=== PATIENT | male | born 1950 | race Caucasian/White ===

== ENCOUNTER 2017-05-30 14:13 | Emergency (ER) | payer OTHER ==
[2017-05-30 14:22] VITALS: BP 143/72; BMI 45.3
--- NOTE | 2017-05-30 14:59 | DR.EXTPAIN ---
HPI - Time seen Time seen: 15:30 - PCP Primary Care Physician: WILMER HEADLEY - HPI Comment HPI Comment: WORSE TODAY. RT CALF MORE SWOLLEN AND RED. - Complaint/Symptoms Chief Complaint Doctor Comments: HISTORY BELOW. Chief Complaint:: ABOUT 3 WEEKS AGO PT NOTICED A SORE TO HIS RIGHT LOWER LEG AND HE HAS AN APPT WITH WILMER HEADLEY ON 06/12/17 AND HE STATES I WAS IN PAIN AND COULD NOT WAIT, Self Treatment fo Chief Complaint: NEOSPORIN, - Nurses notes reviewed Nurses Notes Review: Yes - Source History Provided: Patient - Mode of arrival Mode of Arrival: Ambulatory - Timing Onset of Chief Complaint: 05/13/17 - Context History of: None - Associated signs and symptoms Associated Signs and Symptoms: Pain PMH - PMH Past Medical History: No Past Medical History: Alzheimers, Arthritis, Diabetes, Gout, Hypertension Past Surgical History: No Past Surgical History Comment: GERSON . - Family History History of Family Medical Conditions: Yes Family Medical History: Diabetes Mellitus, Cancer, Heart Failure, Hypertension - Social History Does patient currently use any type of tobacco product: No Have you used tobacco products in the last 12 months: No Type of Tobacco Use: None Does any household member use tobacco: No Alcohol Use: None Do you use any recreational Drugs:: No Lives With: Family Lives Where: Home - infectious screening In the last 2 months have you had wt loss of >10#?: NO Have you had fever, night sweats or hemotysis?: No Have you traveled outside the country in the last 6 months?: No Isolation: Standard ROS - Review of Systems Eyes: No Symptoms Reported ENTM: No Symptoms Reported Respiratoy: No Symptoms Reported Cardiovascular: No Symptoms Reported Gastrointestinal/Abdominal: No Symptoms Reported Genitourinary: No Symptoms Reported Neurological: No Symptoms Reported Musculoskeletal: Leg Integumentary: Change in Color, Other (EDEMA, PAIN) Hematologic/Lymphatic: No Symptoms Reported Endocrine: No Symptoms Reported All Other Systems: Reviewed and Negative PE - Vital Signs Vitals: Temperature 97.2 F Pulse Rate 78 Respiratory Rate 18 Blood Pressure 143/72 O2 Sat by Pulse Oximetry 94 - General Limitations: No Limitations General Appearance: Alert - Head Head Exam: Normal Inspection - Eyes Eye exam: Normal Appearance - ENT ENT Exam: Normal External Ear Exam - Neck Neck Exam: Trachea Midline - Chest Chest Inspection: Symmetric Chest Wall Rise - Respiratory Respiratory Exam: Normal Lung Sounds Bilat Respiratory Exam: Bilateral Rhonchi, Lower Rhonchi - Cardiovascular Cardiovascular Exam: Regular Rate, Normal Rhythm, Normal Heart Sounds - Abdominal Exam Abdominal Exam: Normal Bowel Sounds, Soft. negative: Tenderness - Extremities Extremities Exam: Edema, Calf Tenderness (RT) - Back Back Exam: Normal Inspection, Full ROM. negative: Tenderness - Neurological Neurological Exam: Alert, Oriented X3 - Psychiatric Psychiatric Exam: Normal Affect, Normal Mood - Skin Skin Exam: Rash, Erythema MDM - Differential Diagnosis Differential Diagnosis: Other (CELLULITIS, EDEMA) Course - Treatment Treatment: SEE ORDERS. - Education/Counseling Education/Counseling: Patient, Family, Education Educated On: Diagnosis, Needs for Follow Up ROR - Labs Reviewed Laboratory Results Reviewed?: Yes Result Diagrams: 05/30/17 15:30 05/30/17 15: Laboratory: 05/30/17 15:24 Leg - Left Gram Stain - Final 05/30/17 15:24 Leg - Left Wound Culture - Final Staphylococcus Aureus WBC 9.7 X10^3/uL (3.6-10.0) 05/30/17 15:30 RBC 4.43 X10^6/uL (4.7-6.0) L 05/30/17 15:30 Hgb 13.5 g/dL (13.5-18.0) 05/30/17 15:30 Hct 38.9 % (42.0-54.0) L 05/30/17 15:30 MCV 87.7 fL (80.0-100.0) 05/30/17 15:30 MCH 30.5 pg (27.0-34.0) 05/30/17 15:30 MCHC 34.8 g/dL (33.0-35.0) 05/30/17 15:30 RDW 14.1 % (11.6-16.5) 05/30/17 15:30 Plt Count 261 X10^3/uL (150.0-450.0) 05/30/17 15:30 MPV 7.5 fL (7.4-11.0) 05/30/17 15:30 Neut % 71.0 % (42.0-75.0) 05/30/17 15:30 Lymph % 20.6 % (21.0-51.0) L 05/30/17 15:30 Burnet % 6.7 % (0.0-13.0) 05/30/17 15:30 Eos % 0.8 % (0.9-2.9) L 05/30/17 15:30 Baso % 0.9 % (0.2-1.0) 05/30/17 15:30 Neut # 6.9 x10^3/uL (2.2-4.8) H 05/30/17 15:30 Lymph # 2.0 X10^3/uL (1.3-2.9) 05/30/17 15:30 Burnet # 0.6 x10^3/uL (0.3-0.8) 05/30/17 15:30 Eos # 0.1 x10^3/uL (0.0-0.2) 05/30/17 15:30 Baso # 0.1 X10^3/uL (0.0-0.1) 05/30/17 15:30 Absolute Nucleated RBC 0.0 /100WBC 05/30/17 15:30 Sodium 139 mmol/L (136-145) 05/30/17 15:30 Corrected Sodium TNP 05/30/17 15:30 Potassium 4.3 mmol/L (3.5-5.1) 05/30/17 15:30 Chloride 103 mmol/L (98-107) 05/30/17 15:30 Carbon Dioxide 29.7 mmol/L (21-32) 05/30/17 15:30 BUN 11 mg/dL (7-18) 05/30/17 15:30 Creatinine 1.11 mg/dL (0.70-1.30) 05/30/17 15:30 Est GFR (MDRD) Af Amer > 60 (>60) 05/30/17 15:30 Est GFR (MDRD) Non-Af > 60 (>60) 05/30/17 15:30 Glucose 104 mg/dL (65-99) H 05/30/17 15:30 Calcium 9.1 mg/dL (8.5-10.1) 05/30/17 15:30 Corrected Calcium TNP 05/30/17 15:30 Total Bilirubin 0.40 mg/dL (0.2-1.0) 05/30/17 15:30 AST 12 Units/L (15-37) L 05/30/17 15:30 ALT 18 Units/L (12-78) 05/30/17 15:30 Alkaline Phosphatase 101 Units/L (46-116) 05/30/17 15:30 Total Protein 7.5 g/dL (6.4-8.2) 05/30/17 15:30 Albumin 3.5 g/dL (3.4-5.0) 05/30/17 15:30 Globulin 4.0 g/dL (2.5-4.5) 05/30/17 15:30 Albumin/Globulin Ratio 0.9 Ratio (1.1-2.1) L 05/30/17 15:30 - XRAY XRAY Interpreted by: Radiologist XRAY Findings: REPORT DISCUSS WITH PATIENT. - Diagnosis Discharge Problem: Cellulitis Qualifiers: Site of cellulitis: extremity Site of cellulitis of extremity: lower extremity Laterality: right Qualified Code(s): L03.115 - Cellulitis of right lower limb Edema Qualifiers: Edema type: localized Qualified Code(s): R60.0 - Localized edema - Discharge Plan Disposition: HOME, SELF-CARE Condition: Stable Prescriptions: Amoxicillin & Pot Clavulanate [AUGMENTIN TAB 875 mg/125 mg *] 1 tab PO BID #20 tab Mupirocin Calcium Cream [BACTROBAN CREAM 2%] 1 applic EXT BID #30 gm Sulfamethoxazole-Trimethoprim [BACTRIM DS TAB 800/160 MG *] 1 tab PO BID #20 tab - Follow ups/Referrals Follow ups/Referrals: Mack Fitzpatrick [Primary Care Provider] - 2 days - Instructions Instructions: Cellulitis, Adult, [id number], Edema, [id number] Additional Instructions: RETURN TO ED IF WORSE.
[2017-05-30] MEDS ORDERED: ZOSYN VIAL 3.375 GM 3.375 GM in NS 100 ML IV + SPIKE MINIBAG* 100 ML IV ONE (15:34)
[2017-05-30] MEDS ORDERED: LASIX IVP ONE ×2 (15:34→15:42)
[2017-05-30] MEDS ORDERED: ZOSYN VIAL 3.375 GM IV ONE (15:43)
[2017-05-30] MEDS ORDERED: NS 100 ML IV 200 ML IV ONE (15:43)
--- NOTE | 2017-05-30 15:45 | VAS ---
HISTORY: Right lower extremity edema Study: Right lower extremity venous Doppler Comparison: None Technique: Multiple grayscale sonographic images were obtained. Color duplex Doppler evaluation was p erformed. This examination is severely limited by the patient's body habitus and the degree of edema present in the right lower extremity. Findings: There is poor visualization of the common femoral, superficial femoral, and popliteal veins. The vein s are not visualized adequately enough to confirm normal compression. There does appear to be some fl ow present within the common femoral,and popliteal veins. Distal augmentation is identified in the po pliteal vein but cannot be confirmed in the superficial femoral or common femoral veins. There is a q uestion of some minimal flow present in the common femoral and popliteal veins. This examination is n ondiagnostic for the determination of deep venous thrombosis. IMPRESSION: Nondiagnostic examination for the determination of deep venous thrombosis. Reported By:
[2017-05-30 15:52] LABS: BASOPHILS # (AUTO) 0.1 X10^3/uL (0.0-0.1); BASOPHILS % (AUTO) 0.9 % (0.2-1.0); EOSINOPHILS # (AUTO) 0.1 x10^3/uL (0.0-0.2); EOSINOPHILS % (AUTO) 0.8 % (0.9-2.9); HEMATOCRIT 38.9 % (42.0-54.0); HEMOGLOBIN 13.5 g/dL (13.5-18.0); LYMPHOCYTES % (AUTO) 20.6 % (21.0-51.0); MEAN CORPUSCULAR HEMOGLOBIN 30.5 pg (27.0-34.0); MEAN CORPUSCULAR HGB CONC 34.8 g/dL (33.0-35.0); MEAN CORPUSCULAR VOLUME 87.7 fL (80.0-100.0); MEAN PLATELET VOLUME 7.5 fL (7.4-11.0); MONOCYTES # (AUTO) 0.6 x10^3/uL (0.3-0.8); MONOCYTES % (AUTO) 6.7 % (0.0-13.0); NEUTROPHILS # (AUTO) 6.9 x10^3/uL (2.2-4.8); PLATELET COUNT 261 X10^3/uL (150.0-450.0); RED BLOOD COUNT 4.43 X10^6/uL (4.7-6.0); RED CELL DISTRIBUTION WIDTH 14.1 % (11.6-16.5); WHITE BLOOD COUNT 9.7 X10^3/uL (3.6-10.0)
[2017-05-30 16:04] LABS: ALANINE AMINOTRANSFERASE 18 Units/L (12-78); ALBUMIN 3.5 g/dL (3.4-5.0); ALKALINE PHOSPHATASE 101 Units/L (46-116); ASPARTATE AMINO TRANSFERASE 12 Units/L (15-37); BLOOD UREA NITROGEN 11 mg/dL (7-18); CALCIUM 9.1 mg/dL (8.5-10.1); CARBON DIOXIDE 29.7 mmol/L (21-32); CHLORIDE 103 mmol/L (98-107); CREATININE 1.11 mg/dL (0.70-1.30); SODIUM 139 mmol/L (136-145); TOTAL PROTEIN 7.5 g/dL (6.4-8.2); eGFR BLACK RACES > 60 (>60); eGFR NON BLACK RACES > 60 (>60)
[2017-05-30] MEDS ORDERED: BACTRIM DS TAB PO ONE (17:38)
== END 2017-05-30 18:14 | disposition home or self-care (01) ==
LOC: ER 14:31
DX: L03.115 Cellulitis of right lower limb (principal); R60.0 Localized edema; B95.61 Methicillin susceptible Staphylococcus aureus infection as the cause of diseases classified elsewhere
CPT/HCPCS: 36415; 80053; 85025; 87070; 87075; 87077; 87186; 87205; 93971; 96365; 96374; 96375; 99282; 99283; A4222; J1940; J2543

== ENCOUNTER → 2017-06-25 | Outpatient (CLI) | payer OTHER ==
[2017-05-30 14:22] VITALS: BP 143/72
[~2017-06-25] MED LIST: NS 100 ML IV 100 ML IV ONE
[2017-06-25 09:42] LABS: CREATININE 1.34 mg/dL (0.70-1.30)
--- NOTE | 2017-06-25 17:24 | CT ---
Indication: Claudication . Exam: CTA lower extremities with and without contrast. Technique: Axial spiral images were obtained from the lung bases through the feet before after admini stration of IV contrast. Coronal and sagittal 3D MIP reconstructions were performed. Findings: There are mild linear densities along the lung bases is posteriorly. There is mild calcifie d plaque throughout the aorta extending into the branch vessels causing mild narrowing along the orig in of the superior mesenteric and celiac arteries. There is a stent within the left renal artery . Th ere is moderate calcified plaque throughout the infrarenal aorta with a small 2.5 cm fusiform aneurys m of the infrarenal aorta which tapers distally to the bifurcation. There is no dissection. There is mild hypertrophy of the caudate and left lobes of the liver with fatty replacement throughout. The sp vanda measures 13 cm in length. The adrenals are normal. The kidneys are normal size and function norm ally with no hydronephrosis or renal stones. There is a 3 cm cyst along the lower pole left kidney an d a 1.5 cm cyst along the upper pole. No adenopathy or ascites is seen. The mesentery is unremarkable . The bladder is unremarkable. There is moderate calcified plaque along both iliac arteries causing narrowing in the range of 40-50% throughout . There is mild plaque scattered along both external iliac arteries causing mild 40-50% n arrowing distally. There is mild plaque along the common femoral arteries causing minimal narrowing. There is mild calcified plaque scattered along both proximal superficial femoral artery with moderate plaque seen distally causing moderate narrowing in the range of 70-80% distally to the popliteal art yesica . There is mild to moderate plaque scattered in both popliteal arteries causing mild narrowing di stally . There is mild calcified plaque along both trifurcation vessels which are otherwise patent di stally with the anterior and posterior tibial artery patent into the foot bilaterally. The peroneal a rteries are not well visualized distally. The bones are intact. Impression: Moderate calcified plaque throughout the aorta with a small 2.5 cm fusiform aneurysm of the infrarena l aorta with no dissection . Moderate calcified plaque along both iliac arteries causing 30-50% narrowing throughout. Moderate calcified plaque scattered throughout both superficial femoral arteries which is more severe distally and is causing narrowing in the range of 70-80% Mild to moderate calcified plaque along both popliteal arteries causing 40-50% narrowing distally wit h patent bifurcate trifurcation vessels bilaterally and a 2 vessel runoff seen to both feet. Mild bibasilar atelectasis or scarring Mild chronic liver changes . Left renal cysts. Reported By:
== END ==
LOC: RAD 09:10
PROVIDERS: ATTEND Internal Medicine
DX: I73.89 Other specified peripheral vascular diseases (principal); E11.622 Type 2 diabetes mellitus with other skin ulcer
CPT/HCPCS: 36415; 73706; 82565; 84520; A4222

== ENCOUNTER 2018-11-23 14:58 | Inpatient (IN) ==
[~2018-11-23 14:58] MED LIST changes: +FORTAZ or TAZICEF VIAL INJ IVP ONE; -NS 100 ML IV 100 ML IV ONE; +ROBITUSSIN DM PO ONE
[2018-11-23] MEDS ORDERED: NS 1/2 1000 ML IV IV ONE (16:23)
[2018-11-23] MEDS ORDERED: FORTAZ or TAZICEF VIAL INJ IVP ONE ×2 (16:40→22:00)
[2018-11-23] MEDS ORDERED: LEVAQUIN PREMIX IV 750 MG IV ONE (17:33)
[2018-11-23] MEDS ORDERED: DUONEB 0.5 MG/3 MG NEB ONE (17:34)
[2018-11-23] MEDS ORDERED: SOLU-Medrol 40 MG VIAL IVP ONE (22:00)
[2018-11-23] MEDS ORDERED: ROBITUSSIN DM PO ONE (22:00)
[2018-11-23] MEDS ORDERED: HumuLIN R SUBCUT ONE (22:29)
[2018-11-23] MEDS ORDERED: TYLENOL 325 MG TAB PO ONE (23:31)
[2018-11-24] MEDS ORDERED: ROBITUSSIN DM ONE ×4 (04:00→22:00)
[2018-11-24] MEDS ORDERED: FORTAZ or TAZICEF VIAL INJ ONE ×3 (06:00→14:00)
[2018-11-24] MEDS ORDERED: SOLU-Medrol 40 MG VIAL ONE ×3 (06:00→22:00)
[2018-11-24] MEDS ORDERED: ASPIRIN ONE (08:48)
[2018-11-24] MEDS ORDERED: SYNTHROID 100 mcg TAB ONE (09:00)
[2018-11-24] MEDS ORDERED: JANUVIA PO ONE (09:00)
[2018-11-24] MEDS ORDERED: TRADJENTA PO ONE (09:00)
[2018-11-24] MEDS ORDERED: HumuLIN R ONE ×2 (09:00→12:14)
[2018-11-24] MEDS ORDERED: PLAVIX ONE (09:00)
[2018-11-24] MEDS ORDERED: ZYLOPRIM ONE (09:00)
[2018-11-24] MEDS ORDERED: PriLOSEC ONE (09:00)
[2018-11-24] MEDS ORDERED: GLUCOTROL XL ONE (09:00)
[2018-11-24] MEDS ORDERED: COZAAR ONE (09:00)
[2018-11-24] MEDS ORDERED: MOBIC TAB 15 MG PO ONE (09:00)
[2018-11-24] MEDS ORDERED: ZOCOR TAB 40 MG ONE (09:00)
[2018-11-24] MEDS ORDERED: HYDROCHLOROTHIAZIDE 12.5 MG CAP ONE (09:00)
[2018-11-24] MEDS ORDERED: MIRALAX POWDER (1 DOSE 17 G) ONE (09:00)
[2018-11-24] MEDS ORDERED: NORCO 10/325 TAB ONE ×3 (10:00→22:00)
[2018-11-24] MEDS ORDERED: GLUCOPHAGE ONE ×2 (10:00→22:00)
[2018-11-24] MEDS ORDERED: NS 1/2 1000 ML IV ONE (10:50)
[2018-11-24] MEDS ORDERED: NS 1000 ML ONE ×2 (12:00→23:05)
[2018-11-24] MEDS ORDERED: SODIUM BICARBONATE 8.4% INJ ADULT ONE (12:00)
[2018-11-24] MEDS ORDERED: VANCOMYCIN HCL 1 GM VIAL ONE (12:00)
[2018-11-24] MEDS ORDERED: MORPHINE SULFATE INJ 2 MG INJ ONE ×2 (12:00→16:00)
[2018-11-24] MEDS ORDERED: D5 1/2 NS 1000 ML ONE (17:30)
[2018-11-24] MEDS ORDERED: ANTIVERT TAB 25 MG ONE (21:00)
[2018-11-24] MEDS ORDERED: NORVASC TAB 5 MG ONE (21:00)
[2018-11-24] MEDS ORDERED: ZyrTEC TAB 10 MG ONE (21:00)
[2018-11-24] MEDS ORDERED: LANOXIN INJ ONE (23:05)
[2018-11-25] MEDS ORDERED: SODIUM BICARBONATE 8.4% INJ ADULT IV ONE ×2 (01:20→22:00)
[2018-11-25] MEDS ORDERED: NS 1000 ML IV ONE ×2 (01:20→22:00)
[2018-11-25] MEDS ORDERED: NORCO 10/325 TAB PO ONE ×3 (04:00→18:45)
[2018-11-25] MEDS ORDERED: ROBITUSSIN DM PO ONE ×4 (04:00→21:00)
[2018-11-25] MEDS ORDERED: HumuLIN R SUBCUT ONE ×2 (05:30→12:30)
[2018-11-25] MEDS ORDERED: SOLU-Medrol 40 MG VIAL IVP ONE ×3 (06:00→22:00)
[2018-11-25] MEDS ORDERED: ZyrTEC TAB 10 MG PO ONE (08:00)
[2018-11-25] MEDS ORDERED: HYZAAR 50/12.5 MG PO ONE (08:00)
[2018-11-25] MEDS ORDERED: MIRALAX POWDER (1 DOSE 17 G) PO ONE (08:00)
[2018-11-25] MEDS ORDERED: ZOCOR TAB 40 MG PO ONE (08:00)
[2018-11-25] MEDS ORDERED: PriLOSEC PO ONE (08:00)
[2018-11-25] MEDS ORDERED: SYNTHROID 100 mcg TAB PO ONE (08:00)
[2018-11-25] MEDS ORDERED: ZYLOPRIM PO ONE (08:00)
[2018-11-25] MEDS ORDERED: LEVAQUIN PREMIX IV 500 MG IV ONE (08:00)
[2018-11-25] MEDS ORDERED: JANUVIA PO ONE (08:00)
[2018-11-25] MEDS ORDERED: PLAVIX PO ONE (08:00)
[2018-11-25] MEDS ORDERED: TRADJENTA PO ONE (08:00)
[2018-11-25] MEDS ORDERED: GLUCOTROL XL PO ONE (08:00)
[2018-11-25] MEDS ORDERED: GLUCOPHAGE PO ONE ×2 (08:00→21:00)
[2018-11-25] MEDS ORDERED: MOBIC TAB 15 MG PO ONE (08:00)
[2018-11-25] MEDS ORDERED: ECOTRIN TAB 325 MG PO ONE (08:00)
[2018-11-25] MEDS ORDERED: NS 250 ML IV IV ONE (13:00)
[2018-11-25] MEDS ORDERED: VANCOMYCIN HCL 1 GM VIAL IV ONE (13:00)
[2018-11-25] MEDS ORDERED: FORTAZ or TAZICEF VIAL INJ IVP ONE ×2 (14:00→22:00)
[2018-11-25] MEDS ORDERED: MILK OF MAGNESIA PO ONE (21:00)
[2018-11-25] MEDS ORDERED: COLACE CAP 100 MG PO ONE (21:00)
[2018-11-25] MEDS ORDERED: ANTIVERT TAB 25 MG PO ONE (21:00)
[2018-11-26] MEDS ORDERED: MORPHINE SULFATE INJ 2 MG INJ IVP PRN ×2 (05:42→06:41)
[2018-11-26] MEDS ORDERED: TYLENOL 325 MG TAB PO PRN (06:32)
[2018-11-26 06:52] LABS: BASOPHILS % (AUTO) 0.1 % (0.2-1.0); HEMATOCRIT 33.7 % (42.0-54.0); HEMOGLOBIN 11.6 g/dL (13.5-18.0); LYMPHOCYTES # (AUTO) 0.5 X10^3/uL (1.3-2.9); LYMPHOCYTES % (AUTO) 3.4 % (21.0-51.0); MEAN CORPUSCULAR HEMOGLOBIN 31.2 pg (27.0-34.0); MEAN CORPUSCULAR HGB CONC 34.3 g/dL (33.0-35.0); MEAN CORPUSCULAR VOLUME 90.9 fL (80.0-100.0); MEAN PLATELET VOLUME 8.1 fL (7.4-11.0); MONOCYTES # (AUTO) 0.4 x10^3/uL (0.3-0.8); MONOCYTES % (AUTO) 2.6 % (0.0-13.0); NEUTROPHILS # (AUTO) 13.9 x10^3/uL (2.2-4.8); NEUTROPHILS % (AUTO) 93.9 % (42.0-75.0); PLATELET COUNT 280 X10^3/uL (150.0-450.0); RED BLOOD COUNT 3.71 X10^6/uL (4.7-6.0); RED CELL DISTRIBUTION WIDTH 15.1 % (11.6-16.5); WHITE BLOOD COUNT 14.8 X10^3/uL (3.6-10.0)
[2018-11-26 07:07] LABS: ALBUMIN 1.9 g/dL (3.4-5.0); CALCIUM 9.2 mg/dL (8.5-10.1); CARBON DIOXIDE 24.7 mmol/L (21-32); COR CA(FOR HYPOALB) 10.9 mg/dL (8.5-10.1); CREATININE 2.56 mg/dL (0.70-1.30); TOTAL PROTEIN 6.6 g/dL (6.4-8.2)
[2018-11-26 07:23] LABS: CARBON DIOXIDE 22.2 mmol/L (21-32); CREATININE 3.36 mg/dL (0.70-1.30)
[2018-11-26 07:24] LABS: ALBUMIN 1.9 g/dL (3.4-5.0); COR CA(FOR HYPOALB) 10.7 mg/dL (8.5-10.1); TOTAL PROTEIN 6.8 g/dL (6.4-8.2)
[2018-11-26 07:25] LABS: BASOPHILS % (AUTO) 0.4 % (0.2-1.0); EOSINOPHILS % (AUTO) 0.1 % (0.9-2.9); HEMATOCRIT 35.3 % (42.0-54.0); LYMPHOCYTES % (AUTO) 1.8 % (21.0-51.0); MEAN CORPUSCULAR HEMOGLOBIN 30.9 pg (27.0-34.0); MEAN CORPUSCULAR VOLUME 90.7 fL (80.0-100.0); MEAN PLATELET VOLUME 8.3 fL (7.4-11.0); MONOCYTES % (AUTO) 1.6 % (0.0-13.0); NEUTROPHILS % (AUTO) 96.1 % (42.0-75.0); PLATELET COUNT 260 X10^3/uL (150.0-450.0); RED BLOOD COUNT 3.89 X10^6/uL (4.7-6.0); WHITE BLOOD COUNT 20.8 X10^3/uL (3.6-10.0)
[2018-11-26 07:26] LABS: BASOPHILS # (AUTO) 0.1 X10^3/uL (0.0-0.1); ERYTHROCYTE SEDIMENTATION RATE 102 MM/HOUR (0-15); LYMPHOCYTES # (AUTO) 0.4 X10^3/uL (1.3-2.9); MONOCYTES # (AUTO) 0.3 x10^3/uL (0.3-0.8); PLATELET MORPHOLOGY COMMENT NORMAL (NORMAL)
[2018-11-26 07:28] LABS: APPEARANCE,URINE SLIGHTLY HAZY (CLEAR); COLOR,URINE YELLOW (YELLOW)
[2018-11-26 07:29] LABS: BILIRUBIN,URINE NEGATIVE (NEGATIVE); BLOOD/HEMOGLOBIN,URINE 2+ (NEGATIVE); GLUCOSE, URINE NEGATIVE (NEGATIVE); KETONES,URINE NEGATIVE (NEGATIVE); LEUKOCYTE ESTERASE ,URINE NEGATIVE (NEGATIVE); NITRITES,URINE NEGATIVE (NEGATIVE); PROTEIN,URINE 2+ (NEGATIVE); UROBILINOGEN,URINE NORMAL (NORMAL)
[2018-11-26 07:30] LABS: AMORPHOUS SEDIMENT,UR 2+ /HPF (NEGATIVE); BACTERIA,URINE TRACE /HPF (NEGATIVE); HYALINE CASTS, URINE FEW /LPF (NEGATIVE); SQUAMOUS EPITHELIAL CELL,UR FEW /HPF (NEGATIVE)
[2018-11-26 07:32] LABS: CARBON DIOXIDE 23.6 mmol/L (21-32); CREATININE 4.08 mg/dL (0.70-1.30)
[2018-11-26 07:33] LABS: ALBUMIN 2.1 g/dL (3.4-5.0); CALCIUM 9.1 mg/dL (8.5-10.1); CKMB % 1.8 % (<4); COR CA(FOR HYPOALB) 10.6 mg/dL (8.5-10.1); CREATINE KINASE MB 1.7 ng/mL (0-4.0); TROPONIN I 0.03 ng/mL (0-1.5)
[2018-11-26 07:34] LABS: HEMOGLOBIN 12.1 g/dL (13.5-18.0); LYMPHOCYTES % (AUTO) 1.8 % (21.0-51.0); MEAN CORPUSCULAR HEMOGLOBIN 31.2 pg (27.0-34.0); MEAN CORPUSCULAR HGB CONC 34.6 g/dL (33.0-35.0); MEAN CORPUSCULAR VOLUME 90.1 fL (80.0-100.0); MONOCYTES % (AUTO) 1.5 % (0.0-13.0); NEUTROPHILS % (AUTO) 96.4 % (42.0-75.0); PLATELET COUNT 215 X10^3/uL (150.0-450.0); RED BLOOD COUNT 3.88 X10^6/uL (4.7-6.0); RED CELL DISTRIBUTION WIDTH 14.8 % (11.6-16.5); WHITE BLOOD COUNT 16.9 X10^3/uL (3.6-10.0)
[2018-11-26 07:35] LABS: BAND NEUTROPHILS % 6 % (0-10); BASOPHILS % (AUTO) 0.2 % (0.2-1.0); EOSINOPHILS % (AUTO) 0.1 % (0.9-2.9); LYMPHOCYTES # (AUTO) 0.3 X10^3/uL (1.3-2.9); MONOCYTES # (AUTO) 0.3 x10^3/uL (0.3-0.8); NEUTROPHILS # (AUTO) 16.3 x10^3/uL (2.2-4.8); PLATELET MORPHOLOGY COMMENT NORMAL (NORMAL)
[2018-11-26 07:40] LABS: ALBUMIN 2.5 g/dL (3.4-5.0); CALCIUM 9.2 mg/dL (8.5-10.1); CARBON DIOXIDE 25.4 mmol/L (21-32); CKMB % 1.3 % (<4); COR CA(FOR HYPOALB) 10.4 mg/dL (8.5-10.1); CREATINE KINASE MB 1.6 ng/mL (0-4.0); CREATININE 3.87 mg/dL (0.70-1.30); TOTAL PROTEIN 7.6 g/dL (6.4-8.2)
[2018-11-26 07:41] LABS: TROPONIN I 0.07 ng/mL (0-1.5)
[2018-11-26 07:46] LABS: BASOPHILS % (AUTO) 0.2 % (0.2-1.0); HEMATOCRIT 37.4 % (42.0-54.0); HEMOGLOBIN 12.8 g/dL (13.5-18.0); LYMPHOCYTES # (AUTO) 0.6 X10^3/uL (1.3-2.9); LYMPHOCYTES % (AUTO) 3.3 % (21.0-51.0); MEAN CORPUSCULAR HGB CONC 34.2 g/dL (33.0-35.0); MEAN CORPUSCULAR VOLUME 90.7 fL (80.0-100.0); MEAN PLATELET VOLUME 8.4 fL (7.4-11.0); MONOCYTES % (AUTO) 2.6 % (0.0-13.0); NEUTROPHILS # (AUTO) 18.2 x10^3/uL (2.2-4.8); NEUTROPHILS % (AUTO) 93.9 % (42.0-75.0); PLATELET COUNT 217 X10^3/uL (150.0-450.0); RED BLOOD COUNT 4.13 X10^6/uL (4.7-6.0); RED CELL DISTRIBUTION WIDTH 14.6 % (11.6-16.5); WHITE BLOOD COUNT 19.4 X10^3/uL (3.6-10.0)
[2018-11-26 07:47] LABS: BAND NEUTROPHILS % 7 % (0-10); MONOCYTES # (AUTO) 0.5 x10^3/uL (0.3-0.8); PLATELET MORPHOLOGY COMMENT NORMAL (NORMAL)
[2018-11-26 07:57] LABS: BAND NEUTROPHILS % 4 % (0-10); PLATELET MORPHOLOGY COMMENT NORMAL (NORMAL)
[2018-11-26] MEDS ORDERED: MILK OF MAGNESIA PO PRN (08:09)
[2018-11-26] MEDS ORDERED: HYDROCHLOROTHIAZIDE 12.5 MG CAP PO SCH (09:00)
[2018-11-26] MEDS ORDERED: COZAAR PO SCH (09:00)
[2018-11-26] MEDS: PriLOSEC PO SCH (09:06)
[2018-11-26 14:50] LABS: ABG BASE EXCESS -3.4 mmol/L (-2.0-2.0); ABG HCO3 22.7 mmol/L (22-26); FRACTIONATED INSPIRED OXYGEN 100
[2018-11-26 15:33] LABS: ABG HCO3 23.1 mmol/L (22-26); FRACTIONATED INSPIRED OXYGEN 40
[2018-11-26] MEDS: HumuLIN R SUBCUT PRN ×2 (17:39→20:53)
--- NOTE | 2018-11-26 17:47 | PCM.PROG ---
Progress Note - Progress Note for Day of Date of Exam: 11/25/18 - Subjective Subjective: the patient is a 68-year-old white male who was admitted secondary to acute respiratory failure with multifocal pneumonia. Patient continues to be on BiPAP. Patient is alert and oriented. It got very tachycardic with rates to 1 twice a day. Blood pressure has been in systolic range of 70-90. Patient denies any complaints at present. - Past Medical Family Social History Past Med/Fam/Surg Hx: No changes since H&P Allergies: Allergies No Known Drug Allergies Allergy (Verified 05/30/17 14:17) - Review of Systems ROS: No change since H&P - Vital Signs and I&O's Vital Signs: Blood Pressure 143/72 - Physical Exam Oriented: Normal Eyes: Normal Ear: Normal Nose: Normal Throat: Normal Respiratory: Diminished, OTHER (BiPAP) Cardiovascular: Tachycardia : Normal Auscultation: Bowel Sounds: Normal Palpation: Normal Tenderness: Normal Skin: Other (PVD changes to BLE) Musculoskeletal: Swelling (BLE) Psychiatric: Normal Mood Description: Calm Affect: Normal Speech Pattern: Clear - Laboratory and Diagnostics Result Diagrams: 11/26/18 05:36 11/26/18 05:36 Labs: 11/25/18 13:05 Sputum - Expectorated Sputum Sputum Culture - Preliminary 11/25/18 13:05 Sputum - Expectorated Sputum - Final 11/23/18 16:30 Blood Blood Culture - Preliminary 11/23/18 16:20 Blood Blood Culture - Preliminary 11/23/18 23:57 Blood Blood Culture - Preliminary 11/23/18 23:54 Blood Blood Culture - Preliminary 11/24/18 11:02 Sputum - Expectorated Sputum Sputum Culture - Final 11/24/18 11:02 Sputum - Expectorated Sputum - Final Laboratory WBC 14.8 X10^3/uL (3.6-10.0) H 11/26/18 05:36 RBC 3.71 X10^6/uL (4.7-6.0) L 11/26/18 05:36 Hgb 11.6 g/dL (13.5-18.0) L 11/26/18 05:36 Hct 33.7 % (42.0-54.0) L 11/26/18 05:36 MCV 90.9 fL (80.0-100.0) 11/26/18 05:36 MCH 31.2 pg (27.0-34.0) 11/26/18 05:36 MCHC 34.3 g/dL (33.0-35.0) 11/26/18 05:36 RDW 15.1 % (11.6-16.5) 11/26/18 05:36 Plt Count 280 X10^3/uL (150.0-450.0) 11/26/18 05:36 Plt Count Comment Adequate (ADEQUATE) 11/26/18 05:36 MPV 8.1 fL (7.4-11.0) 11/26/18 05:36 Neut % (Auto) 93.9 % (42.0-75.0) H 11/26/18 05:36 Lymph % (Auto) 3.4 % (21.0-51.0) L 11/26/18 05:36 Mcdonald % (Auto) 2.6 % (0.0-13.0) 11/26/18 05:36 Eos % (Auto) 0.0 % (0.9-2.9) L 11/26/18 05:36 Baso % (Auto) 0.1 % (0.2-1.0) L 11/26/18 05:36 Neut # (Auto) 13.9 x10^3/uL (2.2-4.8) H 11/26/18 05:36 Lymph # (Auto) 0.5 X10^3/uL (1.3-2.9) L 11/26/18 05:36 Mcdonald # (Auto) 0.4 x10^3/uL (0.3-0.8) 11/26/18 05:36 Eos # (Auto) 0.0 x10^3/uL (0.0-0.2) 11/26/18 05:36 Baso # (Auto) 0.0 X10^3/uL (0.0-0.1) 11/26/18 05:36 Absolute Nucleated RBC 0.0 /100WBC 11/26/18 05:36 Total Counted 100 11/26/18 05:36 Neutrophils % (Manual) 92 % (39-76) H 11/26/18 05:36 Band Neutrophils % 4 % (0-10) 11/26/18 05:36 Lymphocytes % (Manual) 2 % (13-43) L 11/26/18 05:36 Monocytes % (Manual) 2 % (4-9) L 11/26/18 05:36 Eosinophils % (Manual) 1 % (0-6) 11/25/18 05:25 Plt Morphology Comment Normal (NORMAL) 11/26/18 05:36 RBC Morphology Normal (NORMAL) 11/26/18 05:36 ESR 102 MM/HOUR (0-15) H 11/25/18 05:25 INR Target Range - 11/23/18 15:05 INR 1.26 (0.8-1.3) 11/23/18 15:05 APTT 33.1 SECONDS (22.9-36.5) 11/23/18 15:05 PTT Comment - 11/23/18 15:05 D-Dimer 3250 ng/mL (0-400) H* 11/23/18 15:05 Sample Site Rb 11/26/18 11:25 ABG pH 7.370 (7.35-7.45) 11/26/18 11:25 ABG pCO2 40.0 mmHg (35.0-45.0) 11/26/18 11:25 ABG pO2 69.0 mmHg (80.0-100.0) L 11/26/18 11:25 ABG HCO3 23.1 mmol/L (22-26) 11/26/18 11:25 ABG O2 Saturation 93.0 % (90-100) 11/26/18 11:25 ABG Base Excess -2.0 mmol/L (-2.0-2.0) 11/26/18 11:25 Krzysztof Test Na 11/26/18 11:25 A-a Gradient 166.0 mmHg 11/26/18 11:25 FiO2 40 11/26/18 11:25 Blood Gas Comments Nathalie well 11/26/18 11:25 Sodium 140 mmol/L (136-145) 11/26/18 05:36 Corrected Sodium 146 mmol/L (136-145) H 11/26/18 05:36 Potassium 4.3 mmol/L (3.5-5.1) 11/26/18 05:36 Chloride 104 mmol/L (98-107) 11/26/18 05:36 Carbon Dioxide 24.7 mmol/L (21-32) 11/26/18 05:36 BUN 88 mg/dL (7-18) H 11/26/18 05:36 Creatinine 2.56 mg/dL (0.70-1.30) H 11/26/18 05:36 Est GFR (MDRD) Af Amer 32 (>60) L 11/26/18 05:36 Est GFR (MDRD) Non-Af 27 (>60) L 11/26/18 05:36 Glucose 335 mg/dL (65-99) H 11/26/18 05:36 Lactic Acid 2.4 mmol/L (0.4-2.0) H 11/23/18 16:20 Calcium 9.2 mg/dL (8.5-10.1) 11/26/18 05:36 Corrected Calcium 10.9 mg/dL (8.5-10.1) H 11/26/18 05:36 Total Bilirubin 0.30 mg/dL (0.2-1.0) 11/26/18 05:36 AST 18 Units/L (15-37) 11/26/18 05:36 ALT 20 Units/L (12-78) 11/26/18 05:36 Alkaline Phosphatase 105 Units/L (46-116) 11/26/18 05:36 Creatine Kinase 95 Units/L (39-308) 11/24/18 08:40 CK-MB (CK-2) 1.7 ng/mL (0-4.0) 11/24/18 08:40 CK/CKMB % Calc 1.8 % (<4) 11/24/18 08:40 Troponin I 0.03 ng/mL (0-1.5) 11/24/18 08:40 B-Natriuretic Peptide 165 pg/mL (0-79) H 11/23/18 15:05 Total Protein 6.6 g/dL (6.4-8.2) 11/26/18 05:36 Albumin 1.9 g/dL (3.4-5.0) L 11/26/18 05:36 Globulin 4.7 g/dL (2.5-4.5) H 11/26/18 05:36 Albumin/Globulin Ratio 0.4 Ratio (1.1-2.1) L 11/26/18 05:36 Specimen Type Random urine 11/24/18 19:15 Urine Color Yellow (YELLOW) 11/24/18 19:15 Urine Appearance Slightly hazy (CLEAR) 11/24/18 19:15 Urine pH 5.0 (5.0 - 8.0) 11/24/18 19:15 Ur Specific Reading 1.020 (1.000-1.030) 11/24/18 19:15 Urine Protein 2+ (NEGATIVE) 11/24/18 19:15 Urine Glucose (UA) Negative (NEGATIVE) 11/24/18 19:15 Urine Ketones Negative (NEGATIVE) 11/24/18 19:15 Urine Occult Blood 2+ (NEGATIVE) 11/24/18 19:15 Urine Nitrite Negative (NEGATIVE) 11/24/18 19:15 Urine Bilirubin Negative (NEGATIVE) 11/24/18 19:15 Urine Urobilinogen Normal (NORMAL) 11/24/18 19:15 Ur Leukocyte Esterase Negative (NEGATIVE) 11/24/18 19:15 Urine RBC 5-10 /HPF (NONE SEEN) 11/24/18 19:15 Urine WBC 0-2 /HPF (NONE SEEN) 11/24/18 19:15 Ur Squamous Epith Cells Few /HPF (NEGATIVE) 11/24/18 19:15 Amorphous Sediment 2+ /HPF (NEGATIVE) 11/24/18 19:15 Urine Bacteria Trace /HPF (NEGATIVE) 11/24/18 19:15 Hyaline Casts Few /LPF (NEGATIVE) 11/24/18 19:15 Ur Culture Indicated? No/not indicated 11/24/18 19:15 - Plan (1) Tachycardia Status: Acute Plan: Monitor rate and hypotension (2) Acute respiratory failure Status: Acute Qualifiers: Respiratory failure complication: hypoxia and hypercapnia Qualified Code(s): J96.01 - Acute respiratory failure with hypoxia; J96.02 - Acute respiratory failure with hypercapnia Plan: BIPAP (3) Chronic systolic heart failure Status: Acute Plan: Monitor IVF and kidney function (4) Hypoxia Status: Acute Plan: BiPap (5) Pneumonia Status: Acute Plan: Continue IV antibiotics (6) Edema Status: Acute Plan: Monitor kidney function
--- NOTE | 2018-11-26 17:51 | PCM.PROG ---
Progress Note - Progress Note for Day of Date of Exam: 11/26/18 - Subjective Subjective: The patient is a 68-year-old white male who was admitted secondary to acute respiratory failure with multifocal pneumonia. Patient continues to be on BiPAP at 30%. Patient denies the when on nasal cannula. Patient is alert and oriented. Tachycardia and hypotension have resolved. Patient denies any complaints at present. - Past Medical Family Social History Past Med/Fam/Surg Hx: No changes since H&P Allergies: Allergies No Known Drug Allergies Allergy (Verified 05/30/17 14:17) - Review of Systems ROS: No change since H&P - Vital Signs and I&O's Vital Signs: Pulse Rate [] 82 Respiratory Rate 31 Blood Pressure [] 147/73 Blood Pressure 143/72 O2 Sat by Pulse Oximetry 92 - Physical Exam Oriented: Normal Eyes: Normal Ear: Normal Nose: Normal Throat: Normal Respiratory: Diminished, OTHER (BiPAP) Cardiovascular: Tachycardia : Normal Auscultation: Bowel Sounds: Normal Tenderness: Normal Skin: Other (PVD changes to BLE) Musculoskeletal: Swelling (BLE) Psychiatric: Normal Mood Description: Calm Affect: Normal Speech Pattern: Clear - Laboratory and Diagnostics Result Diagrams: 11/26/18 05:36 11/26/18 05:36 Labs: 11/25/18 13:05 Sputum - Expectorated Sputum Sputum Culture - Preliminary 11/25/18 13:05 Sputum - Expectorated Sputum - Final 11/23/18 16:30 Blood Blood Culture - Preliminary 11/23/18 16:20 Blood Blood Culture - Preliminary 11/23/18 23:57 Blood Blood Culture - Preliminary 11/23/18 23:54 Blood Blood Culture - Preliminary 11/24/18 11:02 Sputum - Expectorated Sputum Sputum Culture - Final 11/24/18 11:02 Sputum - Expectorated Sputum - Final Laboratory WBC 14.8 X10^3/uL (3.6-10.0) H 11/26/18 05:36 RBC 3.71 X10^6/uL (4.7-6.0) L 11/26/18 05:36 Hgb 11.6 g/dL (13.5-18.0) L 11/26/18 05:36 Hct 33.7 % (42.0-54.0) L 11/26/18 05:36 MCV 90.9 fL (80.0-100.0) 11/26/18 05:36 MCH 31.2 pg (27.0-34.0) 11/26/18 05:36 MCHC 34.3 g/dL (33.0-35.0) 11/26/18 05:36 RDW 15.1 % (11.6-16.5) 11/26/18 05:36 Plt Count 280 X10^3/uL (150.0-450.0) 11/26/18 05:36 Plt Count Comment Adequate (ADEQUATE) 11/26/18 05:36 MPV 8.1 fL (7.4-11.0) 11/26/18 05:36 Neut % (Auto) 93.9 % (42.0-75.0) H 11/26/18 05:36 Lymph % (Auto) 3.4 % (21.0-51.0) L 11/26/18 05:36 Ray % (Auto) 2.6 % (0.0-13.0) 11/26/18 05:36 Eos % (Auto) 0.0 % (0.9-2.9) L 11/26/18 05:36 Baso % (Auto) 0.1 % (0.2-1.0) L 11/26/18 05:36 Neut # (Auto) 13.9 x10^3/uL (2.2-4.8) H 11/26/18 05:36 Lymph # (Auto) 0.5 X10^3/uL (1.3-2.9) L 11/26/18 05:36 Ray # (Auto) 0.4 x10^3/uL (0.3-0.8) 11/26/18 05:36 Eos # (Auto) 0.0 x10^3/uL (0.0-0.2) 11/26/18 05:36 Baso # (Auto) 0.0 X10^3/uL (0.0-0.1) 11/26/18 05:36 Absolute Nucleated RBC 0.0 /100WBC 11/26/18 05:36 Total Counted 100 11/26/18 05:36 Neutrophils % (Manual) 92 % (39-76) H 11/26/18 05:36 Band Neutrophils % 4 % (0-10) 11/26/18 05:36 Lymphocytes % (Manual) 2 % (13-43) L 11/26/18 05:36 Monocytes % (Manual) 2 % (4-9) L 11/26/18 05:36 Eosinophils % (Manual) 1 % (0-6) 11/25/18 05:25 Plt Morphology Comment Normal (NORMAL) 11/26/18 05:36 RBC Morphology Normal (NORMAL) 11/26/18 05:36 ESR 102 MM/HOUR (0-15) H 11/25/18 05:25 INR Target Range - 11/23/18 15:05 INR 1.26 (0.8-1.3) 11/23/18 15:05 APTT 33.1 SECONDS (22.9-36.5) 11/23/18 15:05 PTT Comment - 11/23/18 15:05 D-Dimer 3250 ng/mL (0-400) H* 11/23/18 15:05 Sample Site Rb 11/26/18 11:25 ABG pH 7.370 (7.35-7.45) 11/26/18 11:25 ABG pCO2 40.0 mmHg (35.0-45.0) 11/26/18 11:25 ABG pO2 69.0 mmHg (80.0-100.0) L 11/26/18 11:25 ABG HCO3 23.1 mmol/L (22-26) 11/26/18 11:25 ABG O2 Saturation 93.0 % (90-100) 11/26/18 11:25 ABG Base Excess -2.0 mmol/L (-2.0-2.0) 11/26/18 11:25 Krzysztof Test Na 11/26/18 11:25 A-a Gradient 166.0 mmHg 11/26/18 11:25 FiO2 40 11/26/18 11:25 Blood Gas Comments Nathalie well 11/26/18 11:25 Sodium 140 mmol/L (136-145) 11/26/18 05:36 Corrected Sodium 146 mmol/L (136-145) H 11/26/18 05:36 Potassium 4.3 mmol/L (3.5-5.1) 11/26/18 05:36 Chloride 104 mmol/L (98-107) 11/26/18 05:36 Carbon Dioxide 24.7 mmol/L (21-32) 11/26/18 05:36 BUN 88 mg/dL (7-18) H 11/26/18 05:36 Creatinine 2.56 mg/dL (0.70-1.30) H 11/26/18 05:36 Est GFR (MDRD) Af Amer 32 (>60) L 11/26/18 05:36 Est GFR (MDRD) Non-Af 27 (>60) L 11/26/18 05:36 Glucose 335 mg/dL (65-99) H 11/26/18 05:36 Lactic Acid 2.4 mmol/L (0.4-2.0) H 11/23/18 16:20 Calcium 9.2 mg/dL (8.5-10.1) 11/26/18 05:36 Corrected Calcium 10.9 mg/dL (8.5-10.1) H 11/26/18 05:36 Total Bilirubin 0.30 mg/dL (0.2-1.0) 11/26/18 05:36 AST 18 Units/L (15-37) 11/26/18 05:36 ALT 20 Units/L (12-78) 11/26/18 05:36 Alkaline Phosphatase 105 Units/L (46-116) 11/26/18 05:36 Creatine Kinase 95 Units/L (39-308) 11/24/18 08:40 CK-MB (CK-2) 1.7 ng/mL (0-4.0) 11/24/18 08:40 CK/CKMB % Calc 1.8 % (<4) 11/24/18 08:40 Troponin I 0.03 ng/mL (0-1.5) 11/24/18 08:40 B-Natriuretic Peptide 165 pg/mL (0-79) H 11/23/18 15:05 Total Protein 6.6 g/dL (6.4-8.2) 11/26/18 05:36 Albumin 1.9 g/dL (3.4-5.0) L 11/26/18 05:36 Globulin 4.7 g/dL (2.5-4.5) H 11/26/18 05:36 Albumin/Globulin Ratio 0.4 Ratio (1.1-2.1) L 07/26/19 05:36 Specimen Type Random urine 11/24/18 19:15 Urine Color Yellow (YELLOW) 11/24/18 19:15 Urine Appearance Slightly hazy (CLEAR) 11/24/18 19:15 Urine pH 5.0 (5.0 - 8.0) 11/24/18 19:15 Ur Specific [place] 1.020 (1.000-1.030) 11/24/18 19:15 Urine Protein 2+ (NEGATIVE) 11/24/18 19:15 Urine Glucose (UA) Negative (NEGATIVE) 11/24/18 19:15 Urine Ketones Negative (NEGATIVE) 11/24/18 19:15 Urine Occult Blood 2+ (NEGATIVE) 11/24/18 19:15 Urine Nitrite Negative (NEGATIVE) 11/24/18 19:15 Urine Bilirubin Negative (NEGATIVE) 11/24/18 19:15 Urine Urobilinogen Normal (NORMAL) 11/24/18 19:15 Ur Leukocyte Esterase Negative (NEGATIVE) 11/24/18 19:15 Urine RBC 5-10 /HPF (NONE SEEN) 11/24/18 19:15 Urine WBC 0-2 /HPF (NONE SEEN) 11/24/18 19:15 Ur Squamous Epith Cells Few /HPF (NEGATIVE) 11/24/18 19:15 Amorphous Sediment 2+ /HPF (NEGATIVE) 11/24/18 19:15 Urine Bacteria Trace /HPF (NEGATIVE) 11/24/18 19:15 Hyaline Casts Few /LPF (NEGATIVE) 11/24/18 19:15 Ur Culture Indicated? No/not indicated 11/24/18 19:15 - Plan (1) Tachycardia Status: Acute Plan: Monitor rate and hypotension (2) Acute respiratory failure Status: Acute Qualifiers: Respiratory failure complication: hypoxia and hypercapnia Qualified Code(s): J96.01 - Acute respiratory failure with hypoxia; J96.02 - Acute respiratory failure with hypercapnia Plan: BIPAP (3) Chronic systolic heart failure Status: Acute Plan: Monitor IVF and kidney function (4) Hypoxia Status: Acute Plan: BiPap (5) Pneumonia Status: Acute Plan: Continue IV antibiotics (6) Edema Status: Acute Plan: Monitor kidney function (7) Hypertension Status: Acute Plan: Current meds on hold due to recent hypotension. Monitor and restart as indicated.
[2018-11-26] MEDS: SOLU-Medrol 40 MG VIAL IVP SCH ×2 (17:53→21:18)
[2018-11-26] MEDS: ROBITUSSIN DM PO SCH ×4 (17:54→20:50)
[2018-11-26] MEDS: ZyrTEC TAB 10 MG PO SCH (17:56)
[2018-11-26] MEDS: PLAVIX PO SCH (17:58)
[2018-11-26] MEDS: TRADJENTA PO SCH (17:58)
[2018-11-26] MEDS: ZYLOPRIM PO SCH (17:58)
[2018-11-26] MEDS: NORCO 10/325 TAB PO SCH ×2 (17:59→18:13)
[2018-11-26] MEDS: JANUVIA PO SCH (18:00)
[2018-11-26] MEDS: MIRALAX POWDER (1 DOSE 17 G) PO SCH (18:00)
[2018-11-26] MEDS: MOBIC TAB 15 MG PO SCH (18:00)
[2018-11-26] MEDS: ECOTRIN TAB 325 MG PO SCH (18:05)
[2018-11-26] MEDS: GLUCOPHAGE PO SCH ×2 (18:05→20:49)
[2018-11-26] MEDS: NS 1000 ML 1,000 ML with SODIUM BICARBONATE 8.4% INJ ADULT 50 ML IV SCH ×4 (18:06→18:07)
[2018-11-26] MEDS: SYNTHROID 100 mcg TAB PO SCH (18:06)
[2018-11-26] MEDS: GLUCOTROL XL PO SCH (18:07)
[2018-11-26] MEDS: FORTAZ or TAZICEF VIAL INJ IVP SCH ×2 (18:12→21:18)
[2018-11-26] MEDS: ANTIVERT TAB 25 MG PO SCH (20:48)
[2018-11-26] MEDS: NORVASC TAB 5 MG PO SCH (20:49)
[2018-11-26] MEDS: MILK OF MAGNESIA PO SCH (20:50)
[2018-11-26] MEDS: ZOCOR TAB 20 MG PO SCH (20:51)
[2018-11-26] MEDS ORDERED: ZOCOR TAB 40 MG PO SCH (21:00)
[2018-11-27] MEDS: XOPENEX 1.25 MG/3 ML NEBULE NEB SCH ×4 (00:13→17:08)
[2018-11-27] MEDS: NORCO 10/325 TAB PO SCH ×5 (04:21→20:50)
[2018-11-27 05:34] LABS: BASOPHILS % (AUTO) 0.3 % (0.2-1.0); HEMATOCRIT 36.3 % (42.0-54.0); HEMOGLOBIN 12.2 g/dL (13.5-18.0); LYMPHOCYTES # (AUTO) 0.6 X10^3/uL (1.3-2.9); LYMPHOCYTES % (AUTO) 4.4 % (21.0-51.0); MEAN CORPUSCULAR HEMOGLOBIN 30.9 pg (27.0-34.0); MEAN CORPUSCULAR HGB CONC 33.6 g/dL (33.0-35.0); MEAN PLATELET VOLUME 8.2 fL (7.4-11.0); MONOCYTES # (AUTO) 0.4 x10^3/uL (0.3-0.8); MONOCYTES % (AUTO) 2.8 % (0.0-13.0); NEUTROPHILS % (AUTO) 92.5 % (42.0-75.0); PLATELET COUNT 324 X10^3/uL (150.0-450.0); RED BLOOD COUNT 3.95 X10^6/uL (4.7-6.0); RED CELL DISTRIBUTION WIDTH 14.9 % (11.6-16.5)
[2018-11-27 05:39] LABS: CALCIUM 9.6 mg/dL (8.5-10.1); CARBON DIOXIDE 24.9 mmol/L (21-32); CREATININE 2.03 mg/dL (0.70-1.30)
[2018-11-27] MEDS: GLUCOTROL XL PO SCH (06:04)
[2018-11-27] MEDS: HumuLIN R SUBCUT PRN ×4 (06:04→20:57)
[2018-11-27] MEDS: FORTAZ or TAZICEF VIAL INJ IVP SCH ×3 (06:06→21:07)
[2018-11-27] MEDS: SYNTHROID 100 mcg TAB PO SCH (06:06)
[2018-11-27] MEDS: SOLU-Medrol 40 MG VIAL IVP SCH ×3 (06:07→21:07)
[2018-11-27] MEDS: LEVAQUIN PREMIX IV 500 MG 500 MG/100 ML BAG IV SCH ×2 (06:08→18:27)
[2018-11-27] MEDS: NS 1000 ML 1,000 ML with SODIUM BICARBONATE 8.4% INJ ADULT 50 ML IV SCH ×4 (06:09→19:57)
[2018-11-27 09:00] LABS: ABG ALLEN TEST POS; ABG BASE EXCESS 2.2 mmol/L (-2.0-2.0); ABG HCO3 26.5 mmol/L (22-26)
[2018-11-27] MEDS: MILK OF MAGNESIA PO SCH ×2 (09:38→20:50)
[2018-11-27] MEDS: PLAVIX PO SCH (09:38)
[2018-11-27] MEDS: ROBITUSSIN DM PO SCH ×4 (09:39→20:51)
[2018-11-27] MEDS: ZYLOPRIM PO SCH (09:39)
[2018-11-27] MEDS: JANUVIA PO SCH (09:39)
[2018-11-27] MEDS: ECOTRIN TAB 325 MG PO SCH (09:39)
[2018-11-27] MEDS: ZyrTEC TAB 10 MG PO SCH (09:39)
[2018-11-27] MEDS: PriLOSEC PO SCH (09:40)
[2018-11-27] MEDS: GLUCOPHAGE PO SCH ×2 (09:40→20:49)
[2018-11-27] MEDS: TRADJENTA PO SCH ×2 (09:41→09:43)
[2018-11-27] MEDS: MOBIC TAB 15 MG PO SCH (09:41)
[2018-11-27] MEDS: MIRALAX POWDER (1 DOSE 17 G) PO SCH (09:42)
[2018-11-27] MEDS ORDERED: XYLOCAINE 1 % (PLAIN) ONE (11:03)
[2018-11-27] MEDS: LR 1000 ML IV 1,000 ML IV SCH (12:49)
[2018-11-27] MEDS ORDERED: NS 100 ML IV + SPIKE MINIBAG* 100 ML ONE (13:54)
[2018-11-27] MEDS ORDERED: GLUCOPHAGE ONE (20:38)
[2018-11-27] MEDS: ANTIVERT TAB 25 MG PO SCH (20:50)
[2018-11-27] MEDS: ZOCOR TAB 20 MG PO SCH (20:51)
[2018-11-27] MEDS: NORVASC TAB 5 MG PO SCH (20:51)
[2018-11-28] MEDS: XOPENEX 1.25 MG/3 ML NEBULE NEB SCH ×4 (00:33→17:16)
[2018-11-28] MEDS: LR 1000 ML IV 1,000 ML IV SCH ×2 (02:22→16:51)
[2018-11-28] MEDS ORDERED: TUSSIONEX PENNKINETIC SUSP ONE (03:10)
[2018-11-28] MEDS: TUSSIONEX PENNKINETIC SUSP PO PRN ×2 (03:11→21:45)
[2018-11-28 04:38] LABS: BASOPHILS % (AUTO) 0.1 % (0.2-1.0); HEMATOCRIT 35.7 % (42.0-54.0); HEMOGLOBIN 11.9 g/dL (13.5-18.0); LYMPHOCYTES # (AUTO) 0.5 X10^3/uL (1.3-2.9); LYMPHOCYTES % (AUTO) 4.5 % (21.0-51.0); MEAN CORPUSCULAR HEMOGLOBIN 30.9 pg (27.0-34.0); MEAN CORPUSCULAR HGB CONC 33.5 g/dL (33.0-35.0); MEAN CORPUSCULAR VOLUME 92.3 fL (80.0-100.0); MEAN PLATELET VOLUME 8.2 fL (7.4-11.0); MONOCYTES # (AUTO) 0.2 x10^3/uL (0.3-0.8); MONOCYTES % (AUTO) 2.5 % (0.0-13.0); NEUTROPHILS # (AUTO) 9.4 x10^3/uL (2.2-4.8); NEUTROPHILS % (AUTO) 92.9 % (42.0-75.0); PLATELET COUNT 281 X10^3/uL (150.0-450.0); RED BLOOD COUNT 3.86 X10^6/uL (4.7-6.0); RED CELL DISTRIBUTION WIDTH 14.8 % (11.6-16.5); WHITE BLOOD COUNT 10.1 X10^3/uL (3.6-10.0)
[2018-11-28 04:51] LABS: ALBUMIN 1.9 g/dL (3.4-5.0); CALCIUM 9.2 mg/dL (8.5-10.1); CARBON DIOXIDE 27.6 mmol/L (21-32); COR CA(FOR HYPOALB) 10.9 mg/dL (8.5-10.1); CREATININE 1.66 mg/dL (0.70-1.30); TOTAL PROTEIN 6.1 g/dL (6.4-8.2)
[2018-11-28] MEDS: SOLU-Medrol 40 MG VIAL IVP SCH ×3 (06:29→21:44)
[2018-11-28] MEDS: FORTAZ or TAZICEF VIAL INJ IVP SCH ×3 (06:29→21:44)
[2018-11-28] MEDS: SYNTHROID 100 mcg TAB PO SCH (06:30)
[2018-11-28] MEDS: HumuLIN R SUBCUT PRN ×4 (06:31→21:44)
[2018-11-28] MEDS: GLUCOPHAGE PO SCH ×2 (09:00→21:42)
[2018-11-28] MEDS: ROBITUSSIN DM PO SCH ×4 (09:00→21:44)
[2018-11-28] MEDS: NORCO 10/325 TAB PO SCH ×4 (09:00→21:42)
[2018-11-28] MEDS: ZyrTEC TAB 10 MG PO SCH (09:00)
[2018-11-28] MEDS: ZYLOPRIM PO SCH (09:00)
[2018-11-28] MEDS: MOBIC TAB 15 MG PO SCH (09:00)
[2018-11-28] MEDS: ECOTRIN TAB 325 MG PO SCH (09:00)
[2018-11-28] MEDS: TRADJENTA PO SCH (09:00)
[2018-11-28] MEDS: JANUVIA PO SCH (09:00)
[2018-11-28] MEDS: PLAVIX PO SCH (09:00)
[2018-11-28] MEDS: GLUCOTROL XL PO SCH (09:00)
[2018-11-28] MEDS: PriLOSEC PO SCH (09:00)
[2018-11-28] MEDS ORDERED: GLUCOPHAGE ONE ×2 (09:14→21:35)
[2018-11-28] MEDS: MIRALAX POWDER (1 DOSE 17 G) PO SCH (11:07)
[2018-11-28] MEDS: MILK OF MAGNESIA PO SCH ×2 (11:07→21:42)
[2018-11-28] MEDS ORDERED: NS 100 ML IV + SPIKE MINIBAG* 100 ML ONE (13:07)
[2018-11-28] MEDS: ANTIVERT TAB 25 MG PO SCH (21:42)
[2018-11-28] MEDS: NORVASC TAB 5 MG PO SCH (21:43)
[2018-11-28] MEDS: ZOCOR TAB 20 MG PO SCH (21:44)
[2018-11-29] MEDS: XOPENEX 1.25 MG/3 ML NEBULE NEB SCH ×4 (00:45→18:01)
[2018-11-29 05:11] LABS: BASOPHILS % (AUTO) 0.1 % (0.2-1.0); HEMATOCRIT 35.5 % (42.0-54.0); HEMOGLOBIN 12.1 g/dL (13.5-18.0); LYMPHOCYTES # (AUTO) 0.6 X10^3/uL (1.3-2.9); LYMPHOCYTES % (AUTO) 4.9 % (21.0-51.0); MEAN CORPUSCULAR HEMOGLOBIN 30.9 pg (27.0-34.0); MEAN CORPUSCULAR VOLUME 90.9 fL (80.0-100.0); MEAN PLATELET VOLUME 7.8 fL (7.4-11.0); MONOCYTES # (AUTO) 0.3 x10^3/uL (0.3-0.8); MONOCYTES % (AUTO) 2.6 % (0.0-13.0); NEUTROPHILS # (AUTO) 11.5 x10^3/uL (2.2-4.8); NEUTROPHILS % (AUTO) 92.4 % (42.0-75.0); PLATELET COUNT 306 X10^3/uL (150.0-450.0); RED CELL DISTRIBUTION WIDTH 14.6 % (11.6-16.5); WHITE BLOOD COUNT 12.5 X10^3/uL (3.6-10.0)
[2018-11-29 05:24] LABS: ALANINE AMINOTRANSFERASE 14 Units/L (12-78); ALBUMIN 2.1 g/dL (3.4-5.0); ALKALINE PHOSPHATASE 90 Units/L (46-116); ASPARTATE AMINO TRANSFERASE 10 Units/L (15-37); BLOOD UREA NITROGEN 45 mg/dL (7-18); CALCIUM 9.2 mg/dL (8.5-10.1); CARBON DIOXIDE 28.5 mmol/L (21-32); CHLORIDE 105 mmol/L (98-107); COR CA(FOR HYPOALB) 10.7 mg/dL (8.5-10.1); COR NA(FOR HYPERGLY) 144 mmol/L (136-145); CREATININE 1.48 mg/dL (0.70-1.30); SODIUM 140 mmol/L (136-145); TOTAL PROTEIN 6.2 g/dL (6.4-8.2); eGFR NON BLACK RACES 50 (>60)
[2018-11-29] MEDS: LR 1000 ML IV 1,000 ML IV SCH ×3 (06:14→22:11)
[2018-11-29] MEDS: GLUCOTROL XL PO SCH (06:15)
[2018-11-29] MEDS: SYNTHROID 100 mcg TAB PO SCH (06:15)
[2018-11-29] MEDS: FORTAZ or TAZICEF VIAL INJ IVP SCH ×3 (06:15→22:04)
[2018-11-29] MEDS: LEVAQUIN PREMIX IV 500 MG 500 MG/100 ML BAG IV SCH (06:15)
[2018-11-29] MEDS: SOLU-Medrol 40 MG VIAL IVP SCH ×2 (06:15→13:02)
[2018-11-29] MEDS: HumuLIN R SUBCUT PRN ×4 (06:16→22:03)
[2018-11-29] MEDS ORDERED: GLUCOPHAGE ONE ×2 (08:37→20:49)
[2018-11-29] MEDS: JANUVIA PO SCH (08:49)
[2018-11-29] MEDS: PriLOSEC PO SCH (08:49)
[2018-11-29] MEDS: ROBITUSSIN DM PO SCH ×4 (08:49→22:04)
[2018-11-29] MEDS: MOBIC TAB 15 MG PO SCH (08:49)
[2018-11-29] MEDS: ECOTRIN TAB 325 MG PO SCH (08:51)
[2018-11-29] MEDS: GLUCOPHAGE PO SCH ×2 (08:51→22:05)
[2018-11-29] MEDS: NORCO 10/325 TAB PO SCH ×4 (08:52→22:05)
[2018-11-29] MEDS: ZYLOPRIM PO SCH (08:54)
[2018-11-29] MEDS: PLAVIX PO SCH (08:54)
[2018-11-29] MEDS: ZyrTEC TAB 10 MG PO SCH (08:54)
[2018-11-29] MEDS: TRADJENTA PO SCH (08:55)
[2018-11-29] MEDS: MILK OF MAGNESIA PO SCH ×2 (08:58→22:07)
[2018-11-29] MEDS: MIRALAX POWDER (1 DOSE 17 G) PO SCH (08:58)
[2018-11-29] MEDS ORDERED: PHARMACY CONSULT - DOSE _____ XX SCH (15:00)
--- NOTE | 2018-11-29 18:46 | PCM.PROG ---
Progress Note - Progress Note for Day of Date of Exam: 11/29/18 - Subjective Subjective: IS BEING TREATED FOR MULTIFOCAL PNEUMONIA AND RESPIRATORY FAILURE. TODAY, HE IS ALERT AND ORIENTED, SITTING UP IN BED ON MORNING ROUNDS. HE REPORTS IMPROVEMENT IN SYMPTOMS SINCE WE SAW HIM LAST. HE IS UTILIZING THE NASAL CANNULA AT THIS TIME. HE DENIES ANY COMPLAINTS. STAFF REPORTS THAT HE DOES DESATURATE WHEN NOT WEARING OXYGEN. ON EXAMINATION, HEART IS REGULAR IN RATE AND RHYTHM. BILATERAL LUNGS ARE NOTED WITH SCATTERED WHEEZING THROUGHOUT. ABDOMEN IS ROUND, SOFT, AND NON-TENDER. NORMAL BOWEL SOUNDS ARE NOTED IN ALL QUADRANTS. HIS VITALS THIS MORNING ARE: 98.1-78-24-93%166/71. LABS WERE OBTAINED. ABNORMAL LAB VALUES INCLUDE THE FOLLOWING: WBC 12.5, RBC 3.90, HGB 12.1, HCT 35.5, BUN 45, CREATININE 1.48, GLUCOSE 281, AST 10, TOTAL PROTEIN 6.2, ALBUMIN 2.1. A CHEST XRAY WAS OBTAINED AND REVEALED: PATCHY INTERSTITIAL AND AIRSPACE OPACITIES THROUGHOUT BOTH LUNGS, RIGHT GREATER THAN LEFT. SMALL BILATERAL PLEURAL EFFUSIONS SUSPECTED. AN ECHO WAS OBTAINED ON 11/26 AND REVEALED AN EJECTION FRACTION OF 45-50%, MODERATE HYPERTROPHY OF THE LEFT VENTRICLE, RSVP 16. HE IS CURRENTLY RECEIVING IV FLUIDS, IV FORTAZ, IV LEVAQUIN, RESPIRATORY TREATMENTS, AND SUPPLEMENTAL OXYGEN. WE WILL CONTINUE WITH CURRENT PLAN OF CARE TODAY. WE WILL SET HIM UP WITH HOME OXYGEN. OTHERWISE, WE PLAN TO FOLLOW UP WITH AM LABS AND CONTINUE TO MONITOR. - Past Medical Family Social History Past Med/Fam/Surg Hx: No changes since H&P Allergies: Allergies No Known Drug Allergies Allergy (Verified 05/30/17 14:17) - Review of Systems ROS: No change since H&P - Vital Signs and I&O's Vital Signs: Temperature 97.8 F Pulse Rate [Left Brachial] 72 Pulse Rate 78 Respiratory Rate 24 Blood Pressure [Left Arm] 135/67 Blood Pressure 143/72 O2 Sat by Pulse Oximetry 95 Intake and Output: Intake & Output 11/27/18 11/28/18 11/29/18 11/30/18 11:59 11:59 11:59 11:59 Intake Total 1739 / 1739 3435 / 3435 3684 / 3684 1838 / 1838 Output Total 1550 / 1550 2700 / 2700 2175 / 2175 1225 / 1225 Balance 189 / 189 735 / 735 1509 / 1509 613 / 613 - Physical Exam Oriented: Normal Eyes: Normal Ear: Normal Nose: Normal Throat: Normal Respiratory: Diminished, Rhonchi Cardiovascular: Tachycardia : Normal Auscultation: Bowel Sounds: Normal Palpation: Normal Tenderness: Normal Skin: Other (PVD changes to BLE) Musculoskeletal: Swelling (BLE) Psychiatric: Normal Mood Description: Calm Affect: Normal Speech Pattern: Clear, Appropriate - Laboratory and Diagnostics Result Diagrams: 11/29/18 03:58 11/29/18 03:58 Labs: 11/23/18 23:57 Blood Blood Culture - Final 11/23/18 23:54 Blood Blood Culture - Final 11/23/18 16:30 Blood Blood Culture - Final 11/23/18 16:20 Blood Blood Culture - Final 11/25/18 13:05 Sputum - Expectorated Sputum Sputum Culture - Final 11/25/18 13:05 Sputum - Expectorated Sputum - Final 11/24/18 11:02 Sputum - Expectorated Sputum Sputum Culture - Final 11/24/18 11:02 Sputum - Expectorated Sputum - Final Laboratory WBC 12.5 X10^3/uL (3.6-10.0) H 11/29/18 03:58 RBC 3.90 X10^6/uL (4.7-6.0) L 11/29/18 03:58 Hgb 12.1 g/dL (13.5-18.0) L 11/29/18 03:58 Hct 35.5 % (42.0-54.0) L 11/29/18 03:58 MCV 90.9 fL (80.0-100.0) 11/29/18 03:58 MCH 30.9 pg (27.0-34.0) 11/29/18 03:58 MCHC 34.0 g/dL (33.0-35.0) 11/29/18 03:58 RDW 14.6 % (11.6-16.5) 11/29/18 03:58 Plt Count 306 X10^3/uL (150.0-450.0) 11/29/18 03:58 Plt Count Comment Adequate (ADEQUATE) 11/26/18 05:36 MPV 7.8 fL (7.4-11.0) 11/29/18 03:58 Neut % (Auto) 92.4 % (42.0-75.0) H 11/29/18 03:58 Lymph % (Auto) 4.9 % (21.0-51.0) L 11/29/18 03:58 [place] % (Auto) 2.6 % (0.0-13.0) 11/29/18 03:58 Eos % (Auto) 0.0 % (0.9-2.9) L 11/29/18 03:58 Baso % (Auto) 0.1 % (0.2-1.0) L 11/29/18 03:58 Neut # (Auto) 11.5 x10^3/uL (2.2-4.8) H 11/29/18 03:58 Lymph # (Auto) 0.6 X10^3/uL (1.3-2.9) L 11/29/18 03:58 [place] # (Auto) 0.3 x10^3/uL (0.3-0.8) 11/29/18 03:58 Eos # (Auto) 0.0 x10^3/uL (0.0-0.2) 11/29/18 03:58 Baso # (Auto) 0.0 X10^3/uL (0.0-0.1) 11/29/18 03:58 Absolute Nucleated RBC 0.0 /100WBC 11/29/18 03:58 Total Counted 100 11/26/18 05:36 Neutrophils % (Manual) 92 % (39-76) H 11/26/18 05:36 Band Neutrophils % 4 % (0-10) 11/26/18 05:36 Lymphocytes % (Manual) 2 % (13-43) L 11/26/18 05:36 Monocytes % (Manual) 2 % (4-9) L 11/26/18 05:36 Eosinophils % (Manual) 1 % (0-6) 11/25/18 05:25 Plt Morphology Comment Normal (NORMAL) 11/26/18 05:36 RBC Morphology Normal (NORMAL) 11/26/18 05:36 ESR 102 MM/HOUR (0-15) H 11/25/18 05:25 INR Target Range - 11/23/18 15:05 INR 1.26 (0.8-1.3) 11/23/18 15:05 APTT 33.1 SECONDS (22.9-36.5) 11/23/18 15:05 PTT Comment - 11/23/18 15:05 D-Dimer 3250 ng/mL (0-400) H* 11/23/18 15:05 Sample Site Lr 11/27/18 08:50 ABG pH 7.440 (7.35-7.45) 11/27/18 08:50 ABG pCO2 39.0 mmHg (35.0-45.0) 11/27/18 08:50 ABG pO2 60.0 mmHg (80.0-100.0) L 11/27/18 08:50 ABG HCO3 26.5 mmol/L (22-26) H 11/27/18 08:50 ABG O2 Saturation 92.0 % (90-100) 11/27/18 08:50 ABG Base Excess 2.2 mmol/L (-2.0-2.0) H 11/27/18 08:50 Krzysztof Test Pos 11/27/18 08:50 A-a Gradient 148.0 mmHg 11/27/18 08:50 FiO2 36.0 11/27/18 08:50 Blood Gas Comments Nathalie well cb 11/27/18 08:50 Sodium 140 mmol/L (136-145) 11/29/18 03:58 Corrected Sodium 144 mmol/L (136-145) 11/29/18 03:58 Potassium 4.7 mmol/L (3.5-5.1) 11/29/18 03:58 Chloride 105 mmol/L (98-107) 11/29/18 03:58 Carbon Dioxide 28.5 mmol/L (21-32) 11/29/18 03:58 BUN 45 mg/dL (7-18) H 11/29/18 03:58 Creatinine 1.48 mg/dL (0.70-1.30) H 11/29/18 03:58 Est GFR (MDRD) Af Amer > 60 (>60) 11/29/18 03:58 Est GFR (MDRD) Non-Af 50 (>60) L 11/29/18 03:58 Glucose 281 mg/dL (65-99) H 11/29/18 03:58 Lactic Acid 2.4 mmol/L (0.4-2.0) H 11/23/18 16:20 Calcium 9.2 mg/dL (8.5-10.1) 11/29/18 03:58 Corrected Calcium 10.7 mg/dL (8.5-10.1) H 11/29/18 03:58 Total Bilirubin 0.30 mg/dL (0.2-1.0) 11/29/18 03:58 AST 10 Units/L (15-37) L 11/29/18 03:58 ALT 14 Units/L (12-78) 11/29/18 03:58 Alkaline Phosphatase 90 Units/L (46-116) 11/29/18 03:58 Creatine Kinase 95 Units/L (39-308) 11/24/18 08:40 CK-MB (CK-2) 1.7 ng/mL (0-4.0) 11/24/18 08:40 CK/CKMB % Calc 1.8 % (<4) 11/24/18 08:40 Troponin I 0.03 ng/mL (0-1.5) 11/24/18 08:40 B-Natriuretic Peptide 165 pg/mL (0-79) H 11/23/18 15:05 Total Protein 6.2 g/dL (6.4-8.2) L 11/29/18 03:58 Albumin 2.1 g/dL (3.4-5.0) L 11/29/18 03:58 Globulin 4.1 g/dL (2.5-4.5) 11/29/18 03:58 Albumin/Globulin Ratio 0.5 Ratio (1.1-2.1) L 11/29/18 03:58 Specimen Type Random urine 11/24/18 19:15 Urine Color Yellow (YELLOW) 11/24/18 19:15 Urine Appearance Slightly hazy (CLEAR) 11/24/18 19:15 Urine pH 5.0 (5.0 - 8.0) 11/24/18 19:15 Ur Specific Peerless 1.020 (1.000-1.030) 11/24/18 19:15 Urine Protein 2+ (NEGATIVE) 11/24/18 19:15 Urine Glucose (UA) Negative (NEGATIVE) 11/24/18 19:15 Urine Ketones Negative (NEGATIVE) 11/24/18 19:15 Urine Occult Blood 2+ (NEGATIVE) 11/24/18 19:15 Urine Nitrite Negative (NEGATIVE) 11/24/18 19:15 Urine Bilirubin Negative (NEGATIVE) 11/24/18 19:15 Urine Urobilinogen Normal (NORMAL) 11/24/18 19:15 Ur Leukocyte Esterase Negative (NEGATIVE) 11/24/18 19:15 Urine RBC 5-10 /HPF (NONE SEEN) 11/24/18 19:15 Urine WBC 0-2 /HPF (NONE SEEN) 11/24/18 19:15 Ur Squamous Epith Cells Few /HPF (NEGATIVE) 11/24/18 19:15 Amorphous Sediment 2+ /HPF (NEGATIVE) 11/24/18 19:15 Urine Bacteria Trace /HPF (NEGATIVE) 11/24/18 19:15 Hyaline Casts Few /LPF (NEGATIVE) 11/24/18 19:15 Ur Culture Indicated? No/not indicated 11/24/18 19:15 - Plan (1) Multifocal pneumonia Status: Acute Plan: IV FORTAZ, IV LEVAQUIN, RESPIRATORY TREATMENTS, SUPPLEMENTAL OXYGEN, CONTINUE TO MONITOR (2) Acute respiratory failure Status: Acute Qualifiers: Respiratory failure complication: hypoxia and hypercapnia Qualified Code(s): J96.01 - Acute respiratory failure with hypoxia; J96.02 - Acute respiratory failure with hypercapnia Plan: BIPAP NEEDED, SUPPLEMENTAL OXYGEN, CONTINUE TO MONITOR (3) Congestive heart failure (CHF) Status: Acute Qualifiers: Heart failure type: unspecified Heart failure chronicity: acute on chronic Qualified Code(s): I50.9 - Heart failure, unspecified Plan: SUPPLEMENTAL OXYGEN, BIPAP NEEDED, CONTINUE NORVASC, CONTINUE TO MONITOR
[2018-11-29] MEDS: ANTIVERT TAB 25 MG PO SCH (22:04)
[2018-11-29] MEDS: ZOCOR TAB 20 MG PO SCH (22:04)
[2018-11-29] MEDS: NORVASC TAB 5 MG PO SCH (22:06)
[2018-11-29] MEDS: TUSSIONEX PENNKINETIC SUSP PO PRN (22:07)
[2018-11-30] MEDS: XOPENEX 1.25 MG/3 ML NEBULE NEB SCH ×3 (00:56→12:25)
[2018-11-30] MEDS: FORTAZ or TAZICEF VIAL INJ IVP SCH ×2 (05:43→14:07)
[2018-11-30] MEDS: HumuLIN R SUBCUT PRN (05:47)
[2018-11-30] MEDS: LR 1000 ML IV 1,000 ML IV SCH (05:54)
[2018-11-30 05:56] LABS: BASOPHILS % (AUTO) 0.2 % (0.2-1.0); EOSINOPHILS # (AUTO) 0.1 x10^3/uL (0.0-0.2); EOSINOPHILS % (AUTO) 0.5 % (0.9-2.9); HEMATOCRIT 36.1 % (42.0-54.0); HEMOGLOBIN 12.3 g/dL (13.5-18.0); LYMPHOCYTES # (AUTO) 1.1 X10^3/uL (1.3-2.9); LYMPHOCYTES % (AUTO) 10.1 % (21.0-51.0); MEAN CORPUSCULAR VOLUME 91.1 fL (80.0-100.0); MEAN PLATELET VOLUME 7.6 fL (7.4-11.0); MONOCYTES # (AUTO) 0.4 x10^3/uL (0.3-0.8); MONOCYTES % (AUTO) 3.5 % (0.0-13.0); NEUTROPHILS # (AUTO) 9.7 x10^3/uL (2.2-4.8); NEUTROPHILS % (AUTO) 85.7 % (42.0-75.0); PLATELET COUNT 276 X10^3/uL (150.0-450.0); RED BLOOD COUNT 3.96 X10^6/uL (4.7-6.0); RED CELL DISTRIBUTION WIDTH 14.9 % (11.6-16.5); WHITE BLOOD COUNT 11.3 X10^3/uL (3.6-10.0)
[2018-11-30] MEDS: GLUCOTROL XL PO SCH (06:01)
[2018-11-30] MEDS: SYNTHROID 100 mcg TAB PO SCH (06:01)
[2018-11-30 06:06] LABS: ALANINE AMINOTRANSFERASE 16 Units/L (12-78); ALBUMIN 2.1 g/dL (3.4-5.0); ALKALINE PHOSPHATASE 89 Units/L (46-116); ASPARTATE AMINO TRANSFERASE 9 Units/L (15-37); BLOOD UREA NITROGEN 36 mg/dL (7-18); CARBON DIOXIDE 27.1 mmol/L (21-32); CHLORIDE 106 mmol/L (98-107); COR CA(FOR HYPOALB) 10.5 mg/dL (8.5-10.1); COR NA(FOR HYPERGLY) 142 mmol/L (136-145); CREATININE 1.38 mg/dL (0.70-1.30); SODIUM 140 mmol/L (136-145); TOTAL PROTEIN 5.8 g/dL (6.4-8.2); eGFR NON BLACK RACES 54 (>60)
[2018-11-30 06:37] LABS: BAND NEUTROPHILS % 3 % (0-10); PLATELET MORPHOLOGY COMMENT NORMAL (NORMAL)
[2018-11-30] MEDS ORDERED: GLUCOPHAGE ONE (07:57)
[2018-11-30] MEDS: PriLOSEC PO SCH (08:01)
[2018-11-30] MEDS: ROBITUSSIN DM PO SCH ×2 (08:01→14:06)
[2018-11-30] MEDS: ZyrTEC TAB 10 MG PO SCH (08:02)
[2018-11-30] MEDS: PLAVIX PO SCH (08:02)
[2018-11-30] MEDS: ZYLOPRIM PO SCH (08:02)
[2018-11-30] MEDS: MOBIC TAB 15 MG PO SCH (08:02)
[2018-11-30] MEDS: GLUCOPHAGE PO SCH (08:02)
[2018-11-30] MEDS: NORCO 10/325 TAB PO SCH ×2 (08:02→14:06)
[2018-11-30] MEDS: JANUVIA PO SCH (08:02)
[2018-11-30] MEDS: ECOTRIN TAB 325 MG PO SCH (08:02)
[2018-11-30] MEDS: TRADJENTA PO SCH (08:03)
[2018-11-30] MEDS: MILK OF MAGNESIA PO SCH (08:28)
[2018-11-30] MEDS: MIRALAX POWDER (1 DOSE 17 G) PO SCH (08:28)
[2018-11-30 14:03] VITALS: BP 136/62
[2018-11-30] MEDS ORDERED: SNACK - Diabetic Appropriate PO SCH (20:00)
[2018-12-01 15:10] LABS: ALBUMIN (SPEP) 2.44 g/dL; ALPHA-1 (SPEP) 0.77 g/dL
[2018-12-01 15:11] LABS: ALPHA-2 (SPEP) 1.13 g/dL
== END 2018-11-30 14:45 | disposition home or self-care (01) | DRG 193 ==
LOC: ER 14:58 → ICU 18:41
PROVIDERS: ADMIT Internal Medicine; ATTEND Internal Medicine
DX: D72.828 Other elevated white blood cell count; E66.01 Morbid (severe) obesity due to excess calories; J96.01 Acute respiratory failure with hypoxia; D72.825 Bandemia; J18.8 Other pneumonia, unspecified organism; I87.2 Venous insufficiency (chronic) (peripheral); R60.0 Localized edema; I11.0 Hypertensive heart disease with heart failure; E11.65 Type 2 diabetes mellitus with hyperglycemia; R53.83 Other fatigue; E78.2 Mixed hyperlipidemia; R07.89 Other chest pain; I50.22 Chronic systolic (congestive) heart failure; J90 Pleural effusion, not elsewhere classified
CPT/HCPCS: 36415; 36600; 71010; 71020; 71045; 71046; 71250; 80048; 80053; 81001; 82550; 82553; 82803; 83605; 83880; 84165; 84166; 84484; 85025; 85378; 85610; 85652; 85730; 86335; 87040; 87070; 87205; 93005; 93306; 94640; 94660; 94669; 94760; 96365; 96367; 96374; 96375; 99285; A4222; A4618; A7030; J0713; J1160; J1815; J1956; J2270; J2920; J3370; J3490; J7030; J7050; J7120; J7620; S5010

== ENCOUNTER 2020-02-07 10:06 | Inpatient (IN) ==
[2020-02-07 11:53] LABS: BASOPHILS % (AUTO) 0.5 % (0.2-1.0); EOSINOPHILS # (AUTO) 0.1 x10^3/uL (0.0-0.2); EOSINOPHILS % (AUTO) 0.9 % (0.9-2.9); HEMATOCRIT 41.3 % (42.0-54.0); LYMPHOCYTES # (AUTO) 1.2 X10^3/uL (1.3-2.9); LYMPHOCYTES % (AUTO) 11.6 % (21.0-51.0); MEAN CORPUSCULAR HEMOGLOBIN 30.3 pg (27.0-34.0); MEAN CORPUSCULAR HGB CONC 33.8 g/dL (33.0-35.0); MEAN CORPUSCULAR VOLUME 89.6 fL (80.0-100.0); MEAN PLATELET VOLUME 7.6 fL (7.4-11.0); MONOCYTES # (AUTO) 0.6 x10^3/uL (0.3-0.8); MONOCYTES % (AUTO) 5.6 % (0.0-13.0); NEUTROPHILS # (AUTO) 8.7 x10^3/uL (2.2-4.8); NEUTROPHILS % (AUTO) 81.4 % (42.0-75.0); PLATELET COUNT 250 X10^3/uL (150.0-450.0); RED BLOOD COUNT 4.61 X10^6/uL (4.7-6.0); RED CELL DISTRIBUTION WIDTH 14.5 % (11.6-16.5); WHITE BLOOD COUNT 10.6 X10^3/uL (3.6-10.0)
[2020-02-07] MEDS: ZOSYN VIAL 3.375 GRAMS 3.375 G in NS 100 ML IV + SPIKE MINIBAG* 100 ML IV SCH ×3 (12:07→21:04)
[2020-02-07 12:08] LABS: ALANINE AMINOTRANSFERASE 15 Units/L (12-78); ALBUMIN 3.6 g/dL (3.4-5.0); ALKALINE PHOSPHATASE 128 Units/L (46-116); ASPARTATE AMINO TRANSFERASE 16 Units/L (15-37); BLOOD UREA NITROGEN 25 mg/dL (7-18); CALCIUM 9.7 mg/dL (8.5-10.1); CARBON DIOXIDE 25.6 mmol/L (21-32); CHLORIDE 106 mmol/L (98-107); CREATININE 1.55 mg/dL (0.70-1.30); SODIUM 142 mmol/L (136-145); TOTAL PROTEIN 8.1 g/dL (6.4-8.2); eGFR NON BLACK RACES 47 (>60)
[2020-02-07] MEDS: NS 1000 ML 1,000 ML IV SCH (12:08)
[2020-02-07] MEDS ORDERED: AFLURIA II4 or FLUARIX II4 IM ONE (13:05)
[2020-02-07] MEDS ORDERED: PREVNAR 13 IM ONE (13:05)
[2020-02-07] MEDS ORDERED: DUONEB 0.5 MG/3 MG (3 mL) NEB ONE (13:14)
[2020-02-07] MEDS: DUONEB 0.5 MG/3 MG (3 mL) NEB SCH ×2 (13:18→21:24)
[2020-02-07 13:40] LABS: ERYTHROCYTE SEDIMENTATION RATE 23 MM/HOUR (0-15)
[2020-02-07] MEDS: LOVENOX INJ 40 MG SYR SC SCH (16:50)
[2020-02-07] MEDS: NORCO 5/325 MG TAB PO PRN (18:42)
[2020-02-08] MEDS: NORCO 5/325 MG TAB PO PRN (02:57)
[2020-02-08] MEDS: NS 1000 ML 1,000 ML IV SCH ×2 (02:58→19:19)
[2020-02-08] MEDS: ZOSYN VIAL 3.375 GRAMS 3.375 G in NS 100 ML IV + SPIKE MINIBAG* 100 ML IV SCH ×3 (05:06→21:26)
[2020-02-08] MEDS: DUONEB 0.5 MG/3 MG (3 mL) NEB SCH ×4 (05:44→22:00)
[2020-02-08 06:47] LABS: BASOPHILS % (AUTO) 0.4 % (0.2-1.0); EOSINOPHILS # (AUTO) 0.1 x10^3/uL (0.0-0.2); EOSINOPHILS % (AUTO) 1.5 % (0.9-2.9); HEMATOCRIT 38.5 % (42.0-54.0); HEMOGLOBIN 12.9 g/dL (13.5-18.0); LYMPHOCYTES # (AUTO) 1.4 X10^3/uL (1.3-2.9); LYMPHOCYTES % (AUTO) 16.8 % (21.0-51.0); MEAN CORPUSCULAR HEMOGLOBIN 30.1 pg (27.0-34.0); MEAN CORPUSCULAR HGB CONC 33.4 g/dL (33.0-35.0); MEAN CORPUSCULAR VOLUME 90.2 fL (80.0-100.0); MEAN PLATELET VOLUME 7.7 fL (7.4-11.0); MONOCYTES # (AUTO) 0.5 x10^3/uL (0.3-0.8); MONOCYTES % (AUTO) 6.1 % (0.0-13.0); NEUTROPHILS # (AUTO) 6.3 x10^3/uL (2.2-4.8); NEUTROPHILS % (AUTO) 75.2 % (42.0-75.0); PLATELET COUNT 204 X10^3/uL (150.0-450.0); RED BLOOD COUNT 4.27 X10^6/uL (4.7-6.0); RED CELL DISTRIBUTION WIDTH 14.4 % (11.6-16.5); WHITE BLOOD COUNT 8.3 X10^3/uL (3.6-10.0)
[2020-02-08 06:53] LABS: ALANINE AMINOTRANSFERASE 16 Units/L (12-78); ALBUMIN 3.1 g/dL (3.4-5.0); ALKALINE PHOSPHATASE 111 Units/L (46-116); ASPARTATE AMINO TRANSFERASE 13 Units/L (15-37); BLOOD UREA NITROGEN 20 mg/dL (7-18); CALCIUM 9.2 mg/dL (8.5-10.1); CARBON DIOXIDE 28.4 mmol/L (21-32); CHLORIDE 106 mmol/L (98-107); COR CA(FOR HYPOALB) 9.9 mg/dL (8.5-10.1); COR NA(FOR HYPERGLY) 143 mmol/L (136-145); CREATININE 1.38 mg/dL (0.70-1.30); SODIUM 142 mmol/L (136-145); TOTAL PROTEIN 7.2 g/dL (6.4-8.2); eGFR NON BLACK RACES 54 (>60)
[2020-02-08] MEDS: LOVENOX INJ 40 MG SYR SC SCH (09:02)
[2020-02-08] MEDS ORDERED: PHARMACY CONSULT - VANCOMYCIN XX SCH (11:00)
[2020-02-08] MEDS ORDERED: BENTYL CAP 10 MG PO PRN (11:02)
[2020-02-08] MEDS ORDERED: ZOFRAN TAB 4 MG PO PRN (11:02)
[2020-02-08] MEDS: ZYLOPRIM PO SCH (12:00)
[2020-02-08] MEDS: VANCOMYCIN HCL 500 MG, VANCOMYCIN HCL 1 G in D5W 250 ML IV 250 ML IV SCH ×2 (12:00→21:28)
--- NOTE | 2020-02-08 12:04 | DR.H&P ---
H&P - History & Physical for Day of: H&P Date: 02/07/20 - Chief Complaint Chief Complaint: LOWER EXTREMITY SWELLING, REDNESS, WOUND - History of Present Illness History of Present Illness: IS A 69 YEAR OLD PATIENT OF OURS WHO HAS BEEN FOLLOWED IN THE OFFICE DUE TO SEVERE BILATERAL LOWER EXTREMITY EDEMA AND CELLULITIS OF THE LEFT LOWER EXTREMITY. SYMPTOMS STARTED ABOUT THREE WEEKS PRIOR AND HAVE PROGRESSIVELY GOTTEN WORSE. HE HAS TAKEN A TWO WEEK COURSE OF CIPRO 500MG PO BID WITHOUT SIGNIFICANT IMPROVEMENT IN SYMPTOMS. EXAMINATION REVEALS 2+ PITTING EDEMA TO THE LOWER EXTREMITIES. THERE ARE SCATTERED, SCABBED OVER WOUNDS TO THE LEFT LOWER LEG WELL A SMALL OPEN WOUND TO THE LEFT LATERAL LEG. THERE IS SEROUS DRAINAGE FROM OPEN WOUND. WOUND IS APPROXIMATELY 4CM X 4.5CM. HE DENIES PAIN. HIS PMH INCLUDES: HYPERLIPIDEMIA, HTN, PNEUMONIA, SLEEP APNEA, PERIPHERAL EDEMA, OBESITY, GERD, DIABETES II, DEPRESSION, AND CATARACT SURGERY. ON ARRIVAL TO THE HOSPITAL, VITALS WERE 99.1-84-20-94%-192/81. LABS WERE OBTAINED. ABNORMAL LAB VALUES INCLUDE THE FOLLOWING: WBC 10.6, RBC 4.61, HCT 41.3, BUN 25, CREATININE 1.55, GLUCOSE 110, ALK PHOS 128, CRP 13.60. BLOOD CULTURES AND A WOUND CULTURE WERE SET UP. WE STARTED HIM ON NORMAL SALINE AT 50 ML/HR, ZOSYN 3.375G IV TID, HUMULIN R SLIDING SCALE, LOVENOX 40MG SC DAILY, LASIX 40MG IV BID, AND HIS HOME MEDICATIONS OF ZYLOPRIM, NORVASC, PLAVIX, BENTYL, GLIPIZIDE, COZAAR, MOBIC, PRILOSEC, ZOFRAN, ZOCOR, AND ZANAFLEX WERE RESUMED. WE WILL OBTAIN A BILATERAL LOWER EXTREMITY VENOUS DOPPLER TO RULE OUT DVT. OTHERWISE, WE PLAN TO FOLLOW UP WITH AM LABS AND WOUND CARE AND CONTINUE TO MONITOR. TIME SPENT ON CLINICAL ASSESSMENT, REVIEWING LABS AND IMAGING, DECISION MAKING, AND DOCUMENTATION GREATER THAN 74 MINUTES. - Past Medical History Past Medical History: Alzheimers, Arthritis, Diabetes, Gout, Hypertension - Family History Family Medical History: Diabetes Mellitus, Cancer, Heart Failure, Hypertension - Social History Does patient currently use any type of tobacco product: No Have you used tobacco products in the last 12 months: No Type of Tobacco Use: None Alcohol Use: None - Medications Home Medications: No Known Drug Allergies Allergy (Verified 05/30/17 14:17) CONTINUE taking the following medications dicyclomine 20 mg PO QID 02/07/20 [History] hydrocodone-acetaminophen 1 tab PO QID PRN 02/07/20 [History] ondansetron HCl 4 mg PO TID 02/07/20 [History] tizanidine 4 mg PO HS 02/07/20 [History] - Review of Systems Constitutional: Weakness Eyes: No Symptoms Reported ENT: No Symptoms Reported Respiratory: No Symptoms Reported Cardiovascular: Edema (BLE 2+ PITTING EDEMA ) Gastrointestinal: No Symptoms Reported Genitourinary: No Symptoms Reported Musculoskeletal: No Symptoms Reported Skin: See HPI, Wound, Other (ERYTHEMA OF BLE, WOUND TO LLE) Neurological: Weakness - Physical Exam Vital Signs: Temperature 98.6 F Pulse Rate [Left Brachial] 75 Pulse Rate 73 Respiratory Rate 20 Blood Pressure [Left Arm] 153/65 O2 Sat by Pulse Oximetry 93 Oriented: Normal Eyes: Normal Ear: Normal Nose: Normal Throat: Normal Respiratory: Diminished Throughout Cardiovascular: Normal : Normal Auscultation: Bowel Sounds: Normal Palpation: Normal Tenderness: Normal Skin: Red, Tender, Hot, Wound Musculoskeletal: Right, Left, Leg, Swelling Psychiatric: Normal Mood Description: Calm Affect: Normal Speech Pattern: Clear - Assessment/Plan (1) Bilateral lower leg cellulitis Status: Acute Plan: ADMIT, NORMAL SALINE AT 50 ML/HR, ZOSYN 3.375G IV TID, HUMULIN R SLIDING SCALE, LOVENOX 40MG SC DAILY, LASIX 40MG IV BID, AND HIS HOME MEDICATIONS OF ZYLOPRIM, NORVASC, PLAVIX, BENTYL, GLIPIZIDE, COZAAR, MOBIC, PRILOSEC, ZOFRAN, ZOCOR, AND ZANAFLEX WERE RESUMED. OBTAIN VENOUS DOPPLER TO RULE OUT DVT, WOUND CARE (2) Peripheral edema Status: Acute - Allergies Allergies/Adverse Reactions: Allergies Allergy/AdvReac Type Severity Reaction Status Date / Time No Known Drug Allergies Allergy Verified 05/30/17 14:17
--- NOTE | 2020-02-08 12:31 | VAS ---
HISTORY:Bilateral leg edemaStudy: Venous DopplerComparison:NoneTECHNIQUE: Multiple matthew scale and color flow Doppler images of the deep venous system were obtained of the bilateral lower extremitiesFINDINGS:There is normal respiratory phasicity, compression and augmentation of the extremity veins without evidence of acute DVT.Incidental note of left groin lymph node measuring 3.8 by 1.1 centimeter.IMPRESSION:1. Negative for DVT.2. Incidental note of enlarged lymph node in the left groin measuring 3.8 x 1.1 centimeters, correlate clinically.Electronically signed by: DAQUAN SHARPE (Feb 08, 2020 12:31:33)
[2020-02-08] MEDS: GLUCOTROL XL 24-HR PO SCH (12:49)
[2020-02-08] MEDS: PLAVIX PO SCH (12:49)
[2020-02-08] MEDS: MOBIC TAB 15 MG PO SCH (13:00)
[2020-02-08] MEDS: PriLOSEC PO SCH (13:00)
[2020-02-08] MEDS: COZAAR PO SCH (13:00)
[2020-02-08] MEDS: SYNTHROID 100 mcg TAB PO SCH (14:27)
[2020-02-08] MEDS: LASIX IVP SCH (17:56)
[2020-02-08] MEDS ORDERED: NORVASC TAB 5 MG ONE (19:44)
[2020-02-08] MEDS ORDERED: ZOCOR TAB 40 MG PO ONE (19:45)
[2020-02-08] MEDS ORDERED: ZANAFLEX ONE (19:45)
[2020-02-08] MEDS: ZOCOR TAB 40 MG PO SCH (21:27)
[2020-02-08] MEDS: NORCO 10/325 TAB PO PRN (21:27)
[2020-02-08] MEDS: NORVASC TAB 5 MG PO SCH (21:27)
[2020-02-08] MEDS: ZANAFLEX PO SCH (21:27)
--- NOTE | 2020-02-08 22:12 | PCM.PROG ---
Progress Note - Progress Note for Day of Date of Exam: 02/08/20 - Subjective Subjective: IS BEING TREATED FOR BILATERAL LOWER EXTREMITY CELLULITIS AND SEVERE PERIPHERAL EDEMA. TODAY, HE IS ALERT AND ORIENTED, LYING IN BED ON MORNING ROUNDS. HE CONTINUES WITH 2+ PITTING EDEMA AND ERYTHEMA TO BILATERAL LOWER EXTREMITIES. LEFT LEG IS NOTED WITH A DRESSING TO THE OPEN WOUND. DRESSING IS DRY AND INTACT AT THIS TIME. HIS VITALS THIS MORNING ARE: 98.6-75-20-93%-153/65. LABS WERE OBTAINED. ABNORMAL LAB VALUES INCLUDE THE FOLLOWING: RBC 4.27, HGB 12.9, HCT 38.5, BUN 20, CREATININE 1.38, AST 13, ALBUMIN 3.1. BLOOD AND WOUND CULTURES ARE PENDING. A LOWER EXTREMITY VENOUS DO PPLER WAS OBTAINED AND IS NEGATIVE FOR DVT. HE IS CURRENTLY RECEIVING NORMAL SALINE AT 50 ML/HR, ZOSYN 3.375G IV TID, HUMULIN R SLIDING SCALE, LOVENOX 40MG SC DAILY, LASIX 40MG IV BID, AND HIS HOME MEDICATIONS OF ZYLOPRIM, NORVASC, PLAVIX, BENTYL, GLIPIZIDE, COZAAR, MOBIC, PRILOSEC, ZOFRAN, ZOCOR, AND ZANAFLEX WERE RESUMED. TODAY, WE WILL ADD VANCOMYCIN 1.5G IV Q12H. OTHERWISE, WE WILL CONTINUE WITH WOUND CARE AND CURRENT PLAN OF CARE TODAY. WE PLAN TO FOLLOW UP WITH AM LABS AND CONTINUE TO MONITOR. - Past Medical Family Social History Past Med/Fam/Surg Hx: No changes since H&P Allergies: Allergies No Known Drug Allergies Allergy (Verified 05/30/17 14:17) - Review of Systems ROS: No change since H&P - Vital Signs and I&O's Vital Signs: Temperature 99.6 F Pulse Rate [Left Brachial] 81 Pulse Rate 73 Respiratory Rate 21 Blood Pressure [Left Arm] 159/71 O2 Sat by Pulse Oximetry 93 Intake and Output: Intake & Output 02/06/20 02/07/20 02/08/20 02/09/20 11:59 11:59 11:59 11:59 Intake Total 1200 / 1200 920 / 920 Output Total 1400 / 1400 900 / 900 Balance -200 / -200 - Physical Exam Oriented: Normal Eyes: Normal Ear: Normal Nose: Normal Throat: Normal Respiratory: Generalized, Diminished Cardiovascular: Normal : Normal Auscultation: Bowel Sounds: Normal Palpation: Normal Tenderness: Normal Skin: Red, Tender, Hot, Wound Musculoskeletal: Right, Left, Leg, Swelling (2+ PITTING EDEMA BLE) Psychiatric: Normal Mood Description: Calm Affect: Normal Speech Pattern: Clear - Laboratory and Diagnostics Result Diagrams: 02/08/20 05:52 02/08/20 05:52 Labs: Laboratory WBC 8.3 X10^3/uL (3.6-10.0) 02/08/20 05:52 RBC 4.27 X10^6/uL (4.7-6.0) L 02/08/20 05:52 Hgb 12.9 g/dL (13.5-18.0) L 02/08/20 05:52 Hct 38.5 % (42.0-54.0) L 02/08/20 05:52 MCV 90.2 fL (80.0-100.0) 02/08/20 05:52 MCH 30.1 pg (27.0-34.0) 02/08/20 05:52 MCHC 33.4 g/dL (33.0-35.0) 02/08/20 05:52 RDW 14.4 % (11.6-16.5) 02/08/20 05:52 Plt Count 204 X10^3/uL (150.0-450.0) 02/08/20 05:52 MPV 7.7 fL (7.4-11.0) 02/08/20 05:52 Neut % (Auto) 75.2 % (42.0-75.0) H 02/08/20 05:52 Lymph % (Auto) 16.8 % (21.0-51.0) L 02/08/20 05:52 [place] % (Auto) 6.1 % (0.0-13.0) 02/08/20 05:52 Eos % (Auto) 1.5 % (0.9-2.9) 02/08/20 05:52 Baso % (Auto) 0.4 % (0.2-1.0) 02/08/20 05:52 Neut # (Auto) 6.3 x10^3/uL (2.2-4.8) H 02/08/20 05:52 Lymph # (Auto) 1.4 X10^3/uL (1.3-2.9) 02/08/20 05:52 [place] # (Auto) 0.5 x10^3/uL (0.3-0.8) 02/08/20 05:52 Eos # (Auto) 0.1 x10^3/uL (0.0-0.2) 02/08/20 05:52 Baso # (Auto) 0.0 X10^3/uL (0.0-0.1) 02/08/20 05:52 Absolute Nucleated RBC 0.0 /100WBC 02/08/20 05:52 ESR 23 MM/HOUR (0-15) H 02/07/20 10:57 Sodium 142 mmol/L (136-145) 02/08/20 05:52 Corrected Sodium 143 mmol/L (136-145) 02/08/20 05:52 Potassium 4.4 mmol/L (3.5-5.1) 02/08/20 05:52 Chloride 106 mmol/L (98-107) 02/08/20 05:52 Carbon Dioxide 28.4 mmol/L (21-32) 02/08/20 05:52 BUN 20 mg/dL (7-18) H 02/08/20 05:52 Creatinine 1.38 mg/dL (0.70-1.30) H 02/08/20 05:52 Est GFR (MDRD) Af Amer > 60 (>60) 02/08/20 05:52 Est GFR (MDRD) Non-Af 54 (>60) L 02/08/20 05:52 Glucose 123 mg/dL (65-99) H 02/08/20 05:52 POC Glucose (mg/dL) 98 mg/dL (65-99) 02/08/20 21:22 Calcium 9.2 mg/dL (8.5-10.1) 02/08/20 05:52 Corrected Calcium 9.9 mg/dL (8.5-10.1) 02/08/20 05:52 Total Bilirubin 0.40 mg/dL (0.2-1.0) 02/08/20 05:52 AST 13 Units/L (15-37) L 02/08/20 05:52 ALT 16 Units/L (12-78) 02/08/20 05:52 Alkaline Phosphatase 111 Units/L (46-116) 02/08/20 05:52 C-Reactive Protein 13.60 mg/L (0-3.0) H 02/07/20 10:57 Total Protein 7.2 g/dL (6.4-8.2) 02/08/20 05:52 Albumin 3.1 g/dL (3.4-5.0) L 02/08/20 05:52 Globulin 4.1 g/dL (2.5-4.5) 02/08/20 05:52 Albumin/Globulin Ratio 0.8 Ratio (1.1-2.1) L 02/08/20 05:52 - Plan (1) Bilateral lower leg cellulitis Status: Acute Plan: NORMAL SALINE AT 50 ML/HR, VANCOMYCIN 1.5G IV Q12H, ZOSYN 3.375G IV TID, HUMULIN R SLIDING SCALE, LOVENOX 40MG SC DAILY, LASIX 40MG IV BID, AND HIS HOME MEDICATIONS OF ZYLOPRIM, NORVASC, PLAVIX, BENTYL, GLIPIZIDE, COZAAR, MOBIC, PRILOSEC, ZOFRAN, ZOCOR, AND ZANAFLEX WERE RESUMED. 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
[2020-02-09] MEDS: NS 1000 ML 1,000 ML IV SCH ×2 (01:07→20:39)
[2020-02-09] MEDS: ZOSYN VIAL 3.375 GRAMS 3.375 G in NS 100 ML IV + SPIKE MINIBAG* 100 ML IV SCH ×3 (05:16→22:13)
[2020-02-09] MEDS ORDERED: MAGNESIUM SULFATE 1 GRAM/100 mL PREMIX 1 GM/100 ML BAG IV PRN (05:39)
[2020-02-09] MEDS: DUONEB 0.5 MG/3 MG (3 mL) NEB SCH ×3 (06:00→22:15)
[2020-02-09 06:32] LABS: BASOPHILS % (AUTO) 0.5 % (0.2-1.0); EOSINOPHILS # (AUTO) 0.2 x10^3/uL (0.0-0.2); EOSINOPHILS % (AUTO) 2.5 % (0.9-2.9); HEMATOCRIT 37.6 % (42.0-54.0); HEMOGLOBIN 12.9 g/dL (13.5-18.0); LYMPHOCYTES # (AUTO) 1.6 X10^3/uL (1.3-2.9); LYMPHOCYTES % (AUTO) 21.4 % (21.0-51.0); MEAN CORPUSCULAR HEMOGLOBIN 30.5 pg (27.0-34.0); MEAN CORPUSCULAR HGB CONC 34.2 g/dL (33.0-35.0); MEAN CORPUSCULAR VOLUME 89.3 fL (80.0-100.0); MEAN PLATELET VOLUME 7.5 fL (7.4-11.0); MONOCYTES # (AUTO) 0.5 x10^3/uL (0.3-0.8); MONOCYTES % (AUTO) 7.1 % (0.0-13.0); NEUTROPHILS # (AUTO) 5.1 x10^3/uL (2.2-4.8); NEUTROPHILS % (AUTO) 68.5 % (42.0-75.0); PLATELET COUNT 196 X10^3/uL (150.0-450.0); RED BLOOD COUNT 4.22 X10^6/uL (4.7-6.0); RED CELL DISTRIBUTION WIDTH 14.3 % (11.6-16.5); WHITE BLOOD COUNT 7.4 X10^3/uL (3.6-10.0)
[2020-02-09 07:02] LABS: ALANINE AMINOTRANSFERASE 16 Units/L (12-78); ALBUMIN 3.1 g/dL (3.4-5.0); ALKALINE PHOSPHATASE 106 Units/L (46-116); ASPARTATE AMINO TRANSFERASE 11 Units/L (15-37); BLOOD UREA NITROGEN 20 mg/dL (7-18); CARBON DIOXIDE 28.8 mmol/L (21-32); CHLORIDE 106 mmol/L (98-107); COR CA(FOR HYPOALB) 9.7 mg/dL (8.5-10.1); COR NA(FOR HYPERGLY) 144 mmol/L (136-145); CREATININE 1.48 mg/dL (0.70-1.30); SODIUM 144 mmol/L (136-145); TOTAL PROTEIN 7.1 g/dL (6.4-8.2); eGFR NON BLACK RACES 50 (>60)
[2020-02-09 08:44] VITALS: BMI 43.2
[2020-02-09] MEDS: GLUCOTROL XL 24-HR PO SCH (08:59)
[2020-02-09] MEDS: LOVENOX INJ 40 MG SYR SC SCH (08:59)
[2020-02-09] MEDS: COZAAR PO SCH (08:59)
[2020-02-09] MEDS: MOBIC TAB 15 MG PO SCH (09:00)
[2020-02-09] MEDS: PLAVIX PO SCH (09:01)
[2020-02-09] MEDS: ZYLOPRIM PO SCH (09:02)
[2020-02-09] MEDS: VANCOMYCIN HCL 500 MG, VANCOMYCIN HCL 1 G in D5W 250 ML IV 250 ML IV SCH ×2 (09:02→21:45)
[2020-02-09] MEDS: SYNTHROID 100 mcg TAB PO SCH (09:02)
[2020-02-09] MEDS: PriLOSEC PO SCH (09:02)
--- NOTE | 2020-02-09 10:52 | PCM.PROG ---
Progress Note - Progress Note for Day of Date of Exam: 02/09/20 - Subjective Subjective: IS BEING TREATED FOR BILATERAL LOWER EXTREMITY CELLULITIS AND SEVERE PERIPHERAL EDEMA. TODAY, HE IS ALERT AND ORIENTED, LYING IN BED ON MORNING ROUNDS. HE CONTINUES WITH 1+ PITTING EDEMA AND ERYTHEMA TO BILATERAL LOWER EXTREMITIES. REDNESS DOES APPEAR TO HAVE DECREASED COMPARED TO YESTERDAY. LEFT LEG IS NOTED WITH A DRESSING TO THE OPEN WOUND. DRESSING IS DRY AND INTACT AT THIS TIME. HIS VITALS THIS MORNING ARE: 98.6-83-20-93%-155/90. LABS WERE OBTAINED. ABNORMAL LAB VALUES INCLUDE THE FOLLOWING: RBC 4.22, HGB 12.9, HCT 37.6, BUN 20, CREATININE 1.48, GLUCOSE 115, AST 11, ALBUMIN 3.1. BLOOD AND WOUND CULTURES ARE PENDING. A LOWER EXTREMITY VENOUS DOPPLER WAS OBTAINED AND IS NEGATIVE FOR DVT. HE IS CURRENTLY RECEIVING NORMAL SALINE AT 50 ML/HR, VANCOMYCIN 1.5G IV Q12H, ZOSYN 3.375G IV TID, HUMULIN R SLIDING SCALE, LOVENOX 40MG SC DAILY, LASIX 40MG IV BID, AND HIS HOME MEDICATIONS OF ZYLOPRIM, NORVASC, PLAVIX, BENTYL, GLIPIZIDE, COZAAR, MOBIC, PRILOSEC, ZOFRAN, ZOCOR, AND ZANAFLEX WERE RESUMED. OTHERWISE, WE WILL CONTINUE WITH WOUND CARE AND CURRENT PLAN OF CARE TODAY. WE PLAN TO FOLLOW UP WITH AM LABS AND CONTINUE TO MONITOR. - Past Medical Family Social History Past Med/Fam/Surg Hx: No changes since H&P Allergies: Allergies No Known Drug Allergies Allergy (Verified 05/30/17 14:17) - Review of Systems ROS: No change since H&P - Vital Signs and I&O's Vital Signs: Temperature 98.6 F Pulse Rate [Left Brachial] 83 Pulse Rate 76 Respiratory Rate 20 Blood Pressure [Left Arm] 155/90 O2 Sat by Pulse Oximetry 93 Intake and Output: Intake & Output 02/06/20 02/07/20 02/08/20 02/09/20 11:59 11:59 11:59 11:59 Intake Total 1200 / 1200 2018 Output Total 1400 / 1400 3700 / 3700 Balance -200 / -200 -1681 / -1681 - Physical Exam Oriented: Normal Eyes: Normal Ear: Normal Nose: Normal Throat: Normal Respiratory: Generalized, Diminished Cardiovascular: Normal : Normal Auscultation: Bowel Sounds: Normal Tenderness: Normal Skin: Red, Tender, Hot, Wound Musculoskeletal: Right, Left, Leg, Swelling (2+ PITTING EDEMA BLE) Psychiatric: Normal Mood Description: Calm Affect: Normal Speech Pattern: Clear, Appropriate - Laboratory and Diagnostics Result Diagrams: 02/09/20 05:54 02/09/20 05:54 Labs: Laboratory WBC 7.4 X10^3/uL (3.6-10.0) 02/09/20 05:54 RBC 4.22 X10^6/uL (4.7-6.0) L 02/09/20 05:54 Hgb 12.9 g/dL (13.5-18.0) L 02/09/20 05:54 Hct 37.6 % (42.0-54.0) L 02/09/20 05:54 MCV 89.3 fL (80.0-100.0) 02/09/20 05:54 MCH 30.5 pg (27.0-34.0) 02/09/20 05:54 MCHC 34.2 g/dL (33.0-35.0) 02/09/20 05:54 RDW 14.3 % (11.6-16.5) 02/09/20 05:54 Plt Count 196 X10^3/uL (150.0-450.0) 02/09/20 05:54 MPV 7.5 fL (7.4-11.0) 02/09/20 05:54 Neut % (Auto) 68.5 % (42.0-75.0) 02/09/20 05:54 Lymph % (Auto) 21.4 % (21.0-51.0) 02/09/20 05:54 [place] % (Auto) 7.1 % (0.0-13.0) 02/09/20 05:54 Eos % (Auto) 2.5 % (0.9-2.9) 02/09/20 05:54 Baso % (Auto) 0.5 % (0.2-1.0) 02/09/20 05:54 Neut # (Auto) 5.1 x10^3/uL (2.2-4.8) H 02/09/20 05:54 Lymph # (Auto) 1.6 X10^3/uL (1.3-2.9) 02/09/20 05:54 [place] # (Auto) 0.5 x10^3/uL (0.3-0.8) 02/09/20 05:54 Eos # (Auto) 0.2 x10^3/uL (0.0-0.2) 02/09/20 05:54 Baso # (Auto) 0.0 X10^3/uL (0.0-0.1) 02/09/20 05:54 Absolute Nucleated RBC 0.0 /100WBC 02/09/20 05:54 ESR 23 MM/HOUR (0-15) H 02/07/20 10:57 Sodium 144 mmol/L (136-145) 02/09/20 05:54 Corrected Sodium 144 mmol/L (136-145) 02/09/20 05:54 Potassium 4.1 mmol/L (3.5-5.1) 02/09/20 05:54 Chloride 106 mmol/L (98-107) 02/09/20 05:54 Carbon Dioxide 28.8 mmol/L (21-32) 02/09/20 05:54 BUN 20 mg/dL (7-18) H 02/09/20 05:54 Creatinine 1.48 mg/dL (0.70-1.30) H 02/09/20 05:54 Est GFR (MDRD) Af Amer > 60 (>60) 02/09/20 05:54 Est GFR (MDRD) Non-Af 50 (>60) L 02/09/20 05:54 Glucose 115 mg/dL (65-99) H 02/09/20 05:54 POC Glucose (mg/dL) 115 mg/dL (65-99) H 02/09/20 05:14 Calcium 9.0 mg/dL (8.5-10.1) 02/09/20 05:54 Corrected Calcium 9.7 mg/dL (8.5-10.1) 02/09/20 05:54 Total Bilirubin 0.40 mg/dL (0.2-1.0) 02/09/20 05:54 AST 11 Units/L (15-37) L 02/09/20 05:54 ALT 16 Units/L (12-78) 02/09/20 05:54 Alkaline Phosphatase 106 Units/L (46-116) 02/09/20 05:54 C-Reactive Protein 13.60 mg/L (0-3.0) H 02/07/20 10:57 Total Protein 7.1 g/dL (6.4-8.2) 02/09/20 05:54 Albumin 3.1 g/dL (3.4-5.0) L 02/09/20 05:54 Globulin 4.0 g/dL (2.5-4.5) 02/09/20 05:54 Albumin/Globulin Ratio 0.8 Ratio (1.1-2.1) L 02/09/20 05:54 - Plan (1) Bilateral lower leg cellulitis Status: Acute Plan: NORMAL SALINE AT 50 ML/HR, VANCOMYCIN 1.5G IV Q12H, ZOSYN 3.375G IV TID, HUMULIN R SLIDING SCALE, LOVENOX 40MG SC DAILY, LASIX 40MG IV BID, AND HIS HOME MEDICATIONS OF ZYLOPRIM, NORVASC, PLAVIX, BENTYL, GLIPIZIDE, COZAAR, MOBIC, PRILOSEC, ZOFRAN, ZOCOR, AND ZANAFLEX WERE RESUMED. 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
[2020-02-09] MEDS: LASIX IVP SCH ×2 (10:55→17:57)
[2020-02-09] MEDS ORDERED: PHARMACY COMMENT IV SCH (20:30)
[2020-02-09] MEDS: NORVASC TAB 5 MG PO SCH (20:30)
[2020-02-09] MEDS: ZANAFLEX PO SCH (20:31)
[2020-02-09] MEDS: ZOCOR TAB 40 MG PO SCH (20:40)
[2020-02-09 20:53] LABS: CREATININE 1.75 mg/dL (0.70-1.30); VANCOMYCIN,TROUGH 19.2 ug/mL (15-20)
[2020-02-09] MEDS: NORCO 10/325 TAB PO PRN (21:55)
[2020-02-10] MEDS: NS 1000 ML 1,000 ML IV SCH ×2 (03:59→19:30)
[2020-02-10] MEDS: ZOSYN VIAL 3.375 GRAMS 3.375 G in NS 100 ML IV + SPIKE MINIBAG* 100 ML IV SCH ×3 (06:05→22:22)
[2020-02-10 06:23] LABS: ALBUMIN 3.2 g/dL (3.4-5.0); CALCIUM 9.2 mg/dL (8.5-10.1); CARBON DIOXIDE 30.4 mmol/L (21-32); COR CA(FOR HYPOALB) 9.8 mg/dL (8.5-10.1); CREATININE 1.54 mg/dL (0.70-1.30); TOTAL PROTEIN 7.4 g/dL (6.4-8.2)
[2020-02-10 06:28] LABS: BASOPHILS % (AUTO) 0.5 % (0.2-1.0); EOSINOPHILS # (AUTO) 0.3 x10^3/uL (0.0-0.2); EOSINOPHILS % (AUTO) 3.5 % (0.9-2.9); HEMATOCRIT 38.9 % (42.0-54.0); HEMOGLOBIN 13.3 g/dL (13.5-18.0); LYMPHOCYTES # (AUTO) 1.7 X10^3/uL (1.3-2.9); LYMPHOCYTES % (AUTO) 22.2 % (21.0-51.0); MEAN CORPUSCULAR HEMOGLOBIN 30.5 pg (27.0-34.0); MEAN CORPUSCULAR HGB CONC 34.1 g/dL (33.0-35.0); MEAN CORPUSCULAR VOLUME 89.5 fL (80.0-100.0); MEAN PLATELET VOLUME 7.6 fL (7.4-11.0); MONOCYTES # (AUTO) 0.5 x10^3/uL (0.3-0.8); MONOCYTES % (AUTO) 6.6 % (0.0-13.0); NEUTROPHILS # (AUTO) 5.2 x10^3/uL (2.2-4.8); NEUTROPHILS % (AUTO) 67.2 % (42.0-75.0); PLATELET COUNT 215 X10^3/uL (150.0-450.0); RED BLOOD COUNT 4.35 X10^6/uL (4.7-6.0); RED CELL DISTRIBUTION WIDTH 14.7 % (11.6-16.5); WHITE BLOOD COUNT 7.7 X10^3/uL (3.6-10.0)
[2020-02-10] MEDS: DUONEB 0.5 MG/3 MG (3 mL) NEB SCH ×3 (06:40→21:29)
[2020-02-10] MEDS: VANCOMYCIN HCL 500 MG, VANCOMYCIN HCL 1 G in D5W 250 ML IV 250 ML IV SCH ×2 (10:54→20:47)
[2020-02-10] MEDS: PLAVIX PO SCH (10:55)
[2020-02-10] MEDS: COZAAR PO SCH (10:55)
[2020-02-10] MEDS: PriLOSEC PO SCH (10:56)
[2020-02-10] MEDS: MOBIC TAB 15 MG PO SCH (10:56)
[2020-02-10] MEDS: ZYLOPRIM PO SCH (10:56)
[2020-02-10] MEDS: SYNTHROID 100 mcg TAB PO SCH (10:57)
[2020-02-10] MEDS: LOVENOX INJ 40 MG SYR SC SCH (10:57)
[2020-02-10] MEDS: LASIX IVP SCH ×2 (10:57→17:33)
[2020-02-10] MEDS: GLUCOTROL XL 24-HR PO SCH (10:58)
[2020-02-10] MEDS: NORCO 10/325 TAB PO PRN (11:10)
[2020-02-10] MEDS: HumuLIN R SUBCUT PRN (17:32)
[2020-02-10] MEDS: NORVASC TAB 5 MG PO SCH (20:46)
[2020-02-10] MEDS: ZOCOR TAB 40 MG PO SCH (20:47)
[2020-02-10] MEDS: ZANAFLEX PO SCH (20:47)
[2020-02-11] MEDS: ZOSYN VIAL 3.375 GRAMS 3.375 G in NS 100 ML IV + SPIKE MINIBAG* 100 ML IV SCH ×3 (05:31→21:45)
[2020-02-11] MEDS: NS 1000 ML 1,000 ML IV SCH ×3 (05:31→21:45)
[2020-02-11 06:03] LABS: BASOPHILS # (AUTO) 0.1 X10^3/uL (0.0-0.1); BASOPHILS % (AUTO) 0.9 % (0.2-1.0); EOSINOPHILS # (AUTO) 0.2 x10^3/uL (0.0-0.2); HEMOGLOBIN 12.8 g/dL (13.5-18.0); LYMPHOCYTES # (AUTO) 1.7 X10^3/uL (1.3-2.9); LYMPHOCYTES % (AUTO) 22.7 % (21.0-51.0); MEAN CORPUSCULAR HEMOGLOBIN 30.3 pg (27.0-34.0); MEAN CORPUSCULAR HGB CONC 33.8 g/dL (33.0-35.0); MEAN CORPUSCULAR VOLUME 89.8 fL (80.0-100.0); MEAN PLATELET VOLUME 7.5 fL (7.4-11.0); MONOCYTES # (AUTO) 0.6 x10^3/uL (0.3-0.8); MONOCYTES % (AUTO) 7.7 % (0.0-13.0); NEUTROPHILS # (AUTO) 4.9 x10^3/uL (2.2-4.8); NEUTROPHILS % (AUTO) 65.7 % (42.0-75.0); PLATELET COUNT 218 X10^3/uL (150.0-450.0); RED BLOOD COUNT 4.23 X10^6/uL (4.7-6.0); RED CELL DISTRIBUTION WIDTH 14.5 % (11.6-16.5); WHITE BLOOD COUNT 7.4 X10^3/uL (3.6-10.0)
[2020-02-11 06:22] LABS: ALANINE AMINOTRANSFERASE 24 Units/L (12-78); ALBUMIN 3.1 g/dL (3.4-5.0); ALKALINE PHOSPHATASE 110 Units/L (46-116); ASPARTATE AMINO TRANSFERASE 14 Units/L (15-37); BLOOD UREA NITROGEN 27 mg/dL (7-18); CARBON DIOXIDE 30.5 mmol/L (21-32); CHLORIDE 105 mmol/L (98-107); COR CA(FOR HYPOALB) 9.7 mg/dL (8.5-10.1); CREATININE 1.93 mg/dL (0.70-1.30); SODIUM 143 mmol/L (136-145); TOTAL PROTEIN 7.1 g/dL (6.4-8.2); eGFR NON BLACK RACES 37 (>60)
[2020-02-11] MEDS: DUONEB 0.5 MG/3 MG (3 mL) NEB SCH ×3 (06:24→21:38)
[2020-02-11] MEDS: COZAAR PO SCH (09:11)
[2020-02-11] MEDS: GLUCOTROL XL 24-HR PO SCH (09:12)
[2020-02-11] MEDS: LOVENOX INJ 40 MG SYR SC SCH (09:12)
[2020-02-11] MEDS: MOBIC TAB 15 MG PO SCH (09:13)
[2020-02-11] MEDS: PLAVIX PO SCH (09:13)
[2020-02-11] MEDS: ZYLOPRIM PO SCH (09:14)
[2020-02-11] MEDS: SYNTHROID 100 mcg TAB PO SCH (09:14)
[2020-02-11] MEDS: VANCOMYCIN HCL 500 MG, VANCOMYCIN HCL 1 G in D5W 250 ML IV 250 ML IV SCH ×2 (09:14→21:46)
[2020-02-11] MEDS: PriLOSEC PO SCH (09:14)
[2020-02-11] MEDS: LASIX IVP SCH (09:39)
[2020-02-11] MEDS: HumuLIN R SUBCUT PRN ×2 (11:25→21:40)
[2020-02-11 21:08] LABS: CREATININE 1.99 mg/dL (0.70-1.30)
[2020-02-11] MEDS ORDERED: PHARMACY CONSULT - VANCOMYCIN XX SCH (21:22)
[2020-02-11] MEDS: ZOCOR TAB 40 MG PO SCH (21:41)
[2020-02-11] MEDS: ZANAFLEX PO SCH (21:41)
[2020-02-11] MEDS: NORCO 10/325 TAB PO PRN (21:41)
[2020-02-11] MEDS: NORVASC TAB 5 MG PO SCH (21:41)
[2020-02-12] MEDS: ZOSYN VIAL 3.375 GRAMS 3.375 G in NS 100 ML IV + SPIKE MINIBAG* 100 ML IV SCH ×3 (05:46→22:05)
[2020-02-12] MEDS: DUONEB 0.5 MG/3 MG (3 mL) NEB SCH ×3 (05:47→21:29)
[2020-02-12 06:23] LABS: BASOPHILS # (AUTO) 0.1 X10^3/uL (0.0-0.1); BASOPHILS % (AUTO) 0.8 % (0.2-1.0); EOSINOPHILS # (AUTO) 0.2 x10^3/uL (0.0-0.2); EOSINOPHILS % (AUTO) 2.6 % (0.9-2.9); HEMOGLOBIN 13.1 g/dL (13.5-18.0); LYMPHOCYTES # (AUTO) 1.8 X10^3/uL (1.3-2.9); LYMPHOCYTES % (AUTO) 22.9 % (21.0-51.0); MEAN CORPUSCULAR HEMOGLOBIN 30.4 pg (27.0-34.0); MEAN CORPUSCULAR HGB CONC 33.5 g/dL (33.0-35.0); MEAN CORPUSCULAR VOLUME 90.7 fL (80.0-100.0); MEAN PLATELET VOLUME 7.9 fL (7.4-11.0); MONOCYTES # (AUTO) 0.6 x10^3/uL (0.3-0.8); MONOCYTES % (AUTO) 7.6 % (0.0-13.0); NEUTROPHILS # (AUTO) 5.1 x10^3/uL (2.2-4.8); NEUTROPHILS % (AUTO) 66.1 % (42.0-75.0); PLATELET COUNT 220 X10^3/uL (150.0-450.0); RED CELL DISTRIBUTION WIDTH 14.8 % (11.6-16.5); WHITE BLOOD COUNT 7.7 X10^3/uL (3.6-10.0)
[2020-02-12 06:43] LABS: ALBUMIN 3.3 g/dL (3.4-5.0); CALCIUM 9.3 mg/dL (8.5-10.1); CARBON DIOXIDE 31.8 mmol/L (21-32); COR CA(FOR HYPOALB) 9.9 mg/dL (8.5-10.1); CREATININE 1.85 mg/dL (0.70-1.30); TOTAL PROTEIN 7.5 g/dL (6.4-8.2)
[2020-02-12] MEDS ORDERED: PHARMACY COMMENT IV SCH (08:30)
[2020-02-12] MEDS: COZAAR PO SCH (09:14)
[2020-02-12] MEDS: PLAVIX PO SCH (09:14)
[2020-02-12] MEDS: GLUCOTROL XL 24-HR PO SCH (09:14)
[2020-02-12] MEDS: LASIX IVP SCH (09:15)
[2020-02-12] MEDS: MOBIC TAB 15 MG PO SCH (09:15)
[2020-02-12] MEDS: PriLOSEC PO SCH (09:15)
[2020-02-12] MEDS: SYNTHROID 100 mcg TAB PO SCH (09:16)
[2020-02-12] MEDS: LOVENOX INJ 40 MG SYR SC SCH (09:17)
[2020-02-12] MEDS: ZYLOPRIM PO SCH (09:17)
[2020-02-12] MEDS: NS 1000 ML 1,000 ML IV SCH ×2 (09:21→20:55)
[2020-02-12] MEDS: HumuLIN R SUBCUT PRN (11:29)
[2020-02-12] MEDS: NORVASC TAB 5 MG PO SCH (20:55)
[2020-02-12] MEDS: VANCOMYCIN HCL 1 G in D5W 250 ML IV 250 ML IV SCH (20:55)
[2020-02-12] MEDS: ZANAFLEX PO SCH (20:56)
[2020-02-12] MEDS: ZOCOR TAB 40 MG PO SCH (20:56)
[2020-02-12] MEDS: NORCO 10/325 TAB PO PRN (20:57)
--- NOTE | 2020-02-12 22:04 | PCM.PROG ---
Progress Note - Progress Note for Day of Date of Exam: 02/11/20 - Subjective Subjective: IS BEING TREATED FOR BILATERAL LOWER EXTREMITY CELLULITIS AND SEVERE PERIPHERAL EDEMA. TODAY, HE IS ALERT AND ORIENTED, SITTING ON SIDE OF BED ON MORNING ROUNDS. HE CONTINUES WITH 1+ PITTING EDEMA AND ERYTHEMA TO LEFT LOWER EXTREMITY. RLEFT LEG IS NOTED WITH A DRESSING TO THE OPEN WOUND. DRESSING IS DRY AND INTACT AT THIS TIME. PATIENT GIVES HISTORY OF PREVIOUS TESTING FOR PVD. 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 STATES L>R USUALLY. NO OTHER COMPLANTS. VOICED. - Past Medical Family Social History Past Med/Fam/Surg Hx: No changes since H&P Allergies: Allergies No Known Drug Allergies Allergy (Verified 05/30/17 14:17) - Review of Systems ROS: No change since H&P - Vital Signs and I&O's Vital Signs: Temperature 97.6 F Pulse Rate [Left Brachial] 81 Pulse Rate 68 Respiratory Rate 20 Blood Pressure [Left Arm] 122/61 O2 Sat by Pulse Oximetry 94 Intake and Output: Intake & Output 02/09/20 02/10/20 02/11/20 02/12/20 23:59 23:59 23:59 23:59 Intake Total 1879 / 1879 1410 / 1410 2220 / 2220 1220 / 1220 Output Total 1999 1825 / 1825 2890 / 2890 1075 / 1075 Balance -121 / -121 -415 / -415 -670 / -670 145 / 145 - Physical Exam Oriented: Normal Eyes: Normal Ear: Normal Nose: Normal Throat: Normal Respiratory: Generalized, Diminished Cardiovascular: Normal : Normal Auscultation: Bowel Sounds: Normal Tenderness: Normal Skin: Red, Tender, Wound (LLE LATERAL AND MEDIAL ASPECT OF LOW CALF.), Other (BROWNISH RED DISCOLORATION TO BILATERAL LOWER EXTREMIIES. CIRCUMFRENTIAL IN NATURE. ) Musculoskeletal: Right, Left, Leg, Swelling (2+ PITTING EDEMA BLE) Psychiatric: Normal Mood Description: Calm Affect: Normal Speech Pattern: Clear, Appropriate - Laboratory and Diagnostics Result Diagrams: 02/12/20 05:45 02/12/20 05:45 Labs: 02/08/20 05:50 Drainage Wound Culture - Final Staphylococcus Aureus 02/07/20 10:57 Blood Blood Culture - Preliminary 02/07/20 10:57 Blood Blood Culture - Preliminary Laboratory WBC 7.7 X10^3/uL (3.6-10.0) 02/12/20 05:45 RBC 4.30 X10^6/uL (4.7-6.0) L 02/12/20 05:45 Hgb 13.1 g/dL (13.5-18.0) L 02/12/20 05:45 Hct 39.0 % (42.0-54.0) L 02/12/20 05:45 MCV 90.7 fL (80.0-100.0) 02/12/20 05:45 MCH 30.4 pg (27.0-34.0) 02/12/20 05:45 MCHC 33.5 g/dL (33.0-35.0) 02/12/20 05:45 RDW 14.8 % (11.6-16.5) 02/12/20 05:45 Plt Count 220 X10^3/uL (150.0-450.0) 02/12/20 05:45 MPV 7.9 fL (7.4-11.0) 02/12/20 05:45 Neut % (Auto) 66.1 % (42.0-75.0) 02/12/20 05:45 Lymph % (Auto) 22.9 % (21.0-51.0) 02/12/20 05:45 [place] % (Auto) 7.6 % (0.0-13.0) 02/12/20 05:45 Eos % (Auto) 2.6 % (0.9-2.9) 02/12/20 05:45 Baso % (Auto) 0.8 % (0.2-1.0) 02/12/20 05:45 Neut # (Auto) 5.1 x10^3/uL (2.2-4.8) H 02/12/20 05:45 Lymph # (Auto) 1.8 X10^3/uL (1.3-2.9) 02/12/20 05:45 [place] # (Auto) 0.6 x10^3/uL (0.3-0.8) 02/12/20 05:45 Eos # (Auto) 0.2 x10^3/uL (0.0-0.2) 02/12/20 05:45 Baso # (Auto) 0.1 X10^3/uL (0.0-0.1) 02/12/20 05:45 Absolute Nucleated RBC 0.0 /100WBC 02/12/20 05:45 ESR 23 MM/HOUR (0-15) H 02/07/20 10:57 Sodium 144 mmol/L (136-145) 02/12/20 05:45 Corrected Sodium 144 mmol/L (136-145) 02/12/20 05:45 Potassium 4.0 mmol/L (3.5-5.1) 02/12/20 05:45 Chloride 106 mmol/L (98-107) 02/12/20 05:45 Carbon Dioxide 31.8 mmol/L (21-32) 02/12/20 05:45 BUN 28 mg/dL (7-18) H 02/12/20 05:45 Creatinine 1.85 mg/dL (0.70-1.30) H 02/12/20 05:45 Est GFR (MDRD) Af Amer 47 (>60) L 02/12/20 05:45 Est GFR (MDRD) Non-Af 39 (>60) L 02/12/20 05:45 Glucose 116 mg/dL (65-99) H 02/12/20 05:45 POC Glucose (mg/dL) 132 mg/dL (65-99) H 02/12/20 18:09 Calcium 9.3 mg/dL (8.5-10.1) 02/12/20 05:45 Corrected Calcium 9.9 mg/dL (8.5-10.1) 02/12/20 05:45 Total Bilirubin 0.40 mg/dL (0.2-1.0) 02/12/20 05:45 AST 16 Units/L (15-37) 02/12/20 05:45 ALT 30 Units/L (12-78) 02/12/20 05:45 Alkaline Phosphatase 115 Units/L (46-116) 02/12/20 05:45 C-Reactive Protein 13.60 mg/L (0-3.0) H 02/07/20 10:57 Total Protein 7.5 g/dL (6.4-8.2) 02/12/20 05:45 Albumin 3.3 g/dL (3.4-5.0) L 02/12/20 05:45 Globulin 4.2 g/dL (2.5-4.5) 02/12/20 05:45 Albumin/Globulin Ratio 0.8 Ratio (1.1-2.1) L 02/12/20 05:45 Vancomycin Trough 30.0 ug/mL (15-20) H* 02/11/20 20:34 Random Vancomycin 22.8 ug/mL 02/12/20 05:45 - Plan (1) Bilateral lower leg cellulitis Status: Acute Plan: NORMAL SALINE AT 50 ML/HR, VANCOMYCIN 1.5G IV Q12H, ZOSYN 3.375G IV TID, HUMULIN R SLIDING SCALE, LOVENOX 40MG SC DAILY, LASIX 40MG IV BID, AND HIS HOME MEDICATIONS OF ZYLOPRIM, NORVASC, PLAVIX, BENTYL, GLIPIZIDE, COZAAR, MOBIC, PRILOSEC, ZOFRAN, ZOCOR, AND ZANAFLEX WERE RESUMED. 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
--- NOTE | 2020-02-12 22:08 | PCM.PROG ---
Progress Note - Progress Note for Day of Date of Exam: 02/12/20 - Subjective Subjective: IS BEING TREATED FOR BILATERAL LOWER EXTREMITY CELLULITIS AND SEVERE PERIPHERAL EDEMA. TODAY, HE IS ALERT AND ORIENTED, SITTING ON SIDE OF BED. HE CONTINUES WITH 1+ PITTING EDEMA AND ERYTHEMA TO LEFT LOWER EXTREMITY. DRESSING IS DRY AND INTACT AT THIS TIME. PATIENT GIVES HISTORY OF PREVIOUS TESTING FOR PVD. dISCUSSED KIDNEY FUNCTION AND IMPROVEMENT WITH DECREASING LASIX. NO OTHER COMPLANTS VOICED. - Past Medical Family Social History Past Med/Fam/Surg Hx: No changes since H&P Allergies: Allergies No Known Drug Allergies Allergy (Verified 05/30/17 14:17) - Review of Systems ROS: No change since H&P - Vital Signs and I&O's Vital Signs: Temperature 97.6 F Pulse Rate [Left Brachial] 81 Pulse Rate 68 Respiratory Rate 20 Blood Pressure [Left Arm] 122/61 O2 Sat by Pulse Oximetry 94 Intake and Output: Intake & Output 02/09/20 02/10/20 02/11/20 02/12/20 23:59 23:59 23:59 23:59 Intake Total 1879 / 1879 1410 / 1410 2220 / 2220 1220 / 1220 Output Total 1999 1825 / 1825 2890 / 2890 1075 / 1075 Balance -121 / -121 -415 / -415 -670 / -670 145 / 145 - Physical Exam Oriented: Normal Eyes: Normal Ear: Normal Nose: Normal Throat: Normal Respiratory: Generalized, Diminished Cardiovascular: Normal : Normal Auscultation: Bowel Sounds: Normal Tenderness: Normal Skin: Red, Tender, Wound (LLE LATERAL AND MEDIAL ASPECT OF LOW CALF.), Other (BROWNISH RED DISCOLORATION TO BILATERAL LOWER EXTREMIIES. CIRCUMFRENTIAL IN NATURE. ) Musculoskeletal: Right, Left, Leg, Swelling (2+ PITTING EDEMA BLE) Psychiatric: Normal Mood Description: Calm Affect: Normal Speech Pattern: Clear, Appropriate - Laboratory and Diagnostics Result Diagrams: 02/12/20 05:45 02/12/20 05:45 Labs: 02/08/20 05:50 Drainage Wound Culture - Final Staphylococcus Aureus 02/07/20 10:57 Blood Blood Culture - Preliminary 02/07/20 10:57 Blood Blood Culture - Preliminary Laboratory WBC 7.7 X10^3/uL (3.6-10.0) 02/12/20 05:45 RBC 4.30 X10^6/uL (4.7-6.0) L 02/12/20 05:45 Hgb 13.1 g/dL (13.5-18.0) L 02/12/20 05:45 Hct 39.0 % (42.0-54.0) L 02/12/20 05:45 MCV 90.7 fL (80.0-100.0) 02/12/20 05:45 MCH 30.4 pg (27.0-34.0) 02/12/20 05:45 MCHC 33.5 g/dL (33.0-35.0) 02/12/20 05:45 RDW 14.8 % (11.6-16.5) 02/12/20 05:45 Plt Count 220 X10^3/uL (150.0-450.0) 02/12/20 05:45 MPV 7.9 fL (7.4-11.0) 02/12/20 05:45 Neut % (Auto) 66.1 % (42.0-75.0) 02/12/20 05:45 Lymph % (Auto) 22.9 % (21.0-51.0) 02/12/20 05:45 [place] % (Auto) 7.6 % (0.0-13.0) 02/12/20 05:45 Eos % (Auto) 2.6 % (0.9-2.9) 02/12/20 05:45 Baso % (Auto) 0.8 % (0.2-1.0) 02/12/20 05:45 Neut # (Auto) 5.1 x10^3/uL (2.2-4.8) H 02/12/20 05:45 Lymph # (Auto) 1.8 X10^3/uL (1.3-2.9) 02/12/20 05:45 [place] # (Auto) 0.6 x10^3/uL (0.3-0.8) 02/12/20 05:45 Eos # (Auto) 0.2 x10^3/uL (0.0-0.2) 02/12/20 05:45 Baso # (Auto) 0.1 X10^3/uL (0.0-0.1) 02/12/20 05:45 Absolute Nucleated RBC 0.0 /100WBC 02/12/20 05:45 ESR 23 MM/HOUR (0-15) H 02/07/20 10:57 Sodium 144 mmol/L (136-145) 02/12/20 05:45 Corrected Sodium 144 mmol/L (136-145) 02/12/20 05:45 Potassium 4.0 mmol/L (3.5-5.1) 02/12/20 05:45 Chloride 106 mmol/L (98-107) 02/12/20 05:45 Carbon Dioxide 31.8 mmol/L (21-32) 02/12/20 05:45 BUN 28 mg/dL (7-18) H 02/12/20 05:45 Creatinine 1.85 mg/dL (0.70-1.30) H 02/12/20 05:45 Est GFR (MDRD) Af Amer 47 (>60) L 02/12/20 05:45 Est GFR (MDRD) Non-Af 39 (>60) L 02/12/20 05:45 Glucose 116 mg/dL (65-99) H 02/12/20 05:45 POC Glucose (mg/dL) 132 mg/dL (65-99) H 02/12/20 18:09 Calcium 9.3 mg/dL (8.5-10.1) 02/12/20 05:45 Corrected Calcium 9.9 mg/dL (8.5-10.1) 02/12/20 05:45 Total Bilirubin 0.40 mg/dL (0.2-1.0) 02/12/20 05:45 AST 16 Units/L (15-37) 02/12/20 05:45 ALT 30 Units/L (12-78) 02/12/20 05:45 Alkaline Phosphatase 115 Units/L (46-116) 02/12/20 05:45 C-Reactive Protein 13.60 mg/L (0-3.0) H 02/07/20 10:57 Total Protein 7.5 g/dL (6.4-8.2) 02/12/20 05:45 Albumin 3.3 g/dL (3.4-5.0) L 02/12/20 05:45 Globulin 4.2 g/dL (2.5-4.5) 02/12/20 05:45 Albumin/Globulin Ratio 0.8 Ratio (1.1-2.1) L 02/12/20 05:45 Vancomycin Trough 30.0 ug/mL (15-20) H* 02/11/20 20:34 Random Vancomycin 22.8 ug/mL 02/12/20 05:45 - Plan (1) Bilateral lower leg cellulitis Status: Acute Plan: NORMAL SALINE AT 50 ML/HR, VANCOMYCIN 1.5G IV Q12H, ZOSYN 3.375G IV TID, HUMULIN R SLIDING SCALE, LOVENOX 40MG SC DAILY, LASIX 40MG IV BID, AND HIS HOME MEDICATIONS OF ZYLOPRIM, NORVASC, PLAVIX, BENTYL, GLIPIZIDE, COZAAR, MOBIC, PRILOSEC, ZOFRAN, ZOCOR, AND ZANAFLEX WERE RESUMED. 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 LASIX DECREASED TO ONCE DAILY.
[2020-02-13] MEDS: ZOSYN VIAL 3.375 GRAMS 3.375 G in NS 100 ML IV + SPIKE MINIBAG* 100 ML IV SCH ×4 (05:47→21:16)
[2020-02-13] MEDS: NORCO 10/325 TAB PO PRN (05:52)
[2020-02-13 05:57] LABS: CALCIUM 8.8 mg/dL (8.5-10.1); CARBON DIOXIDE 29.5 mmol/L (21-32); COR CA(FOR HYPOALB) 9.6 mg/dL (8.5-10.1); CREATININE 1.84 mg/dL (0.70-1.30); TOTAL PROTEIN 6.9 g/dL (6.4-8.2)
[2020-02-13 06:09] LABS: BASOPHILS % (AUTO) 0.7 % (0.2-1.0); EOSINOPHILS # (AUTO) 0.2 x10^3/uL (0.0-0.2); EOSINOPHILS % (AUTO) 2.9 % (0.9-2.9); HEMOGLOBIN 12.6 g/dL (13.5-18.0); LYMPHOCYTES # (AUTO) 1.6 X10^3/uL (1.3-2.9); LYMPHOCYTES % (AUTO) 23.9 % (21.0-51.0); MEAN CORPUSCULAR HEMOGLOBIN 30.4 pg (27.0-34.0); MEAN CORPUSCULAR VOLUME 89.5 fL (80.0-100.0); MEAN PLATELET VOLUME 7.6 fL (7.4-11.0); MONOCYTES # (AUTO) 0.5 x10^3/uL (0.3-0.8); MONOCYTES % (AUTO) 7.4 % (0.0-13.0); NEUTROPHILS # (AUTO) 4.3 x10^3/uL (2.2-4.8); NEUTROPHILS % (AUTO) 65.1 % (42.0-75.0); PLATELET COUNT 204 X10^3/uL (150.0-450.0); RED BLOOD COUNT 4.14 X10^6/uL (4.7-6.0); RED CELL DISTRIBUTION WIDTH 14.8 % (11.6-16.5); WHITE BLOOD COUNT 6.5 X10^3/uL (3.6-10.0)
[2020-02-13] MEDS: NS 1000 ML 1,000 ML IV SCH ×2 (06:10→10:36)
[2020-02-13] MEDS: DUONEB 0.5 MG/3 MG (3 mL) NEB SCH ×3 (06:13→21:08)
[2020-02-13] MEDS: GLUCOTROL XL 24-HR PO SCH (08:42)
[2020-02-13] MEDS: COZAAR PO SCH (08:42)
[2020-02-13] MEDS: LASIX IVP SCH (08:43)
[2020-02-13] MEDS: PLAVIX PO SCH (08:44)
[2020-02-13] MEDS: MOBIC TAB 15 MG PO SCH (08:44)
[2020-02-13] MEDS: LOVENOX INJ 40 MG SYR SC SCH (08:44)
[2020-02-13] MEDS: PriLOSEC PO SCH (08:45)
[2020-02-13] MEDS: SYNTHROID 100 mcg TAB PO SCH (08:45)
[2020-02-13] MEDS: ZYLOPRIM PO SCH (08:46)
[2020-02-13] MEDS: VANCOMYCIN HCL 1 G in D5W 250 ML IV 250 ML IV SCH ×2 (08:46→20:02)
--- NOTE | 2020-02-13 18:32 | PCM.PROG ---
Progress Note - Subjective Subjective: The patient is a 69-year-old white male who was admitted with bilateral lower extremity cellulitis. Since admission, the patient has been on IV Vancomycin for treatment of lower extremity cellulitis. Also, he has wound cultures obtained on admission that were positive for coagulace negative staph. He had lower extremity dopplers that were negative for a deep vein thrombosis. He has also been on IV Lasix with significant improvement in lower extremity edema and good urine output. The patients renal function is stable today. The patient is on anticoagulant prophylaxis. The patient is denying any chest pain or shortness of breath. He states that he has had good urine output as well as normal bowel movements. No blood or mucous in his stool. - Past Medical Family Social History Past Med/Fam/Surg Hx: No changes since H&P Allergies: Allergies No Known Drug Allergies Allergy (Verified 05/30/17 14:17) - Review of Systems ROS: No change since H&P - Vital Signs and I&O's Vital Signs: Temperature 97.6 F Pulse Rate [Left Brachial] 82 Pulse Rate 76 Respiratory Rate 20 Blood Pressure [Right Arm] 137/57 Blood Pressure [Left Arm] 122/61 O2 Sat by Pulse Oximetry 94 Intake and Output: Intake & Output 02/11/20 02/12/20 02/13/20 02/14/20 11:59 11:59 11:59 11:59 Intake Total 1410 / 1410 2560 / 2560 2570 / 2570 1310 / 1310 Output Total 1875 / 1875 2615 / 2615 1999 / 1999 1250 / 1250 Balance -465 / -465 -55 / -55 570 / 570 60 / 60 - Physical Exam Oriented: Normal Eyes: Normal Ear: Normal Nose: Normal Throat: Normal Respiratory: Generalized, Diminished Cardiovascular: Normal : Normal Auscultation: Bowel Sounds: Normal Tenderness: Normal Skin: Red, Tender, Wound (LLE LATERAL AND MEDIAL ASPECT OF LOW CALF.), Other (BROWNISH RED DISCOLORATION TO BILATERAL LOWER EXTREMIIES. CIRCUMFRENTIAL IN NATURE. ) Musculoskeletal: Right, Left, Leg, Swelling (2+ PITTING EDEMA BLE) Psychiatric: Normal Mood Description: Calm Affect: Normal Speech Pattern: Clear, Appropriate - Laboratory and Diagnostics Result Diagrams: 02/13/20 05:10 02/13/20 05:10 Labs: 02/07/20 10:57 Blood Blood Culture - Final 02/07/20 10:57 Blood Blood Culture - Final 02/08/20 05:50 Drainage Wound Culture - Final Staphylococcus Aureus Laboratory WBC 6.5 X10^3/uL (3.6-10.0) 02/13/20 05:10 RBC 4.14 X10^6/uL (4.7-6.0) L 02/13/20 05:10 Hgb 12.6 g/dL (13.5-18.0) L 02/13/20 05:10 Hct 37.0 % (42.0-54.0) L 02/13/20 05:10 MCV 89.5 fL (80.0-100.0) 02/13/20 05:10 MCH 30.4 pg (27.0-34.0) 02/13/20 05:10 MCHC 34.0 g/dL (33.0-35.0) 02/13/20 05:10 RDW 14.8 % (11.6-16.5) 02/13/20 05:10 Plt Count 204 X10^3/uL (150.0-450.0) 02/13/20 05:10 MPV 7.6 fL (7.4-11.0) 02/13/20 05:10 Neut % (Auto) 65.1 % (42.0-75.0) 02/13/20 05:10 Lymph % (Auto) 23.9 % (21.0-51.0) 02/13/20 05:10 [place] % (Auto) 7.4 % (0.0-13.0) 02/13/20 05:10 Eos % (Auto) 2.9 % (0.9-2.9) 02/13/20 05:10 Baso % (Auto) 0.7 % (0.2-1.0) 02/13/20 05:10 Neut # (Auto) 4.3 x10^3/uL (2.2-4.8) 02/13/20 05:10 Lymph # (Auto) 1.6 X10^3/uL (1.3-2.9) 02/13/20 05:10 [place] # (Auto) 0.5 x10^3/uL (0.3-0.8) 02/13/20 05:10 Eos # (Auto) 0.2 x10^3/uL (0.0-0.2) 02/13/20 05:10 Baso # (Auto) 0.0 X10^3/uL (0.0-0.1) 02/13/20 05:10 Absolute Nucleated RBC 0.0 /100WBC 02/13/20 05:10 ESR 23 MM/HOUR (0-15) H 02/07/20 10:57 Sodium 144 mmol/L (136-145) 02/13/20 05:10 Corrected Sodium 144 mmol/L (136-145) 02/13/20 05:10 Potassium 4.0 mmol/L (3.5-5.1) 02/13/20 05:10 Chloride 108 mmol/L (98-107) H 02/13/20 05:10 Carbon Dioxide 29.5 mmol/L (21-32) 02/13/20 05:10 BUN 26 mg/dL (7-18) H 02/13/20 05:10 Creatinine 1.84 mg/dL (0.70-1.30) H 02/13/20 05:10 Est GFR (MDRD) Af Amer 47 (>60) L 02/13/20 05:10 Est GFR (MDRD) Non-Af 39 (>60) L 02/13/20 05:10 Glucose 111 mg/dL (65-99) H 02/13/20 05:10 POC Glucose (mg/dL) 101 mg/dL (65-99) H 02/13/20 16:43 Calcium 8.8 mg/dL (8.5-10.1) 02/13/20 05:10 Corrected Calcium 9.6 mg/dL (8.5-10.1) 02/13/20 05:10 Total Bilirubin 0.40 mg/dL (0.2-1.0) 02/13/20 05:10 AST 19 Units/L (15-37) 02/13/20 05:10 ALT 29 Units/L (12-78) 02/13/20 05:10 Alkaline Phosphatase 106 Units/L (46-116) 02/13/20 05:10 C-Reactive Protein 13.60 mg/L (0-3.0) H 02/07/20 10:57 Total Protein 6.9 g/dL (6.4-8.2) 02/13/20 05:10 Albumin 3.0 g/dL (3.4-5.0) L 02/13/20 05:10 Globulin 3.9 g/dL (2.5-4.5) 02/13/20 05:10 Albumin/Globulin Ratio 0.8 Ratio (1.1-2.1) L 02/13/20 05:10 Vancomycin Trough 30.0 ug/mL (15-20) H* 02/11/20 20:34 Random Vancomycin 19.3 ug/mL 02/13/20 05:10
[2020-02-13] MEDS: NORVASC TAB 5 MG PO SCH (20:01)
[2020-02-13] MEDS: ZANAFLEX PO SCH (20:01)
[2020-02-13] MEDS: ZOCOR TAB 40 MG PO SCH (20:02)
[2020-02-14] MEDS: NS 1000 ML 1,000 ML IV SCH ×2 (00:24→11:03)
[2020-02-14] MEDS: ZOSYN VIAL 3.375 GRAMS 3.375 G in NS 100 ML IV + SPIKE MINIBAG* 100 ML IV SCH (05:35)
[2020-02-14 06:03] LABS: BASOPHILS # (AUTO) 0.1 X10^3/uL (0.0-0.1); BASOPHILS % (AUTO) 0.8 % (0.2-1.0); EOSINOPHILS # (AUTO) 0.2 x10^3/uL (0.0-0.2); EOSINOPHILS % (AUTO) 2.2 % (0.9-2.9); HEMATOCRIT 38.6 % (42.0-54.0); HEMOGLOBIN 13.1 g/dL (13.5-18.0); LYMPHOCYTES # (AUTO) 1.5 X10^3/uL (1.3-2.9); LYMPHOCYTES % (AUTO) 19.4 % (21.0-51.0); MEAN CORPUSCULAR HEMOGLOBIN 30.5 pg (27.0-34.0); MEAN CORPUSCULAR HGB CONC 33.9 g/dL (33.0-35.0); MEAN CORPUSCULAR VOLUME 89.9 fL (80.0-100.0); MEAN PLATELET VOLUME 7.7 fL (7.4-11.0); MONOCYTES # (AUTO) 0.5 x10^3/uL (0.3-0.8); MONOCYTES % (AUTO) 6.8 % (0.0-13.0); NEUTROPHILS # (AUTO) 5.6 x10^3/uL (2.2-4.8); NEUTROPHILS % (AUTO) 70.8 % (42.0-75.0); PLATELET COUNT 220 X10^3/uL (150.0-450.0); RED BLOOD COUNT 4.29 X10^6/uL (4.7-6.0); RED CELL DISTRIBUTION WIDTH 14.5 % (11.6-16.5); WHITE BLOOD COUNT 7.9 X10^3/uL (3.6-10.0)
[2020-02-14 06:33] LABS: ALANINE AMINOTRANSFERASE 29 Units/L (12-78); ALBUMIN 3.1 g/dL (3.4-5.0); ALKALINE PHOSPHATASE 105 Units/L (46-116); ASPARTATE AMINO TRANSFERASE 15 Units/L (15-37); BLOOD UREA NITROGEN 27 mg/dL (7-18); CARBON DIOXIDE 29.2 mmol/L (21-32); CHLORIDE 107 mmol/L (98-107); COR CA(FOR HYPOALB) 9.7 mg/dL (8.5-10.1); CREATININE 1.81 mg/dL (0.70-1.30); SODIUM 144 mmol/L (136-145); TOTAL PROTEIN 7.1 g/dL (6.4-8.2); eGFR NON BLACK RACES 40 (>60)
[2020-02-14] MEDS ORDERED: KLOR-CON PO PRN (07:29)
[2020-02-14] MEDS ORDERED: POTASSIUM CHL 40 MEQ/NS 0.45% 500 ML IV PRN (07:29)
[2020-02-14] MEDS ORDERED: POTASSIUM CHL 60 MEQ/NS 0.45% 500 ML IV PRN (07:29)
[2020-02-14] MEDS ORDERED: MICRO K EXTEN CAP 10 MEQ PO PRN (07:29)
[2020-02-14] MEDS ORDERED: POTASSIUM CHLORIDE LIQ 20 MEQ UDC PO PRN (07:29)
[2020-02-14] MEDS ORDERED: K-DUR TAB 20 MEQ PO PRN (07:29)
[2020-02-14] MEDS ORDERED: K-RIDER 10 MEQ/NS 100 ML 10 MEQ/100 ML BAG IV PRN (07:29)
[2020-02-14 07:46] VITALS: BP 142/65
[2020-02-14] MEDS ORDERED: PHARMACY COMMENT IV NR (08:30)
[2020-02-14 08:31] LABS: CREATININE 1.97 mg/dL (0.70-1.30)
[2020-02-14] MEDS ORDERED: K-DUR TAB 20 MEQ PO ONE (08:36)
[2020-02-14] MEDS ORDERED: NORCO 10/325 TAB ONE (08:37)
[2020-02-14 08:54] LABS: VANCOMYCIN,TROUGH 21.2 ug/mL (15-20)
[2020-02-14] MEDS: LOVENOX INJ 40 MG SYR SC SCH (08:58)
[2020-02-14] MEDS: SYNTHROID 100 mcg TAB PO SCH (08:58)
[2020-02-14] MEDS: MOBIC TAB 15 MG PO SCH (08:58)
[2020-02-14] MEDS: PriLOSEC PO SCH (08:59)
[2020-02-14] MEDS: ZYLOPRIM PO SCH (09:00)
[2020-02-14] MEDS: NORCO 10/325 TAB PO PRN (09:01)
[2020-02-14] MEDS: PLAVIX PO SCH (09:01)
[2020-02-14] MEDS: GLUCOTROL XL 24-HR PO SCH (09:01)
[2020-02-14] MEDS: COZAAR PO SCH (09:02)
[2020-02-14] MEDS ORDERED: VANCOMYCIN HCL 750 MG VIAL 750 MG in D5W 250 ML IV 250 ML IV SCH (21:00)
[2020-02-16] MEDS ORDERED: PHARMACY COMMENT IV NR (08:30)
== END 2020-02-14 11:55 | disposition home health service (06) | DRG 603 ==
LOC: MED/SURG 10:24
PROVIDERS: ADMIT Internal Medicine; ATTEND Internal Medicine
DX: B95.61 Methicillin susceptible Staphylococcus aureus infection as the cause of diseases classified elsewhere; R26.81 Unsteadiness on feet; G30.9 Alzheimer's disease, unspecified; L03.115 Cellulitis of right lower limb; I50.9 Heart failure, unspecified; M10.9 Gout, unspecified; E11.8 Type 2 diabetes mellitus with unspecified complications; M19.90 Unspecified osteoarthritis, unspecified site; M79.89 Other specified soft tissue disorders; I10 Essential (primary) hypertension; L03.116 Cellulitis of left lower limb

== ENCOUNTER 2021-10-03 10:12 | Inpatient (IN) ==
[2021-10-03] MEDS ORDERED: NS 500 ML IV 500 ML IV ONE ×2 (10:28→10:31)
--- NOTE | 2021-10-03 10:34 | DR.GENAD ---
HPI Time Seen Time Seen by Provider: 10/03/21 10:20 Complaint/Symptoms Chief Complaint Doctors Comments: 71 y/o male brought in by EMS for evaluation. + generalized weakness since yesterday, states unable to walk due to bilateral leg weakness. Has h/o chronic back/knee issues. Is on chronic narcotic pain med for pain. Denies recent injury, illness. + slight lightheaded with standing. Denies headache, chest pain, dyspnea, fever, chills, nausea, vomiting, diarrhea or urinary issues. Decreased urination since yesterday. COVID-19 Coronavirus risk:travel/contact w/high risk person: No Has patient experienced Coronavirus symptoms: No Nurses notes reviewed Nurses Notes Review: Yes Source History Provided: Patient and EMS Mode of Arrival Mode of Arrival: EMS PMH PMH Past Medical History: Alzheimers, Arthritis, Diabetes, Gout and Hypertension Past Surgical History: No Family History Family Medical History: Diabetes Mellitus, Cancer, Heart Failure and Hypertension Social History Do you use any recreational Drugs:: No ROS Review of Systems Constitutional: Weakness Eyes: No Symptoms Reported ENTM: No Symptoms Reported Respiratoy: No Symptoms Reported Cardiovascular: No Symptoms Reported Gastrointestinal/Abdominal: No Symptoms Reported Genitourinary: No Symptoms Reported Neurological: Weakness and Dizziness Musculoskeletal: See HPI Integumentary: No Symptoms Reported Hematologic/Lymphatic: No Symptoms Reported Psychiatric: No Symptoms Reported All Other Systems: Reviewed and Negative PE Vital Signs Vitals: Temperature 98.6 F Pulse Rate 92 Respiratory Rate 18 Blood Pressure [Right Arm] 142/65 Blood Pressure 123/58 O2 Sat by Pulse Oximetry 94 General Limitations: No Limitations General Appearance: Alert and In No Apparent Distress Head Head Exam: Normal Inspection Eyes Eye exam: PERRL and EOMI ENT ENT Exam: Mucous Membranes Moist Throat Exam: Normal Inspection Neck Neck Exam: Normal Inspection Chest Chest Inspection: Normal Inspection Respiratory Respiratory Exam: Normal Lung Sounds Bilat; negative Accessory Muscle Use and Respiratory Distress Respiratory Exam: Bilateral: Clear to Auscultation Cardiovascular Cardiovascular Exam: Regular Rate, Normal Rhythm and Normal Heart Sounds Abdominal Exam Abdominal Exam: Normal Bowel Sounds and Soft; negative Tenderness Extremities Extremities Exam: Normal Inspection, Full ROM and Tenderness (with left knee flexion, ligaments intact, no effusion. Distal NV intact.) Back Back Exam: Normal Inspection; negative Tenderness Neurologic Neurological Exam: Alert, Oriented X3 and CN II-XII Intact; negative Motor Sensory Deficit Psychiatric Psychiatric Exam: Normal Affect and Normal Mood Skin Skin Exam: Warm and Dry MDM Differential Diagnosis Differential Diagnosis: dehydration, electrolyte abn, spinal stenosis COURSE Treatment Treatment: 71 y/o male presents with bilateral leg weakness since yesterday. Denies recent trauma. Does have chronic back/knee problems. No recent illness. Daughter called in to say he got over heated last week, hasn't bounced back. PE benign. Pt able to lift and maintain both legs off bed. No obvious neuro deficits. W/u initiated. Givne IV fluids. 1253 - W/u shows elevated Cr 3.47, prior Cr normal, c/w acute renal injury/dehydration. Discussed with his MD, Dr Fitzpatrick, will admit for further IV fluids. ROR Labs Reviewed Laboratory Results Reviewed?: Yes Result Diagrams: 10/03/21 11:21 10/03/21 11:21 Laboratory: WBC 6.8 X10^3/uL (3.6-10.0) 10/03/21 11:21 RBC 4.05 X10^6/uL (4.7-6.0) L 10/03/21 11:21 Hgb 12.7 g/dL (13.5-18.0) L 10/03/21 11:21 Hct 37.4 % (42.0-54.0) L 10/03/21 11:21 MCV 92.3 fL (80.0-100.0) 10/03/21 11:21 MCH 31.3 pg (27.0-34.0) 10/03/21 11:21 MCHC 33.9 g/dL (33.0-35.0) 10/03/21 11:21 RDW 14.0 % (11.6-16.5) 10/03/21 11:21 Plt Count 138 X10^3/uL (150.0-450.0) L 10/03/21 11:21 MPV 9.0 fL (7.4-11.0) 10/03/21 11:21 Neut % (Auto) 78.4 % (42.0-75.0) H 10/03/21 11:21 Lymph % (Auto) 13.4 % (21.0-51.0) L 10/03/21 11:21 [place] % (Auto) 6.9 % (0.0-13.0) 10/03/21 11:21 Eos % (Auto) 0.8 % (0.9-2.9) L 10/03/21 11:21 Baso % (Auto) 0.5 % (0.2-1.0) 10/03/21 11:21 Neut # (Auto) 5.3 x10^3/uL (2.2-4.8) H 10/03/21 11:21 Lymph # (Auto) 0.9 X10^3/uL (1.3-2.9) L 10/03/21 11:21 [place] # (Auto) 0.5 x10^3/uL (0.3-0.8) 10/03/21 11:21 Eos # (Auto) 0.1 x10^3/uL (0.0-0.2) 10/03/21 11:21 Baso # (Auto) 0.0 X10^3/uL (0.0-0.1) 10/03/21 11:21 Absolute Nucleated RBC 0.1 /100WBC 10/03/21 11:21 Sodium 141 mmol/L (136-145) 10/03/21 11:21 Corrected Sodium 141 mmol/L (136-145) 10/03/21 11:21 Potassium 5.4 mmol/L (3.5-5.1) H 10/03/21 11:21 Chloride 111 mmol/L (98-107) H 10/03/21 11:21 Carbon Dioxide 20.9 mmol/L (21-32) L 10/03/21 11:21 BUN 57 mg/dL (7-18) H 10/03/21 11:21 Creatinine 3.47 mg/dL (0.70-1.30) H 10/03/21 11:21 Est GFR (MDRD) Af Amer 23 (>60) L 10/03/21 11:21 Est GFR (MDRD) Non-Af 19 (>60) L 10/03/21 11:21 Glucose 111 mg/dL (65-99) H 10/03/21 11:21 Calcium 8.8 mg/dL (8.5-10.1) 10/03/21 11:21 Corrected Calcium 9.4 mg/dL (8.5-10.1) 10/03/21 11:21 Total Bilirubin 0.70 mg/dL (0.2-1.0) 10/03/21 11:21 AST 10 Units/L (15-37) L 10/03/21 11:21 ALT 15 Units/L (12-78) 10/03/21 11:21 Alkaline Phosphatase 128 Units/L (46-116) H 10/03/21 11:21 Creatine Kinase 193 Units/L (39-308) 10/03/21 11:21 CK-MB (CK-2) 1.1 ng/mL (0-4.0) 10/03/21 11:21 CK/CKMB % Calc 0.6 % (<4) 10/03/21 11:21 Troponin I High Sens 10.0 ng/L (4.0-60.0) 10/03/21 11:21 C-Reactive Protein 86.80 mg/L (0-3.0) H 10/03/21 11:21 Total Protein 6.8 g/dL (6.4-8.2) 10/03/21 11:21 Albumin 3.3 g/dL (3.4-5.0) L 10/03/21 11:21 Globulin 3.5 g/dL (2.5-4.5) 10/03/21 11:21 Albumin/Globulin Ratio 0.9 Ratio (1.1-2.1) L 10/03/21 11:21 Lipase 50 Units/L (73-393) L 10/03/21 11:21 Specimen Type Random urine 10/03/21 11:04 Urine Color Yellow (YELLOW) 10/03/21 11:04 Urine Appearance Clear (CLEAR) 10/03/21 11:04 Urine pH 5.0 (5.0 - 8.0) 10/03/21 11:04 Ur Specific [place] 1.020 (1.000-1.030) 10/03/21 11:04 Urine Protein Negative (NEGATIVE) 10/03/21 11:04 Urine Glucose (UA) Negative (NEGATIVE) 10/03/21 11:04 Urine Ketones Negative (NEGATIVE) 10/03/21 11:04 Urine Blood Negative (NEGATIVE) 10/03/21 11:04 Urine Nitrite Negative (NEGATIVE) 10/03/21 11:04 Urine Bilirubin Negative (NEGATIVE) 10/03/21 11:04 Urine Urobilinogen Normal (NORMAL) 10/03/21 11:04 Ur Leukocyte Esterase Negative (NEGATIVE) 10/03/21 11:04 SARS-CoV-2 (PCR) Negative (NEGATIVE) 10/03/21 11:36 Other Results Comments: Markedly elevated Cr 3.47 (normal Cr in the past). XRAY XRAY Interpreted by: Radiologist X-ray Results: CT brain with chronic atrophy. 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 Opioid Opioid Risk Tool Age (Dwight box if 16-45): No History of Preadolescent Sexual Abuse: No Total: 0 Total Score Risk Category: Low Risk Copyright: [employer] predicting aberrant behaviors Diagnosis Discharge Problem: Acute nontraumatic kidney injury
[2021-10-03 11:14] LABS: BILIRUBIN,URINE NEGATIVE (NEGATIVE); BLOOD/HEMOGLOBIN,URINE NEGATIVE (NEGATIVE); GLUCOSE, URINE NEGATIVE (NEGATIVE); KETONES,URINE NEGATIVE (NEGATIVE); LEUKOCYTE ESTERASE ,URINE NEGATIVE (NEGATIVE); NITRITES,URINE NEGATIVE (NEGATIVE); PROTEIN,URINE NEGATIVE (NEGATIVE); UROBILINOGEN,URINE NORMAL (NORMAL)
[2021-10-03 11:16] LABS: APPEARANCE,URINE CLEAR (CLEAR); COLOR,URINE YELLOW (YELLOW)
--- NOTE | 2021-10-03 11:29 | CT ---
HISTORYLower extremity weaknessSTUDYCT head without contrastTechnique: Axial noncontrast images with coronal and sagittal reformats. Dose reduction procedures were used with mA/kv adjusted for body size.COMPARISONNoneFINDINGSThe ventricles are normal in size shape and position. There is slight decreased attenuation in the periventricular white matter suggestive of small vessel vascular disease. There is cortical atrophy present likely age related. There are no focal areas of abnormal attenuation to suggest recent or remote CVA, hemorrhage, inflammation, mass lesion, or extra-axial fluid collection. The visualized sinuses are clear. The calvarium is intact. If acute CVA is a strong clinical consideration MRI with diffusion imaging would be of further diagnostic value and should be obtained.IMPRESSIONNo definite acute intracranial abnormality identified. See recommendation aboveCortical atrophy likely age relatedSmall-vessel diseaseElectronically signed by: CATHI TREVINO (Oct 03, 2021 11:27:58)
--- NOTE | 2021-10-03 11:47 | CT ---
HISTORYLower extremity weaknessSTUDYCT lumbar spine without contrastTechnique: Axial noncontrast images with coronal and sagittal reformats. Dose reduction procedures were used with mA/kv adjusted for body size.[id number]/01/2021, MRI lumbar spine 04/04/2020FINDINGSThe alignment is normal with the exception of minimal anterolisthesis L3 on L4. The vertebral bodies are of average height with the exception of fall a compression fracture of T12 fall not significantly changed in appearance from the prior examination 2020 and traumatic in origin. The pedicles, spinous processes, and posterior elements appear intact as do the sacrum, coccyx, and SI joints. The disc levels are evaluated as follows:T11-12 level: There is disc degeneration with vacuum phenomenon present. Concentric disc bulging effaces the thecal sac and contributes to mild lateral recess narrowing bilaterally. Bilateral facet arthropathy is present.T12-L1 level: There is severe disc degeneration with vacuum phenomenon present. There is broad-based disc protrusion which effaces the thecal sac and contributes along with spondylitic change and facet arthropathy to canal stenosis with relatively severe lateral recess and foraminal narrowing on the left and slightly less but still severe lateral recess and foraminal narrowing on the right. This was noted on the prior MRI.L1-2 level: There is severe disc degeneration with loss of height and vacuum phenomenon present. Broad-based disc bulging effaces the thecal sac and contributes along with spondylitic change and facet arthropathy to moderately severe lateral recess and foraminal narrowing left greater than right.L2-3 level: Concentric disc bulging effaces the thecal sac and contributes along with spondylitic change and bilateral facet arthropathy to lateral recess and foraminal narrowing bilaterally not as severe as at the levels noted above.L3-4 level: There is slight anterolisthesis L3 on L4. There is disc degeneration with vacuum phenomenon present. Concentric disc bulging contributes along with ligamentous hypertrophy spondylitic change and facet arthropathy to lateral recess and foraminal narrowing bilaterally approximating that of the level above but not as severe as the 2 levels above that.L4-5 level: There is disc degeneration with loss of height and vacuum phenomenon present. Concentric disc bulging contributes along with ligamentous hypertrophy and facet arthropathy to a canal stenosis with lateral recess and foraminal narrowing bilaterally of a moderate degree.L5-S1 level: Mild broad-based disc bulging does not abut or displace the S1 nerve roots. Facet arthropathy contributes to mild to moderate lateral recess and foraminal narrowing left greater than right.Considering the history of lower extremity weakness evaluation with MRI is recommended for comparison with the prior MRI. Particular attention should be paid to the T12-L1 level.IMPRESSIONAs aboveRecommendation: MRI lumbar spine for comparison with the MRI 04/04/2020 particularly considering the history of lower extremity weakness. If this weakness is acute, MRI should be obtained as soon as possible.Electronically signed by: CATHI TREVINO (Oct 03, 2021 11:45:42)
[2021-10-03 11:48] LABS: BASOPHILS % (AUTO) 0.5 % (0.2-1.0); EOSINOPHILS # (AUTO) 0.1 x10^3/uL (0.0-0.2); EOSINOPHILS % (AUTO) 0.8 % (0.9-2.9); HEMATOCRIT 37.4 % (42.0-54.0); HEMOGLOBIN 12.7 g/dL (13.5-18.0); LYMPHOCYTES # (AUTO) 0.9 X10^3/uL (1.3-2.9); LYMPHOCYTES % (AUTO) 13.4 % (21.0-51.0); MEAN CORPUSCULAR HEMOGLOBIN 31.3 pg (27.0-34.0); MEAN CORPUSCULAR HGB CONC 33.9 g/dL (33.0-35.0); MEAN CORPUSCULAR VOLUME 92.3 fL (80.0-100.0); MONOCYTES # (AUTO) 0.5 x10^3/uL (0.3-0.8); MONOCYTES % (AUTO) 6.9 % (0.0-13.0); NEUTROPHILS # (AUTO) 5.3 x10^3/uL (2.2-4.8); NEUTROPHILS % (AUTO) 78.4 % (42.0-75.0); RED BLOOD COUNT 4.05 X10^6/uL (4.7-6.0); WHITE BLOOD COUNT 6.8 X10^3/uL (3.6-10.0)
--- NOTE | 2021-10-03 11:55 | RAD ---
HISTORYWEAKNESSSTUDYCHEST, 1 VIEWCOMPARISONNoneFINDINGSThe lungs are clear. No pneumothorax or significant effusion.Cardiomegaly is present, even accounting for magnification. Epicardial fat pad along the right heart border.Bones are unremarkable. []IMPRESSION1. Cardiomegaly2. No acute findingElectronically signed by: Gigi Holder (Oct 03, 2021 11:52:25)
[2021-10-03 12:09] LABS: ALBUMIN 3.3 g/dL (3.4-5.0); CALCIUM 8.8 mg/dL (8.5-10.1); CARBON DIOXIDE 20.9 mmol/L (21-32); CKMB % 0.6 % (<4); COR CA(FOR HYPOALB) 9.4 mg/dL (8.5-10.1); CREATINE KINASE MB 1.1 ng/mL (0-4.0); CREATININE 3.47 mg/dL (0.70-1.30); TOTAL PROTEIN 6.8 g/dL (6.4-8.2)
[2021-10-03] MEDS: NEURONTIN CAP 300 MG PO SCH ×2 (15:44→22:00)
[2021-10-03] MEDS: NS 1,000 ML IV 1,000 ML IV SCH ×2 (15:45→23:45)
[2021-10-03] MEDS ORDERED: GLUCOPHAGE ONE (20:30)
[2021-10-03] MEDS: NORVASC TAB 5 MG PO SCH (20:43)
[2021-10-03] MEDS: GLUCOPHAGE PO SCH ×2 (20:43→20:52)
[2021-10-04] MEDS: ULTRAM PO PRN (03:39)
[2021-10-04 04:49] LABS: BASOPHILS % (AUTO) 0.3 % (0.2-1.0); EOSINOPHILS # (AUTO) 0.1 x10^3/uL (0.0-0.2); EOSINOPHILS % (AUTO) 1.2 % (0.9-2.9); HEMATOCRIT 33.2 % (42.0-54.0); HEMOGLOBIN 11.4 g/dL (13.5-18.0); LYMPHOCYTES # (AUTO) 1.4 X10^3/uL (1.3-2.9); LYMPHOCYTES % (AUTO) 22.2 % (21.0-51.0); MEAN CORPUSCULAR HEMOGLOBIN 31.1 pg (27.0-34.0); MEAN CORPUSCULAR HGB CONC 34.3 g/dL (33.0-35.0); MEAN CORPUSCULAR VOLUME 90.8 fL (80.0-100.0); MEAN PLATELET VOLUME 9.3 fL (7.4-11.0); MONOCYTES # (AUTO) 0.6 x10^3/uL (0.3-0.8); MONOCYTES % (AUTO) 8.5 % (0.0-13.0); NEUTROPHILS # (AUTO) 4.4 x10^3/uL (2.2-4.8); NEUTROPHILS % (AUTO) 67.8 % (42.0-75.0); RED BLOOD COUNT 3.66 X10^6/uL (4.7-6.0); RED CELL DISTRIBUTION WIDTH 13.8 % (11.6-16.5); WHITE BLOOD COUNT 6.5 X10^3/uL (3.6-10.0)
[2021-10-04 05:05] LABS: ALANINE AMINOTRANSFERASE 13 Units/L (12-78); ALKALINE PHOSPHATASE 115 Units/L (46-116); ASPARTATE AMINO TRANSFERASE 11 Units/L (15-37); BLOOD UREA NITROGEN 47 mg/dL (7-18); CALCIUM 8.6 mg/dL (8.5-10.1); CARBON DIOXIDE 23.8 mmol/L (21-32); CHLORIDE 112 mmol/L (98-107); COR CA(FOR HYPOALB) 9.4 mg/dL (8.5-10.1); CREATININE 2.35 mg/dL (0.70-1.30); SODIUM 142 mmol/L (136-145); TOTAL PROTEIN 6.2 g/dL (6.4-8.2); eGFR NON BLACK RACES 29 (>60)
[2021-10-04] MEDS: NS 1,000 ML IV 1,000 ML IV SCH ×2 (06:10→09:42)
[2021-10-04] MEDS: NEURONTIN CAP 300 MG PO SCH ×3 (06:10→21:07)
[2021-10-04] MEDS ORDERED: GLUCOPHAGE ONE (08:57)
[2021-10-04] MEDS: PriLOSEC PO SCH (09:38)
[2021-10-04] MEDS: GLUCOPHAGE PO SCH ×2 (09:39→21:07)
[2021-10-04] MEDS: ZOCOR TAB 40 MG PO SCH (09:39)
[2021-10-04] MEDS: ACTOS PO SCH (09:40)
[2021-10-04] MEDS: GLUCOTROL XL 24-HR PO SCH (09:40)
[2021-10-04] MEDS: PLAVIX PO SCH (09:41)
[2021-10-04] MEDS: SYNTHROID 100 mcg TAB PO SCH (09:41)
[2021-10-04] MEDS ORDERED: ZOFRAN INJ 4 MG VIAL ONE (10:21)
--- NOTE | 2021-10-04 10:22 | DR.H&P ---
H&P - History & Physical for Day of: H&P Date: 10/03/21 - Chief Complaint Chief Complaint: GENERALIZED WEAKNESS, DIZZINESS, AND SEVERE WEAKNESS TO BILATERAL LOWER EXTREMITIES. - History of Present Illness History of Present Illness: IS A 71 YEAR OLD PATIENT OF OURS. HE PRESENTED TO THE ER VIA EMS FOR EVALUATION DUE TO COMPLAINTS OF INCREASED GENERALIZED WEAKNESS, DIZZINESS, AND SEVERE WEAKNESS TO BILATERAL LOWER EXTREMITIES. PATIENT REPORTS THAT HE HAS BEEN UNABLE TO WALK THIS MORNING DUE TO SEVERE LEG WEAKNESS. HE DENIES RECENT INJURY, ILLNESS, HEADACHE, CHEST PAIN, SOB, FEVER, CHILLS, OR N/V/D. HE DOES ADMIT TO DECREASED URINARY OUTPUT SINCE ONE DAY PRIOR. HIS PMH INCLUDES: ALZHEIMERS, ARTHRITIS, DM II, GOUT, HTN, LUMBAR DDD. ON EXAMINATION, HE WAS ABLE TO LIFT AND MAINTAIN BLOTH LEGS OFF OF THE BED. NO OBVIOUS NEURO DEFICITS NOTED. ON ARRIVAL, HIS VITALS WERE 98.6-98-18-96%-158/67. LABS WERE OBTAINED. WBC 6.8, RBC 4.05, HGB 12.7, HCT 37.4, PLT COUNT 138, SODIUM 141, POTASSIUM 5.4, CHLORIDE 111, CA RBON DIOXIDE 20.9, BUN 57, CREATININE 3.47, GLUCOSE 111, CALCIUM 8.8, AST 10, ALT 15, ALK PHOS 128, CRP 86.80, TOTAL PROTEIN 6.8, ALBUMIN 3.3, LIPASE 50. CARDIAC ENZYMES WERE WITHIN NORMAL LIMITS. URINALYSIS WAS UNREMARKABLE. COVID-19 NEGATIVE. A CHEST XRAY WAS OBTAINED AND REVEALED: 1. Cardiomegaly 2. No acute finding. A BRAIN CT WAS OBTAINED AND REVEALED: No definite acute intracranial abnormality identified. Cortical atrophy likely age related. Small-vessel disease. A LUMBAR SPINE CT WAS OBTAINED. IT REVEALED MULTILEVEL DDD, SEVERAL BULGING DISC, OLD COMPRESSION FX OF T12 NOT SIGNIFICANTLY CHANGED SINCE 08/22. RADIOLOGIST RECOMMENDED: MRI lumbar spine for comparison with the MRI 04/04/2020 particularly considering the history of lower extremity weakness. If this weakness is acute, MRI should be obtained as soon as possible. IN THE ER, HE WAS GIVEN A NORMAL SALINE BOLUS. HE WAS ADMITTED TO THE HOSPITAL INPATIENT STATUS FOR FURTHER EVALUATION AND TREATMENT OF ACUTE NON TRAUMATIC RENAL INJURY AND IN TRACTABLE BACK PAIN. HE WAS STARTED ON NORMAL SALINE WITH 1 AMP BICARB IN EACH LITER AT 125 ML/HR, OTBS ACHS, NORCO 10/325MG PO QID PRN, AND HIS HOME MEDICATIONS WITH THE EXCEPTION OF ALLOPURINOL AND MELOXICAM WERE RESUMED. WE WILL OBTAIN A MRI OF THE LUMBAR SPINE DUE TO ACUTE SEVERE LOWER EXTREMITY WEAKNESS. OTHERWISE, WE PLAN TO FOLLOW-UP WITH AM LABS AND CONTINUE TO MONITOR. TIME SPENT ON CLINICAL ASSESSMENT, REVIEWING LABS AND IMAGING, DECISION MAKING, AND DOCUMENTATION GREATER THAN 75 MINUTES. - Past Medical History Past Medical History: Hypertension, Diabetes, Alzheimers, Arthritis, Gout - Family History Family Medical History: Diabetes Mellitus, Cancer - Social History Does patient currently use any type of tobacco product: No Have you used tobacco products in the last 12 months: No Type of Tobacco Use: None Does any household member use tobacco: No Alcohol Use: None Drug Use: None - Medications Home Medications: No Known Drug Allergies Allergy (Verified 05/30/17 14:17) CONTINUE taking the following medications gabapentin 300 mg PO TID 10/03/21 [History] pioglitazone 15 mg PO DAILY 10/03/21 [History] tramadol 50 mg PO QID PRN 10/03/21 [History] - Review of Systems Constitutional: Weakness Eyes: No Symptoms Reported ENT: No Symptoms Reported Respiratory: No Symptoms Reported Cardiovascular: Light Headedness Gastrointestinal: No Symptoms Reported Genitourinary: No Symptoms Reported Musculoskeletal: See HPI, Back Pain, Other (SEVERE LOWER EXTREMITY WEAKNESS ) Neurological: See HPI, Weakness - Physical Exam Vital Signs: Temperature 98.1 F Pulse Rate [Left Radial] 86 Pulse Rate 90 Respiratory Rate 20 Blood Pressure [Right Arm] 144/65 Blood Pressure 139/75 O2 Sat by Pulse Oximetry 94 Oriented: Normal Eyes: Normal Ear: Normal Nose: Normal Throat: Normal Respiratory: Diminished Throughout Cardiovascular: Normal : Normal Auscultation: Bowel Sounds: Normal Palpation: Normal Tenderness: Normal Skin: Decreased Turgur Musculoskeletal: Leg (BILATERAL LEG WEAKNESS ), Back:Thoracic, Back:Lumbar, Tender, Motor Deficit, Instability Psychiatric: Normal Mood Description: Calm Affect: Normal Speech Pattern: Clear - Assessment/Plan (1) Acute nontraumatic kidney injury Status: Acute Plan: ADMIT, NORMAL SALINE WITH 1 AMP BICARB IN EACH LITER AT 125 ML/HR, OTBS ACHS, NORCO 10/325MG PO QID PRN, AND HIS HOME MEDICATIONS WITH THE EXCEPTION OF ALLOPURINOL AND MELOXICAM WERE RESUMED. (2) Generalized weakness Status: Acute (3) Lower extremity weakness Qualifiers: Laterality: bilateral Qualified Code(s): R29.898 - Other symptoms and signs involving the musculoskeletal system Status: Acute Plan: OBTAIN LUMBAR MRI (4) Intractable low back pain Status: Acute - Review H&P Reviewed: Yes Patient was examined?: Yes - Allergies Allergies/Adverse Reactions: Allergies Allergy/AdvReac Type Severity Reaction Status Date / Time No Known Drug Allergies Allergy Verified 05/30/17 14:17
[2021-10-04] MEDS ORDERED: ZOFRAN INJ 4 MG VIAL IVP ONE (10:25)
--- NOTE | 2021-10-04 13:09 | MRI ---
HISTORYleg weaknessSTUDYMRI L SPINE W/O CONTRASTCOMPARISONCT lumbar spine dated 10/03/2021 and MRI lumbar spine dated 04/04/2020TECHNIQUEMultiplanar multi sequences images through the lumbar spine were performed without contrast.FINDINGSThere are 5 ozr-wxp-flqsxws lumbar type vertebral bodies. There is again seen an old compression fracture of T12. The conus medullaris is ending at T12-L1 since prior study there appears to be mild edema of the inferior aspect of the conus, there has been interval worsening of the spinal canal stenosis at T12-L1 with interval increase in size of the posterior disc osteophyte with a right paracentral component and new bilateral severe neural foraminal stenosis, there is severe narrowing of the spinal canal at this level. No evidence of acute fractures. There is mild edema of L1-L2 overall unchanged since prior.T12 -- L1: Previously seen superior extrusion is no longer present, there has been interval increase of the posterior disc osteophyte/protrusion with critical narrowing of the spinal canal and bilateral severe neural foraminal stenosisL1 -- L2: There is a large broad-based disc osteophyte with severe narrowing of the spinal canal, there is moderate facet hypertrophy, there are lateral disc osteophyte with bilateral mujjbxyw-th-jrcmjy narrowing of the neural foramina unchanged since prior.L2 -- L3: There is a broad-based disc osteophyte and severe facet hypertrophy, there is yexdczio-ww-cijzmv narrowing of the spinal canal, there are lateral disc osteophyte with cjeurgif-ls-rxytpl right and mild left neural foraminal stenosis.L3 -- L4: There is 2 millimeters anterolisthesis of L3 on L4 and moderate facet hypertrophy, there is xwunpxan-bs-kusuhg narrowing of the spinal canal and mild bilateral neural foraminal stenosis.L4 -- L5: There is a broad-based disc osteophyte and moderate facet hypertrophy, there are lateral disc osteophyte with severe right and tvzjadxs-qu-vrifgy left neural foraminal stenosis, there is mild narrowing of the spinal canal.L5 -- S1: There is a broad-based disc osteophyte and mild facet hypertrophy, no spinal canal or neural foraminal stenoses.No focal dilatation of the abdominal aorta, no retroperitoneal masses. No abnormal signal in the sacroiliac joints.IMPRESSIONSuspected interval worsening of disc disease at the level of T12-L1 with worsening spinal canal stenosis due to interval increase in size of posterior disc osteophyte with severe/critical narrowing of the spinal canal and suspected mass effect in the tip of the conus with questionable mild edema. Bilateral severe neural foraminal stenosis with interval worsening since prior study. Previously superior extrusion is no longer present.Old compression fracture of T12 with osteonecrosis along the disc space at [id number] spinal canal stenosis dggpxnhx-pg-vyogrm at L1-L2, L2-L3 and L3-L4.Electronically signed by: Laura Jean (Oct 04, 2021 13:07:59)
[2021-10-04] MEDS: NS 1,000 ML IV 1,000 ML with SODIUM BICARBONATE 8.4% INJ ADULT 50 ML IV SCH ×4 (13:26→23:20)
[2021-10-04] MEDS: NORVASC TAB 5 MG PO SCH (21:08)
[2021-10-04] MEDS: NORCO 10/325 TAB PO PRN (21:09)
[2021-10-05] MEDS: NS 1,000 ML IV 1,000 ML with SODIUM BICARBONATE 8.4% INJ ADULT 50 ML IV SCH ×6 (01:43→19:45)
[2021-10-05] MEDS: NEURONTIN CAP 300 MG PO SCH ×3 (05:38→21:10)
[2021-10-05 05:55] LABS: BASOPHILS % (AUTO) 0.6 % (0.2-1.0); EOSINOPHILS # (AUTO) 0.2 x10^3/uL (0.0-0.2); EOSINOPHILS % (AUTO) 3.3 % (0.9-2.9); HEMATOCRIT 31.1 % (42.0-54.0); HEMOGLOBIN 10.6 g/dL (13.5-18.0); LYMPHOCYTES # (AUTO) 1.5 X10^3/uL (1.3-2.9); LYMPHOCYTES % (AUTO) 27.1 % (21.0-51.0); MEAN CORPUSCULAR HEMOGLOBIN 31.1 pg (27.0-34.0); MEAN CORPUSCULAR VOLUME 91.3 fL (80.0-100.0); MEAN PLATELET VOLUME 9.1 fL (7.4-11.0); MONOCYTES # (AUTO) 0.4 x10^3/uL (0.3-0.8); MONOCYTES % (AUTO) 7.5 % (0.0-13.0); NEUTROPHILS # (AUTO) 3.4 x10^3/uL (2.2-4.8); NEUTROPHILS % (AUTO) 61.5 % (42.0-75.0); RED BLOOD COUNT 3.41 X10^6/uL (4.7-6.0); RED CELL DISTRIBUTION WIDTH 13.9 % (11.6-16.5); WHITE BLOOD COUNT 5.5 X10^3/uL (3.6-10.0)
[2021-10-05 06:07] LABS: ALANINE AMINOTRANSFERASE 7 Units/L (12-78); ALBUMIN 2.5 g/dL (3.4-5.0); ALKALINE PHOSPHATASE 110 Units/L (46-116); ASPARTATE AMINO TRANSFERASE 10 Units/L (15-37); BLOOD UREA NITROGEN 29 mg/dL (7-18); CARBON DIOXIDE 27.7 mmol/L (21-32); COR CA(FOR HYPOALB) 9.2 mg/dL (8.5-10.1); CREATININE 1.68 mg/dL (0.70-1.30); SODIUM 146 mmol/L (136-145); TOTAL PROTEIN 5.4 g/dL (6.4-8.2); eGFR NON BLACK RACES 43 (>60)
[2021-10-05 06:14] LABS: CHLORIDE 115 mmol/L (98-107)
[2021-10-05] MEDS ORDERED: GLUCOPHAGE ONE (08:12)
[2021-10-05] MEDS: ACTOS PO SCH (10:01)
[2021-10-05] MEDS: ZOCOR TAB 40 MG PO SCH (10:01)
[2021-10-05] MEDS: SYNTHROID 100 mcg TAB PO SCH (10:02)
[2021-10-05] MEDS: PriLOSEC PO SCH (10:02)
[2021-10-05] MEDS: GLUCOTROL XL 24-HR PO SCH (10:03)
[2021-10-05] MEDS: GLUCOPHAGE PO SCH ×2 (10:04→21:05)
[2021-10-05] MEDS: PLAVIX PO SCH (10:05)
[2021-10-05] MEDS: NORVASC TAB 5 MG PO SCH (21:10)
[2021-10-05] MEDS: ULTRAM PO PRN (21:11)
[2021-10-06] MEDS: NS 1,000 ML IV 1,000 ML with SODIUM BICARBONATE 8.4% INJ ADULT 50 ML IV SCH ×8 (02:23→20:54)
[2021-10-06 05:16] LABS: BASOPHILS % (AUTO) 0.4 % (0.2-1.0); EOSINOPHILS # (AUTO) 0.2 x10^3/uL (0.0-0.2); EOSINOPHILS % (AUTO) 2.4 % (0.9-2.9); HEMATOCRIT 33.1 % (42.0-54.0); HEMOGLOBIN 11.3 g/dL (13.5-18.0); LYMPHOCYTES # (AUTO) 1.4 X10^3/uL (1.3-2.9); LYMPHOCYTES % (AUTO) 19.4 % (21.0-51.0); MEAN CORPUSCULAR HGB CONC 34.3 g/dL (33.0-35.0); MEAN CORPUSCULAR VOLUME 90.4 fL (80.0-100.0); MEAN PLATELET VOLUME 8.9 fL (7.4-11.0); MONOCYTES # (AUTO) 0.4 x10^3/uL (0.3-0.8); NEUTROPHILS # (AUTO) 5.2 x10^3/uL (2.2-4.8); NEUTROPHILS % (AUTO) 72.8 % (42.0-75.0); RED BLOOD COUNT 3.66 X10^6/uL (4.7-6.0); RED CELL DISTRIBUTION WIDTH 13.9 % (11.6-16.5); WHITE BLOOD COUNT 7.1 X10^3/uL (3.6-10.0)
[2021-10-06 05:24] LABS: ALANINE AMINOTRANSFERASE 7 Units/L (12-78); ALBUMIN 2.6 g/dL (3.4-5.0); ALKALINE PHOSPHATASE 111 Units/L (46-116); ASPARTATE AMINO TRANSFERASE 10 Units/L (15-37); BLOOD UREA NITROGEN 19 mg/dL (7-18); CALCIUM 8.2 mg/dL (8.5-10.1); CARBON DIOXIDE 25.9 mmol/L (21-32); CHLORIDE 113 mmol/L (98-107); COR CA(FOR HYPOALB) 9.3 mg/dL (8.5-10.1); CREATININE 1.37 mg/dL (0.70-1.30); SODIUM 145 mmol/L (136-145); TOTAL PROTEIN 5.7 g/dL (6.4-8.2); eGFR NON BLACK RACES 54 (>60)
[2021-10-06] MEDS: NEURONTIN CAP 300 MG PO SCH ×3 (05:27→21:43)
[2021-10-06] MEDS: GLUCOPHAGE PO SCH ×2 (08:40→21:41)
[2021-10-06] MEDS: ACTOS PO SCH (08:40)
[2021-10-06] MEDS: PriLOSEC PO SCH (08:41)
[2021-10-06] MEDS: PLAVIX PO SCH (08:41)
[2021-10-06] MEDS: GLUCOTROL XL 24-HR PO SCH (08:41)
[2021-10-06] MEDS: ZOCOR TAB 40 MG PO SCH (08:42)
[2021-10-06] MEDS: SYNTHROID 100 mcg TAB PO SCH (08:42)
[2021-10-06] MEDS: NORVASC TAB 5 MG PO SCH (21:43)
[2021-10-06] MEDS: NORCO 10/325 TAB PO PRN (21:44)
[2021-10-07] MEDS: TYLENOL 325 MG TAB PO PRN ×2 (00:18→12:10)
[2021-10-07] MEDS: NS 1,000 ML IV 1,000 ML with SODIUM BICARBONATE 8.4% INJ ADULT 50 ML IV SCH ×6 (00:53→22:02)
[2021-10-07] MEDS ORDERED: NS 1,000 ML IV 1,000 ML ONE (05:13)
[2021-10-07] MEDS: NEURONTIN CAP 300 MG PO SCH ×3 (05:13→21:00)
[2021-10-07 05:27] LABS: BASOPHILS # (AUTO) 0.1 X10^3/uL (0.0-0.1); BASOPHILS % (AUTO) 0.5 % (0.2-1.0); HEMATOCRIT 34.4 % (42.0-54.0); HEMOGLOBIN 11.8 g/dL (13.5-18.0); LYMPHOCYTES # (AUTO) 0.8 X10^3/uL (1.3-2.9); LYMPHOCYTES % (AUTO) 4.7 % (21.0-51.0); MEAN CORPUSCULAR HEMOGLOBIN 30.8 pg (27.0-34.0); MEAN CORPUSCULAR HGB CONC 34.2 g/dL (33.0-35.0); MEAN CORPUSCULAR VOLUME 89.9 fL (80.0-100.0); MONOCYTES # (AUTO) 0.4 x10^3/uL (0.3-0.8); MONOCYTES % (AUTO) 2.3 % (0.0-13.0); NEUTROPHILS # (AUTO) 15.8 x10^3/uL (2.2-4.8); NEUTROPHILS % (AUTO) 92.5 % (42.0-75.0); RED BLOOD COUNT 3.83 X10^6/uL (4.7-6.0); RED CELL DISTRIBUTION WIDTH 14.3 % (11.6-16.5)
[2021-10-07 05:39] LABS: ALANINE AMINOTRANSFERASE 13 Units/L (12-78); ALBUMIN 2.6 g/dL (3.4-5.0); ALKALINE PHOSPHATASE 105 Units/L (46-116); ASPARTATE AMINO TRANSFERASE 13 Units/L (15-37); BLOOD UREA NITROGEN 14 mg/dL (7-18); CALCIUM 7.9 mg/dL (8.5-10.1); CARBON DIOXIDE 27.3 mmol/L (21-32); CHLORIDE 112 mmol/L (98-107); CREATININE 1.49 mg/dL (0.70-1.30); SODIUM 145 mmol/L (136-145); TOTAL PROTEIN 5.8 g/dL (6.4-8.2); eGFR NON BLACK RACES 49 (>60)
[2021-10-07 05:50] LABS: WHITE BLOOD COUNT 17.1 X10^3/uL (3.6-10.0)
[2021-10-07 05:51] LABS: BAND NEUTROPHILS % 6 % (0-10); PLATELET MORPHOLOGY COMMENT NORMAL (NORMAL)
[2021-10-07] MEDS ORDERED: GLUCOPHAGE ONE (08:52)
[2021-10-07] MEDS ORDERED: ZOFRAN INJ 4 MG VIAL ONE (09:04)
[2021-10-07] MEDS: ZOFRAN INJ 4 MG VIAL IVP PRN ×2 (09:08→09:11)
[2021-10-07] MEDS: ZOCOR TAB 40 MG PO SCH (09:09)
[2021-10-07] MEDS: ACTOS PO SCH (09:09)
[2021-10-07] MEDS: SYNTHROID 100 mcg TAB PO SCH (09:09)
[2021-10-07] MEDS: PriLOSEC PO SCH (09:09)
[2021-10-07] MEDS: NORCO 10/325 TAB PO PRN ×2 (09:09→21:01)
[2021-10-07] MEDS: GLUCOTROL XL 24-HR PO SCH (09:10)
[2021-10-07] MEDS: PLAVIX PO SCH (09:10)
[2021-10-07] MEDS: GLUCOPHAGE PO SCH ×2 (09:11→20:51)
[2021-10-07] MEDS: NS 1,000 ML IV 1,000 ML IV SCH ×3 (13:00→23:00)
[2021-10-07 13:24] LABS: BILIRUBIN,URINE NEGATIVE (NEGATIVE); BLOOD/HEMOGLOBIN,URINE NEGATIVE (NEGATIVE); GLUCOSE, URINE NEGATIVE (NEGATIVE); KETONES,URINE NEGATIVE (NEGATIVE); LEUKOCYTE ESTERASE ,URINE NEGATIVE (NEGATIVE); NITRITES,URINE NEGATIVE (NEGATIVE); PROTEIN,URINE 1+ (NEGATIVE); UROBILINOGEN,URINE NORMAL (NORMAL)
[2021-10-07 13:31] LABS: APPEARANCE,URINE CLEAR (CLEAR); COLOR,URINE YELLOW (YELLOW)
[2021-10-07 13:33] LABS: BACTERIA,URINE TRACE /HPF (NEGATIVE); RBC,URINE 0-2 /HPF (0-3); SQUAMOUS EPITHELIAL CELL,UR FEW /HPF (NEGATIVE)
--- NOTE | 2021-10-07 15:22 | PCM.PROG ---
Progress Note - Progress Note for Day of Date of Exam: 10/07/21 - Subjective Subjective: IS CURRENTLY INPATIENT STATUS FOR TREATMENT OF ACUTE KIDNEY INJURY (NON-TRAUMATIC), GENERALIZED WEAKNESS, AND LOW BACK PAIN. HE HAS DONE WELL OVER THE WEEKEND AND HAS HAD NO APPARENT EVENTS. TODAY, HE IS ALERT AND ORIENTED, LYING IN BED ON MORNING ROUNDS. HE CONTINUES WITH WEAKNESS, ALTHOUGH IMPROVED SINCE ADMISSION. HE DOES CONTINUE TO REPORT INTERMITTENT, CHRONIC LOW BACK PAIN. HE HAD FEVER OF 101.1 THROUGHOUT THE NIGHT. ON EXAMINATION, HEART IS REGULAR IN RATE AND RHYTHM. BILATERAL LUNGS NOTED WITH DIMINISHED LUNG SOUNDS THROUGHOUT. ABDOMEN IS ROUND, SOFT, AND NON-TENDER WITH NORMAL BOWEL SOUNDS NOTED IN ALL QUADRANTS. TRACE LOWER EXTREMITY EDEMA NOTED. HE DENIES ABDOMINAL PAIN, CHEST PAIN, OR ACUTE SHORTNESS OF BREATH. HE DOES ADMIT TO HAVING SHORTNESS OF BREATH SOME IN THE PAST FEW MONTHS, BUT NONE AT THE PRESENT TIME OR SINCE ADMISSION. HIS VITALS THIS MORNING ARE: 100.1-98-20-93%-130/61. HE IS CURRENTLY UTILIZING OXYGEN VIA NASAL CANNULA AT 2 LPM. LABS WERE OBTAINED. WBC INCREASED TO 17.1, RBC 3.83, HGB 11.8, HCT 34.4, PLT COUNT 149, SODIUM 145, POTASSIUM 4.0, CHLORIDE 112, BUN 14, CREATININE 1.49, GLUCOSE 108, CALCIUM 7.9, AST 13, ALT 13, ALK PHOS 105, TOTAL PROTEIN 5.8, ALBUMIN 2.6. HE IS CURRENTLY RECEIVING: NORMAL SALINE WITH 1 AMP BICARB IN EACH LITER AT 125 ML/HR, TYLENOL 650MG PO Q4H PRN, OTBS ACHS, NORCO 10/325MG PO QID PRN, AND HIS HOME MEDICATIONS WITH THE EXCEPTION OF ALLOPURINOL AND MELOXICAM WERE RESUMED. TODAY, WE WILL TEST HIM FOR COVID, INFLUENZA, RSV, AND WILL REPEAT A UA. WE WILL SET UP BLOOD AND URINE CULTURES. WE WILL ALSO OBTAIN A CHEST XRAY. WE WILL START ROCEPHIN 1G IV DAILY. OTHERWISE, WE WILL FOLLOW UP WITH AM LABS AND CONTINUE TO MONITOR. TIME SPENT ON CLINICAL ASSESSMENT, REVIEWING LABS AND IMAGING, DECISION MAKING, AND DOCUMENTATION GREATER THAN 45 MINUTES. - Past Medical Family Social History Past Med/Fam/Surg Hx: No changes since H&P Allergies: Allergies No Known Drug Allergies Allergy (Verified 05/30/17 14:17) - Review of Systems ROS: No change since H&P - Vital Signs and I&O's Vital Signs: Temperature 100.1 F Pulse Rate [Brachial] 98 Pulse Rate [Left Radial] 68 Pulse Rate 90 Respiratory Rate 20 Blood Pressure [Right Arm] 130/61 Blood Pressure 139/75 O2 Sat by Pulse Oximetry 93 Intake and Output: Intake & Output 10/05/21 10/06/21 10/07/21 10/08/21 11:59 11:59 11:59 11:59 Intake Total 1720 / 1720 2420 / 2420 2770 / 2770 Output Total 1350 / 1350 1740 / 1740 1630 / 1630 Balance 370 / 370 680 / 680 1140 / 1140 - Physical Exam Oriented: Normal Eyes: Normal Ear: Normal Nose: Normal Throat: Normal Respiratory: Generalized, Diminished Cardiovascular: Normal : Normal Auscultation: Bowel Sounds: Normal Palpation: Normal Tenderness: Normal Skin: Normal Musculoskeletal: Back:Thoracic, Back:Lumbar, Motor Deficit, Instability Psychiatric: Normal Mood Description: Calm Affect: Normal Speech Pattern: Clear - Laboratory and Diagnostics Result Diagrams: 10/08/21 04:55 10/08/21 04:55 Labs: Laboratory WBC 17.1 X10^3/uL (3.6-10.0) H D 10/07/21 04:50 RBC 3.83 X10^6/uL (4.7-6.0) L 10/07/21 04:50 Hgb 11.8 g/dL (13.5-18.0) L 10/07/21 04:50 Hct 34.4 % (42.0-54.0) L 10/07/21 04:50 MCV 89.9 fL (80.0-100.0) 10/07/21 04:50 MCH 30.8 pg (27.0-34.0) 10/07/21 04:50 MCHC 34.2 g/dL (33.0-35.0) 10/07/21 04:50 RDW 14.3 % (11.6-16.5) 10/07/21 04:50 Plt Count 149 X10^3/uL (150.0-450.0) L 10/07/21 04:50 Plt Count Comment Decreased (ADEQUATE) 10/07/21 04:50 MPV 9.0 fL (7.4-11.0) 10/07/21 04:50 Neut % (Auto) 92.5 % (42.0-75.0) H 10/07/21 04:50 Lymph % (Auto) 4.7 % (21.0-51.0) L 10/07/21 04:50 [place] % (Auto) 2.3 % (0.0-13.0) 10/07/21 04:50 Eos % (Auto) 0.0 % (0.9-2.9) L 10/07/21 04:50 Baso % (Auto) 0.5 % (0.2-1.0) 10/07/21 04:50 Neut # (Auto) 15.8 x10^3/uL (2.2-4.8) H 10/07/21 04:50 Lymph # (Auto) 0.8 X10^3/uL (1.3-2.9) L 10/07/21 04:50 [place] # (Auto) 0.4 x10^3/uL (0.3-0.8) 10/07/21 04:50 Eos # (Auto) 0.0 x10^3/uL (0.0-0.2) 10/07/21 04:50 Baso # (Auto) 0.1 X10^3/uL (0.0-0.1) 10/07/21 04:50 Absolute Nucleated RBC 0.0 /100WBC 10/07/21 04:50 Total Counted 100 10/07/21 04:50 Neutrophils % (Manual) 86 % (39-76) H 10/07/21 04:50 Band Neutrophils % 6 % (0-10) 10/07/21 04:50 Lymphocytes % (Manual) 6 % (13-43) L 10/07/21 04:50 Monocytes % (Manual) 2 % (4-9) L 10/07/21 04:50 Plt Morphology Comment Normal (NORMAL) 10/07/21 04:50 RBC Morphology Normal (NORMAL) 10/07/21 04:50 Sodium 145 mmol/L (136-145) 10/07/21 04:50 Corrected Sodium TNP 10/07/21 04:50 Potassium 4.0 mmol/L (3.5-5.1) 10/07/21 04:50 Chloride 112 mmol/L (98-107) H 10/07/21 04:50 Carbon Dioxide 27.3 mmol/L (21-32) 10/07/21 04:50 BUN 14 mg/dL (7-18) 10/07/21 04:50 Creatinine 1.49 mg/dL (0.70-1.30) H 10/07/21 04:50 Est GFR (MDRD) Af Amer 60 (>60) 10/07/21 04:50 Est GFR (MDRD) Non-Af 49 (>60) L 10/07/21 04:50 Glucose 108 mg/dL (65-99) H 10/07/21 04:50 POC Glucose (mg/dL) 108 mg/dL (65-99) H 10/07/21 12:18 Calcium 7.9 mg/dL (8.5-10.1) L 10/07/21 04:50 Corrected Calcium 9.0 mg/dL (8.5-10.1) 10/07/21 04:50 Total Bilirubin 0.60 mg/dL (0.2-1.0) 10/07/21 04:50 AST 13 Units/L (15-37) L 10/07/21 04:50 ALT 13 Units/L (12-78) 10/07/21 04:50 Alkaline Phosphatase 105 Units/L (46-116) 10/07/21 04:50 Creatine Kinase 193 Units/L (39-308) 10/03/21 11:21 CK-MB (CK-2) 1.1 ng/mL (0-4.0) 10/03/21 11:21 CK/CKMB % Calc 0.6 % (<4) 10/03/21 11:21 Troponin I High Sens 10.0 ng/L (4.0-60.0) 10/03/21 11:21 C-Reactive Protein 86.80 mg/L (0-3.0) H 10/03/21 11:21 Total Protein 5.8 g/dL (6.4-8.2) L 10/07/21 04:50 Albumin 2.6 g/dL (3.4-5.0) L 10/07/21 04:50 Globulin 3.2 g/dL (2.5-4.5) 10/07/21 04:50 Albumin/Globulin Ratio 0.8 Ratio (1.1-2.1) L 10/07/21 04:50 Lipase 50 Units/L (73-393) L 10/03/21 11:21 Specimen Type Clean catch urine 10/07/21 13:03 Urine Color Yellow (YELLOW) 10/07/21 13:03 Urine Appearance Clear (CLEAR) 10/07/21 13:03 Urine pH 5.0 (5.0 - 8.0) 10/07/21 13:03 Ur Specific [place] 1.010 (1.000-1.030) 10/07/21 13:03 Urine Protein 1+ (NEGATIVE) 10/07/21 13:03 Urine Glucose (UA) Negative (NEGATIVE) 10/07/21 13:03 Urine Ketones Negative (NEGATIVE) 10/07/21 13:03 Urine Blood Negative (NEGATIVE) 10/07/21 13:03 Urine Nitrite Negative (NEGATIVE) 10/07/21 13:03 Urine Bilirubin Negative (NEGATIVE) 10/07/21 13:03 Urine Urobilinogen Normal (NORMAL) 10/07/21 13:03 Ur Leukocyte Esterase Negative (NEGATIVE) 10/07/21 13:03 Urine RBC 0-2 /HPF (0-3) 10/07/21 13:03 Urine WBC 3-5 /HPF (0-5) 10/07/21 13:03 Ur Squamous Epith Cells Few /HPF (NEGATIVE) 10/07/21 13:03 Urine Bacteria Trace /HPF (NEGATIVE) 10/07/21 13:03 Urine Mucus Few /HPF (NEGATIVE) 10/07/21 13:03 Ur Culture Indicated? Yes/culture set up 10/07/21 13:03 SARS-CoV-2 (PCR) Negative (NEGATIVE) 10/07/21 12:55 Influenza Type A (PCR) Negative (NEGATIVE) 10/07/21 12:55 Influenza Type B (PCR) Negative (NEGATIVE) 10/07/21 12:55 RSV (PCR) Negative (NEGATIVE) 10/07/21 12:55 - Plan (1) Acute nontraumatic kidney injury Status: Acute Plan: NORMAL SALINE AT 125 ML/HR, ROCEPHIN 1G IV DAILY, OTBS ACHS, NORCO 10/325MG PO QID PRN, AND HIS HOME MEDICATIONS WITH THE EXCEPTION OF ALLOPURINOL AND MELOXICAM WERE RESUMED. (2) Fever Status: Acute Qualifiers: Fever type: unspecified Qualified Code(s): R50.9 - Fever, unspecified Plan: CHECK UA, COVID, RSV, INFLUENZA, BLOOD AND URINE CULTURES, CHEST XRAY (3) Generalized weakness Status: Acute (4) Lower extremity weakness Status: Acute Qualifiers: Laterality: bilateral Qualified Code(s): R29.898 - Other symptoms and signs involving the musculoskeletal system Plan: OBTAIN LUMBAR MRI (5) Intractable low back pain Status: Acute
--- NOTE | 2021-10-07 15:31 | PCM.PROG ---
Progress Note - Progress Note for Day of Date of Exam: 10/04/21 - Subjective Subjective: IS CURRENTLY INPATIENT STATUS FOR TREATMENT OF ACUTE KIDNEY INJURY (NON-TRAUMATIC), GENERALIZED WEAKNESS, AND LOW BACK PAIN. HE HAS A PMH OF ALZHEIMERS, ARTHRITIS, DM II, GOUT, HTN, LUMBAR DDD. TODAY, HE IS ALERT AND ORIENTED, LYING IN BED ON MORNING ROUNDS. HE CONTINUES WITH WEAKNESS AND LOW BACK PAIN. ON EXAMINATION, HEART IS REGULAR IN RATE AND RHYTHM. BILATERAL LUNGS NOTED WITH DIMINISHED LUNG SOUNDS THROUGHOUT. ABDOMEN IS ROUND, SOFT, AND NON- TENDER WITH NORMAL BOWEL SOUNDS NOTED IN ALL QUADRANTS. TRACE LOWER EXTREMITY EDEMA NOTED. HIS VITALS THIS MORNING ARE: 98.1-86-20-94%-144/65. HE IS CURRENTLY UTILIZING OXYGEN VIA MASK AT 3 LPM. LABS WERE OBTAINED. WBC 6.5, RBC 3.66, HGB 11.4, HCT 33.2, PLT COUNT 126, SODIUM 142, BUN 47, CREATININE 2.35, GFR 29, AST 11, TOTAL PROTEIN 6.2, ALBUMIN 3.0. HE IS CURRENTLY RECEIVING: NORMAL SALINE WITH 1 AMP BICARB IN EACH LITER AT 125 ML/HR, OTBS ACHS, NORCO 10/325MG PO QID PRN, AND HIS HOME MEDICATIONS WITH THE EXCEPTION OF ALLOPURINOL AND MELOXICAM WERE RESUMED. WE WILL OBTAIN A LUMBAR SPINE MRI TODAY DUE TO PERSISTENT LOWER EXTREMITY WEAKNESS AND LOW BACK PAIN. OTHERWISE, WE WILL FOLLOW UP WITH AM LABS AND CONTINUE TO MONITOR. TIME SPENT ON CLINICAL ASSESSMENT, REVIEWING LABS AND IMAGING, DECISION MAKING, AND DOCUMENTATION GREATER THAN 45 MINUTES. - Past Medical Family Social History Past Med/Fam/Surg Hx: No changes since H&P Allergies: Allergies No Known Drug Allergies Allergy (Verified 05/30/17 14:17) - Review of Systems ROS: No change since H&P - Vital Signs and I&O's Vital Signs: Temperature 100.1 F Pulse Rate [Brachial] 98 Pulse Rate [Left Radial] 68 Pulse Rate 90 Respiratory Rate 20 Blood Pressure [Right Arm] 130/61 Blood Pressure 139/75 O2 Sat by Pulse Oximetry 93 Intake and Output: Intake & Output 10/05/21 10/06/21 10/07/21 10/08/21 11:59 11:59 11:59 11:59 Intake Total 1720 / 1720 2420 / 2420 2770 / 2770 Output Total 1350 / 1350 1740 / 1740 1630 / 1630 Balance 370 / 370 680 / 680 1140 / 1140 - Physical Exam Oriented: Normal Eyes: Normal Ear: Normal Nose: Normal Throat: Normal Respiratory: Generalized, Diminished Cardiovascular: Normal : Normal Auscultation: Bowel Sounds: Normal Palpation: Normal Tenderness: Normal Skin: Normal Musculoskeletal: Back:Thoracic, Back:Lumbar, Motor Deficit, Instability Psychiatric: Normal Mood Description: Calm Affect: Normal Speech Pattern: Clear - Laboratory and Diagnostics Result Diagrams: 10/07/21 04:50 10/07/21 04:50 Labs: Laboratory WBC 17.1 X10^3/uL (3.6-10.0) H D 10/07/21 04:50 RBC 3.83 X10^6/uL (4.7-6.0) L 10/07/21 04:50 Hgb 11.8 g/dL (13.5-18.0) L 10/07/21 04:50 Hct 34.4 % (42.0-54.0) L 10/07/21 04:50 MCV 89.9 fL (80.0-100.0) 10/07/21 04:50 MCH 30.8 pg (27.0-34.0) 10/07/21 04:50 MCHC 34.2 g/dL (33.0-35.0) 10/07/21 04:50 RDW 14.3 % (11.6-16.5) 10/07/21 04:50 Plt Count 149 X10^3/uL (150.0-450.0) L 10/07/21 04:50 Plt Count Comment Decreased (ADEQUATE) 10/07/21 04:50 MPV 9.0 fL (7.4-11.0) 10/07/21 04:50 Neut % (Auto) 92.5 % (42.0-75.0) H 10/07/21 04:50 Lymph % (Auto) 4.7 % (21.0-51.0) L 10/07/21 04:50 [place] % (Auto) 2.3 % (0.0-13.0) 10/07/21 04:50 Eos % (Auto) 0.0 % (0.9-2.9) L 10/07/21 04:50 Baso % (Auto) 0.5 % (0.2-1.0) 10/07/21 04:50 Neut # (Auto) 15.8 x10^3/uL (2.2-4.8) H 10/07/21 04:50 Lymph # (Auto) 0.8 X10^3/uL (1.3-2.9) L 10/07/21 04:50 [place] # (Auto) 0.4 x10^3/uL (0.3-0.8) 10/07/21 04:50 Eos # (Auto) 0.0 x10^3/uL (0.0-0.2) 10/07/21 04:50 Baso # (Auto) 0.1 X10^3/uL (0.0-0.1) 10/07/21 04:50 Absolute Nucleated RBC 0.0 /100WBC 10/07/21 04:50 Total Counted 100 10/07/21 04:50 Neutrophils % (Manual) 86 % (39-76) H 10/07/21 04:50 Band Neutrophils % 6 % (0-10) 10/07/21 04:50 Lymphocytes % (Manual) 6 % (13-43) L 10/07/21 04:50 Monocytes % (Manual) 2 % (4-9) L 10/07/21 04:50 Plt Morphology Comment Normal (NORMAL) 10/07/21 04:50 RBC Morphology Normal (NORMAL) 10/07/21 04:50 Sodium 145 mmol/L (136-145) 10/07/21 04:50 Corrected Sodium TNP 10/07/21 04:50 Potassium 4.0 mmol/L (3.5-5.1) 10/07/21 04:50 Chloride 112 mmol/L (98-107) H 10/07/21 04:50 Carbon Dioxide 27.3 mmol/L (21-32) 10/07/21 04:50 BUN 14 mg/dL (7-18) 10/07/21 04:50 Creatinine 1.49 mg/dL (0.70-1.30) H 10/07/21 04:50 Est GFR (MDRD) Af Amer 60 (>60) 10/07/21 04:50 Est GFR (MDRD) Non-Af 49 (>60) L 10/07/21 04:50 Glucose 108 mg/dL (65-99) H 10/07/21 04:50 POC Glucose (mg/dL) 108 mg/dL (65-99) H 10/07/21 12:18 Calcium 7.9 mg/dL (8.5-10.1) L 10/07/21 04:50 Corrected Calcium 9.0 mg/dL (8.5-10.1) 10/07/21 04:50 Total Bilirubin 0.60 mg/dL (0.2-1.0) 10/07/21 04:50 AST 13 Units/L (15-37) L 10/07/21 04:50 ALT 13 Units/L (12-78) 10/07/21 04:50 Alkaline Phosphatase 105 Units/L (46-116) 10/07/21 04:50 Creatine Kinase 193 Units/L (39-308) 10/03/21 11:21 CK-MB (CK-2) 1.1 ng/mL (0-4.0) 10/03/21 11:21 CK/CKMB % Calc 0.6 % (<4) 10/03/21 11:21 Troponin I High Sens 10.0 ng/L (4.0-60.0) 10/03/21 11:21 C-Reactive Protein 86.80 mg/L (0-3.0) H 10/03/21 11:21 Total Protein 5.8 g/dL (6.4-8.2) L 10/07/21 04:50 Albumin 2.6 g/dL (3.4-5.0) L 10/07/21 04:50 Globulin 3.2 g/dL (2.5-4.5) 10/07/21 04:50 Albumin/Globulin Ratio 0.8 Ratio (1.1-2.1) L 10/07/21 04:50 Lipase 50 Units/L (73-393) L 10/03/21 11:21 Specimen Type Clean catch urine 10/07/21 13:03 Urine Color Yellow (YELLOW) 10/07/21 13:03 Urine Appearance Clear (CLEAR) 10/07/21 13:03 Urine pH 5.0 (5.0 - 8.0) 10/07/21 13:03 Ur Specific [place] 1.010 (1.000-1.030) 10/07/21 13:03 Urine Protein 1+ (NEGATIVE) 10/07/21 13:03 Urine Glucose (UA) Negative (NEGATIVE) 10/07/21 13:03 Urine Ketones Negative (NEGATIVE) 10/07/21 13:03 Urine Blood Negative (NEGATIVE) 10/07/21 13:03 Urine Nitrite Negative (NEGATIVE) 10/07/21 13:03 Urine Bilirubin Negative (NEGATIVE) 10/07/21 13:03 Urine Urobilinogen Normal (NORMAL) 10/07/21 13:03 Ur Leukocyte Esterase Negative (NEGATIVE) 10/07/21 13:03 Urine RBC 0-2 /HPF (0-3) 10/07/21 13:03 Urine WBC 3-5 /HPF (0-5) 10/07/21 13:03 Ur Squamous Epith Cells Few /HPF (NEGATIVE) 10/07/21 13:03 Urine Bacteria Trace /HPF (NEGATIVE) 10/07/21 13:03 Urine Mucus Few /HPF (NEGATIVE) 10/07/21 13:03 Ur Culture Indicated? Yes/culture set up 10/07/21 13:03 SARS-CoV-2 (PCR) Negative (NEGATIVE) 10/07/21 12:55 Influenza Type A (PCR) Negative (NEGATIVE) 10/07/21 12:55 Influenza Type B (PCR) Negative (NEGATIVE) 10/07/21 12:55 RSV (PCR) Negative (NEGATIVE) 10/07/21 12:55 - Plan (1) Acute nontraumatic kidney injury Status: Acute Plan: NORMAL SALINE AT 125 ML/HR WITH 1 AMP BICARB IN EACH LITER, OTBS ACHS, NORCO 10/325MG PO QID PRN, AND HIS HOME MEDICATIONS WITH THE EXCEPTION OF ALLOPURINOL AND MELOXICAM WERE RESUMED. (2) Generalized weakness Status: Acute (3) Lower extremity weakness Status: Acute Qualifiers: Laterality: bilateral Qualified Code(s): R29.898 - Other symptoms and signs involving the musculoskeletal system Plan: OBTAIN LUMBAR MRI (4) Intractable low back pain Status: Acute (5) Alzheimer's dementia Status: Chronic Qualifiers: Alzheimer's disease onset: unspecified onset Dementia behavioral disturbance: without behavioral disturbance Qualified Code(s): G30.9 - Alzheimer's disease, unspecified; F02.80 - Dementia in other diseases classified elsewhere without behavioral disturbance (6) Gout Status: Chronic Qualifiers: Gout site: multiple sites Gout etiology: unspecified cause Chronicity: chronic Qualified Code(s): M1A.09X0 - Idiopathic chronic gout, multiple sites, without tophus (tophi) (7) Lumbar degenerative disc disease Status: Chronic (8) Hypertension Status: Chronic Qualifiers: Hypertension type: primary hypertension Qualified Code(s): I10 - Essential (primary) hypertension
[2021-10-07] MEDS ORDERED: ROCEPHIN VIAL 1 GRAM 1 G in NS 100 ML IV + SPIKE MINIBAG* 100 ML IV SCH (16:00)
--- NOTE | 2021-10-07 16:02 | RAD ---
HISTORYFever WBCSTUDYPortable AP [id number] stable cardiomegaly with grossly clear lungs. Evaluation of the lungs is limited by patient size and technical underpenetration. There is no obvious consolidation, or pleural fluid.The image is mismarked L/R.IMPRESSIONStable cardiomegaly with no definite pneumonia or atelectasis. See above.Electronically signed by: KARRI FARRIS (Oct 07, 2021 16:00:52)
[2021-10-07] MEDS: ROCEPHIN VIAL 1 GRAM 1 G in NS 100 ML IV 100 ML IV SCH (17:15)
[2021-10-07] MEDS: NORVASC TAB 5 MG PO SCH (20:51)
[2021-10-08] MEDS: NS 1,000 ML IV 1,000 ML IV SCH ×3 (03:05→19:29)
[2021-10-08] MEDS: NEURONTIN CAP 300 MG PO SCH ×4 (05:22→21:05)
[2021-10-08 05:41] LABS: BASOPHILS % (AUTO) 0.3 % (0.2-1.0); EOSINOPHILS % (AUTO) 0.2 % (0.9-2.9); HEMATOCRIT 31.1 % (42.0-54.0); HEMOGLOBIN 10.5 g/dL (13.5-18.0); LYMPHOCYTES # (AUTO) 1.2 X10^3/uL (1.3-2.9); LYMPHOCYTES % (AUTO) 7.9 % (21.0-51.0); MEAN CORPUSCULAR HGB CONC 33.9 g/dL (33.0-35.0); MEAN CORPUSCULAR VOLUME 91.5 fL (80.0-100.0); MEAN PLATELET VOLUME 9.1 fL (7.4-11.0); MONOCYTES # (AUTO) 0.6 x10^3/uL (0.3-0.8); MONOCYTES % (AUTO) 3.6 % (0.0-13.0); NEUTROPHILS # (AUTO) 13.7 x10^3/uL (2.2-4.8); RED CELL DISTRIBUTION WIDTH 14.6 % (11.6-16.5); WHITE BLOOD COUNT 15.5 X10^3/uL (3.6-10.0)
[2021-10-08 05:51] LABS: ALANINE AMINOTRANSFERASE 12 Units/L (12-78); ALBUMIN 2.2 g/dL (3.4-5.0); ALKALINE PHOSPHATASE 89 Units/L (46-116); ASPARTATE AMINO TRANSFERASE 10 Units/L (15-37); BLOOD UREA NITROGEN 18 mg/dL (7-18); CALCIUM 7.6 mg/dL (8.5-10.1); CARBON DIOXIDE 27.9 mmol/L (21-32); CHLORIDE 112 mmol/L (98-107); CREATININE 1.59 mg/dL (0.70-1.30); SODIUM 145 mmol/L (136-145); TOTAL PROTEIN 5.4 g/dL (6.4-8.2); eGFR NON BLACK RACES 46 (>60)
[2021-10-08] MEDS ORDERED: GLUCOPHAGE ONE ×2 (08:18→18:51)
[2021-10-08] MEDS: ACTOS PO SCH (08:32)
[2021-10-08] MEDS: ZOCOR TAB 40 MG PO SCH (08:32)
[2021-10-08] MEDS: PriLOSEC PO SCH (08:32)
[2021-10-08] MEDS: GLUCOTROL XL 24-HR PO SCH (08:33)
[2021-10-08] MEDS: SYNTHROID 100 mcg TAB PO SCH (08:33)
[2021-10-08] MEDS: ROCEPHIN VIAL 1 GRAM 1 G in NS 100 ML IV 100 ML IV SCH (08:33)
[2021-10-08] MEDS: GLUCOPHAGE PO SCH ×2 (08:34→20:41)
[2021-10-08] MEDS: PLAVIX PO SCH (08:34)
[2021-10-08 09:49] LABS: LACTIC ACID 1.8 mmol/L (0.4-2.0)
[2021-10-08] MEDS ORDERED: HEPARIN SODIUM IN D5W 25,000 UNITS/500 ML BAG IV PRN (13:47)
[2021-10-08] MEDS ORDERED: HEPARIN SODIUM INJ 5000 UNITS IVP ONE ×3 (14:36→21:47)
[2021-10-08] MEDS ORDERED: HEPARIN SODIUM INJ 5000 UNITS ONE (14:37)
--- NOTE | 2021-10-08 14:37 | CT ---
CT angiogram chest with contrastIndication: Dyspnea and hypoxia. Evaluate for pulmonary embolusCOMPARISONJune 2021 lumbar spine radiographTECHNIQUEHelical images through the chest after IV contrast. Coronal and sagittal reformats provided. MIP images provided.FINDINGSLimited images through the upper abdomen demonstrate vascular calcifications. Review of bone windows demonstrate advanced shoulder DJD with fragmentation of the left clavicle at the AC joint level, incompletely visualized. Partial collapse of the T12 vertebral body noted. This presumably either posttraumatic or chronic and degenerative, incompletely characterized. Shoulder radiographs can further characterize.Gas is seen in left upper chest soft tissues anteriorly is nonspecific, but infection is possible. Stranding is seen adjacent to the left pectoralis musculature.Chest: Aortic arch and branch vessel calcifications are noted. Extensive coronary calcifications are noted. Heart size is enlarged. Dependent atelectasis and small right greater than left effusions are noted. Shot[place] mediastinal lymph nodes are noted. Pulmonary artery bolus timing is adequate. There is filling defect in a left lower lobe segmental vessel on axial image 89 and 90. Filling defects seen in right lower lobe vessels on axial image 100 07/02/2009 is noted. Filling defects seen in the lingular segmental vessel on axial image 67 is noted. Shot[place] mediastinal lymph nodes are noted.There is no pneumothorax. Increased interstitial markings are noted, with dependent atelectasis. Right lower lobe atelectasis is somewhat round, and underlying pulmonary infarct is not completely excluded. Few paraseptal emphysematous changes are noted. Right upper lobe filling defect is seen on coronal image 66-59.IMPRESSION1. Study is positive for pulmonary embolus with multiple bilateral segmental pulmonary artery defects noted.2. There is cardiomegaly and evidence of CHF with pleural effusions and increased interlobular septal thickening.3. Patchy opacities in lung bases favor atelectasis, though pulmonary infarct is not entirely excluded.4. Gas in the left upper anterior chest wall soft tissues near the shoulder is noted. Significant infection is possible. Correlate clinically. Partially visualized incompletely healed left clavicle fracture favored. Shoulder radiographs can further assess.5. Partial collapse of the T12 vertebral body noted, incompletely characterize with gas is essentially unchanged from the October 03, 2021 lumbar spineElectronically signed by: BALWINDER SAUCEDA (Oct 08, 2021 14:36:00)
[2021-10-08] MEDS: HEPARIN SODIUM IN D5W 25,000 UNITS/500 ML BAG IV PRN (15:11)
[2021-10-08 15:43] LABS: CKMB % 1.9 % (<4); CREATINE KINASE MB 1.4 ng/mL (0-4.0)
--- NOTE | 2021-10-08 15:49 | RAD ---
Chest AP portableIndication: DyspneaCOMPARISONJune 2021 CT angiogram chestFINDINGSHeart size enlarged. Patchy pulmonary opacities are noted. There is no pneumothorax or effusionIMPRESSIONCardiomegaly without pneumothorax. See separately dictated CT angiogram chest for discussion of positive pulmonary embolus findings.Electronically signed by: BALWINDER SAUCEDA (Oct 08, 2021 15:47:17)
[2021-10-08] MEDS ORDERED: HEPARIN SODIUM INJ 5000 UNITS IVP NR (16:00)
[2021-10-08 16:01] LABS: BILIRUBIN,URINE NEGATIVE (NEGATIVE); BLOOD/HEMOGLOBIN,URINE 1+ (NEGATIVE); GLUCOSE, URINE NEGATIVE (NEGATIVE); KETONES,URINE NEGATIVE (NEGATIVE); LEUKOCYTE ESTERASE ,URINE NEGATIVE (NEGATIVE); NITRITES,URINE NEGATIVE (NEGATIVE); PROTEIN,URINE 2+ (NEGATIVE); UROBILINOGEN,URINE NORMAL (NORMAL)
[2021-10-08 16:08] LABS: APPEARANCE,URINE CLEAR (CLEAR); BACTERIA,URINE TRACE /HPF (NEGATIVE); COLOR,URINE YELLOW (YELLOW); SQUAMOUS EPITHELIAL CELL,UR RARE /HPF (NEGATIVE)
[2021-10-08] MEDS: ZOSYN VIAL 3.375 GRAMS 3.375 G in NS 100 ML IV 100 ML IV SCH ×2 (17:45→21:05)
--- NOTE | 2021-10-08 18:11 | PCM.PROG ---
Progress Note - Progress Note for Day of Date of Exam: 10/08/21 - Subjective Subjective: IS CURRENTLY INPATIENT STATUS FOR TREATMENT OF ACUTE KIDNEY INJURY (NON-TRAUMATIC), GENERALIZED WEAKNESS, LOW BACK PAIN, AND FEVER. HE BEGAN HAVING FEVER THURSDAY NIGHT. THURSDAY MORNING, HIS WBC INCREASED FROM 7 TO 17. TODAY, HE IS ALERT AND ORIENTED, LYING IN BED ON MORNING ROUNDS. HE CONTINUES WITH WEAKNESS AND INTERMITTENT LOW BACK PAIN. HE ALSO COMPLAINS OF SHORTNESS OF BREATH AND LEFT CHEST WALL TENDERNESS AND SWELLING. HE REPORTEDLY HAD AN IV TO THAT AREA THAT INFILTRATED A FEW DAYS AGO. ON EXAMINATION, HEART IS REGULAR IN RATE AND RHYTHM. BILATERAL LUNGS NOTED WITH DIMINISHED LUNG SOUNDS THROUGHOUT. ERYTHEMA AND EDEMA NOTED TO LEFT CHEST WALL. AREA IS TENDER TO TOUCH. ABDOMEN IS ROUND, SOFT, AND NON-TENDER WITH NORMAL BOWEL SOUNDS NOTED IN ALL QUADRANTS. TRACE LOWER EXTREMITY EDEMA NOTED. PATIENT ADMITS TO HAVING A CARDIAC WORK-UP BY , REEL CUTTER, IN JUNE. AN ECHO WAS OBTAINED AT THAT TIME. IT REVEALED AN EJECTION FRACTION OF 55%, SEVERE CONCENTRIC HYPERTROPHY OF THE LEFT VENTRICLE, RVSP 23mmHG, LEFT ATRIAL CAVITY SEVERELY DILATED AT 5.9cm. STRESS TEST WAS DONE AND REVEALED A FIXED MILD-MODERATE DEFECT IN THE INFEROLATERAL AND INFERIOR REGIONS. NORMAL ECG STRESS. NO EVIDENCE OF MYOCARDIAL REPERFUSION. HIS VITALS THIS MORNING ARE: 97.5-79-20-96%-110/56. HE IS CURRENTLY UTILIZING OXYGEN VIA VENTI MASK AT 2 LPM. HE IS NOT IN ANY APPARENT DISTRESS THOUGH, AND CAN PROBABLY BE PLACED ON NASAL CANNULA. LABS WERE OBTAINED. WBC INCREASED TO 15.5, RBC 3.40, HGB 10.5, HCT 31.1, PLT COUNT 129, SODIUM 145, POTASSIUM 4.2, CHLORIDE 112, BUN 18, CREATININE 1.59, GLUCOSE 82, CALCIUM 7.6, AST 10, ALT 12, ALK PHOS 89, TOTAL PROTEIN 5.4, ALBUMIN 2.2. COVID, RSV, INFLUENZA, AND UA WERE NEGATIVE. A URINE CULTURE AND BLOOD CULTURES WERE SET UP. CHEST XRAY WAS OBTAINED YESTERDAY AND WAS NEGATIVE FOR ACUTE ABNORMALITY. HE IS CURRENTLY RECEIVING: NORMAL SALINE AT 125 ML/HR, ROCEPHIN 1G IV DAILY, TYLENOL 650MG PO Q4H PRN, OTBS ACHS, NORCO 10/325MG PO QID PRN, AND HIS HOME MEDICATIONS WITH THE EXCEPTION OF ALLOPURINOL AND MELOXICAM WERE RESUMED. TODAY, WE WILL OBTAIN A CHEST CTA. SERIAL CARDIAC ENZYMES AND EKGS, AND WILL REPEAT URINE CULTURE. WE WILL PLAN TO HAVE EVALUATE PATIENT WHEN HE IS HERE TOMORROW. OTHERWISE, WE WILL FOLLOW UP WITH AM LABS AND CONTINUE TO MONITOR. TIME SPENT ON CLINICAL ASSESSMENT, REVIEWING LABS AND IMAGING, DECISION MAKING, AND DOCUMENTATION GREATER THAN 45 MINUTES. - Past Medical Family Social History Past Med/Fam/Surg Hx: No changes since H&P Allergies: Allergies No Known Drug Allergies Allergy (Verified 05/30/17 14:17) - Review of Systems ROS: No change since H&P - Vital Signs and I&O's Vital Signs: Temperature 97.5 F Pulse Rate [Brachial] 86 Pulse Rate [Left Radial] 68 Pulse Rate 76 Respiratory Rate 21 Blood Pressure [Right Arm] 131/59 Blood Pressure 126/60 O2 Sat by Pulse Oximetry 95 Intake and Output: Intake & Output 10/06/21 10/07/21 10/08/21 10/09/21 11:59 11:59 11:59 11:59 Intake Total 2420 / 2420 2770 / 2770 2830 / 2830 452 / 452 Output Total 1740 / 1740 1630 / 1630 1100 / 1100 950 / 950 Balance 680 / 680 1140 / 1140 1730 / 1730 -498 / -498 - Physical Exam Oriented: Normal Eyes: Normal Ear: Normal Nose: Normal Throat: Normal Respiratory: Generalized, Diminished Cardiovascular: Normal : Normal Auscultation: Bowel Sounds: Normal Palpation: Normal Tenderness: Normal Skin: Red (LEFT CHEST WALL CELLULITIS), Tender, Hot Musculoskeletal: Normal, Back:Thoracic, Back:Lumbar, Motor Deficit, Instability Psychiatric: Normal Mood Description: Calm Affect: Normal Speech Pattern: Clear, Appropriate - Laboratory and Diagnostics Result Diagrams: 10/08/21 04:55 10/08/21 04:55 Labs: 10/07/21 13:03 Urine,Clean Catch Urine Culture - Preliminary Laboratory WBC 15.5 X10^3/uL (3.6-10.0) H 10/08/21 04:55 RBC 3.40 X10^6/uL (4.7-6.0) L 10/08/21 04:55 Hgb 10.5 g/dL (13.5-18.0) L 10/08/21 04:55 Hct 31.1 % (42.0-54.0) L 10/08/21 04:55 MCV 91.5 fL (80.0-100.0) 10/08/21 04:55 MCH 31.0 pg (27.0-34.0) 10/08/21 04:55 MCHC 33.9 g/dL (33.0-35.0) 10/08/21 04:55 RDW 14.6 % (11.6-16.5) 10/08/21 04:55 Plt Count 129 X10^3/uL (150.0-450.0) L 10/08/21 04:55 Plt Count Comment Decreased (ADEQUATE) 10/07/21 04:50 MPV 9.1 fL (7.4-11.0) 10/08/21 04:55 Neut % (Auto) 88.0 % (42.0-75.0) H 10/08/21 04:55 Lymph % (Auto) 7.9 % (21.0-51.0) L 10/08/21 04:55 [place] % (Auto) 3.6 % (0.0-13.0) 10/08/21 04:55 Eos % (Auto) 0.2 % (0.9-2.9) L 10/08/21 04:55 Baso % (Auto) 0.3 % (0.2-1.0) 10/08/21 04:55 Neut # (Auto) 13.7 x10^3/uL (2.2-4.8) H 10/08/21 04:55 Lymph # (Auto) 1.2 X10^3/uL (1.3-2.9) L 10/08/21 04:55 [place] # (Auto) 0.6 x10^3/uL (0.3-0.8) 10/08/21 04:55 Eos # (Auto) 0.0 x10^3/uL (0.0-0.2) 10/08/21 04:55 Baso # (Auto) 0.0 X10^3/uL (0.0-0.1) 10/08/21 04:55 Absolute Nucleated RBC 0.0 /100WBC 10/08/21 04:55 Total Counted 100 10/07/21 04:50 Neutrophils % (Manual) 86 % (39-76) H 10/07/21 04:50 Band Neutrophils % 6 % (0-10) 10/07/21 04:50 Lymphocytes % (Manual) 6 % (13-43) L 10/07/21 04:50 Monocytes % (Manual) 2 % (4-9) L 10/07/21 04:50 Plt Morphology Comment Normal (NORMAL) 10/07/21 04:50 RBC Morphology Normal (NORMAL) 10/07/21 04:50 APTT 30.0 SECONDS (22.9-36.5) 10/08/21 14:44 PTT Comment - 10/08/21 14:44 Sodium 145 mmol/L (136-145) 10/08/21 04:55 Corrected Sodium TNP 10/08/21 04:55 Potassium 4.2 mmol/L (3.5-5.1) 10/08/21 04:55 Chloride 112 mmol/L (98-107) H 10/08/21 04:55 Carbon Dioxide 27.9 mmol/L (21-32) 10/08/21 04:55 BUN 18 mg/dL (7-18) 10/08/21 04:55 Creatinine 1.59 mg/dL (0.70-1.30) H 10/08/21 04:55 Est GFR (MDRD) Af Amer 55 (>60) L 10/08/21 04:55 Est GFR (MDRD) Non-Af 46 (>60) L 10/08/21 04:55 Glucose 82 mg/dL (65-99) 10/08/21 04:55 POC Glucose (mg/dL) 112 mg/dL (65-99) H 10/08/21 16:15 Lactic Acid 1.8 mmol/L (0.4-2.0) 10/08/21 09:23 Calcium 7.6 mg/dL (8.5-10.1) L 10/08/21 04:55 Corrected Calcium 9.0 mg/dL (8.5-10.1) 10/08/21 04:55 Total Bilirubin 0.40 mg/dL (0.2-1.0) 10/08/21 04:55 AST 10 Units/L (15-37) L 10/08/21 04:55 ALT 12 Units/L (12-78) 10/08/21 04:55 Alkaline Phosphatase 89 Units/L (46-116) 10/08/21 04:55 Creatine Kinase 74 Units/L (39-308) 10/08/21 14:44 CK-MB (CK-2) 1.4 ng/mL (0-4.0) 10/08/21 14:44 CK/CKMB % Calc 1.9 % (<4) 10/08/21 14:44 Troponin I High Sens 267.7 ng/L (4.0-60.0) H* 10/08/21 14:44 C-Reactive Protein 86.80 mg/L (0-3.0) H 10/03/21 11:21 Total Protein 5.4 g/dL (6.4-8.2) L 10/08/21 04:55 Albumin 2.2 g/dL (3.4-5.0) L 10/08/21 04:55 Globulin 3.2 g/dL (2.5-4.5) 10/08/21 04:55 Albumin/Globulin Ratio 0.7 Ratio (1.1-2.1) L 10/08/21 04:55 Lipase 50 Units/L (73-393) L 10/03/21 11:21 Specimen Type Clean catch urine 10/08/21 15:32 Urine Color Yellow (YELLOW) 10/08/21 15:32 Urine Appearance Clear (CLEAR) 10/08/21 15:32 Urine pH 6.0 (5.0 - 8.0) 10/08/21 15:32 Ur Specific [place] 1.010 (1.000-1.030) 10/08/21 15:32 Urine Protein 2+ (NEGATIVE) 10/08/21 15:32 Urine Glucose (UA) Negative (NEGATIVE) 10/08/21 15:32 Urine Ketones Negative (NEGATIVE) 10/08/21 15:32 Urine Blood 1+ (NEGATIVE) 10/08/21 15:32 Urine Nitrite Negative (NEGATIVE) 10/08/21 15:32 Urine Bilirubin Negative (NEGATIVE) 10/08/21 15:32 Urine Urobilinogen Normal (NORMAL) 10/08/21 15:32 Ur Leukocyte Esterase Negative (NEGATIVE) 10/08/21 15:32 Urine RBC 3-5 /HPF (0-3) A 10/08/21 15:32 Urine WBC 0-2 /HPF (0-5) 10/08/21 15:32 Ur Squamous Epith Cells Rare /HPF (NEGATIVE) 10/08/21 15:32 Urine Bacteria Trace /HPF (NEGATIVE) 10/08/21 15:32 Urine Mucus Few /HPF (NEGATIVE) 10/07/21 13:03 Ur Culture Indicated? No/not indicated 10/08/21 15:32 SARS-CoV-2 (PCR) Negative (NEGATIVE) 10/07/21 12:55 Influenza Type A (PCR) Negative (NEGATIVE) 10/07/21 12:55 Influenza Type B (PCR) Negative (NEGATIVE) 10/07/21 12:55 RSV (PCR) Negative (NEGATIVE) 10/07/21 12:55 - Plan (1) Acute nontraumatic kidney injury Status: Acute Plan: NORMAL SALINE AT 125 ML/HR, ROCEPHIN 1G IV DAILY, OTBS ACHS, NORCO 10/325MG PO QID PRN, AND HIS HOME MEDICATIONS WITH THE EXCEPTION OF ALLOPURINOL AND MELOXICAM WERE RESUMED. (2) Cellulitis of chest wall Status: Acute (3) Fever Status: Acute Qualifiers: Fever type: unspecified Qualified Code(s): R50.9 - Fever, unspecified Plan: CULTURES PENDING (4) Shortness of breath Status: Acute Plan: OBTAIN CHEST CTA (5) Generalized weakness Status: Acute (6) Lower extremity weakness Status: Acute Qualifiers: Laterality: bilateral Qualified Code(s): R29.898 - Other symptoms and signs involving the musculoskeletal system (7) Intractable low back pain Status: Acute
[2021-10-08] MEDS: NORCO 10/325 TAB PO PRN (20:41)
[2021-10-08] MEDS: NORVASC TAB 5 MG PO SCH (20:41)
[2021-10-08] MEDS: CIPRO IV 400 MG PREMIX* 400 MG/200 ML IV.SOLN. IV SCH (21:05)
[2021-10-08 21:08] LABS: CKMB % 2.5 % (<4); CREATINE KINASE MB 1.4 ng/mL (0-4.0)
[2021-10-08] MEDS: ZOFRAN INJ 4 MG VIAL IVP PRN (22:54)
[2021-10-09] MEDS: NS 1,000 ML IV 1,000 ML IV SCH ×4 (01:09→20:27)
[2021-10-09] MEDS ORDERED: PHENERGAN INJ 25 MG IM PRN (01:34)
[2021-10-09 04:08] LABS: BASOPHILS % (AUTO) 0.2 % (0.2-1.0); EOSINOPHILS # (AUTO) 0.2 x10^3/uL (0.0-0.2); EOSINOPHILS % (AUTO) 1.4 % (0.9-2.9); HEMATOCRIT 27.5 % (42.0-54.0); HEMOGLOBIN 9.4 g/dL (13.5-18.0); LYMPHOCYTES # (AUTO) 0.9 X10^3/uL (1.3-2.9); LYMPHOCYTES % (AUTO) 7.8 % (21.0-51.0); MEAN CORPUSCULAR HEMOGLOBIN 30.8 pg (27.0-34.0); MEAN CORPUSCULAR HGB CONC 34.1 g/dL (33.0-35.0); MEAN CORPUSCULAR VOLUME 90.3 fL (80.0-100.0); MEAN PLATELET VOLUME 8.5 fL (7.4-11.0); MONOCYTES # (AUTO) 0.3 x10^3/uL (0.3-0.8); MONOCYTES % (AUTO) 2.9 % (0.0-13.0); NEUTROPHILS # (AUTO) 9.9 x10^3/uL (2.2-4.8); NEUTROPHILS % (AUTO) 87.7 % (42.0-75.0); RED BLOOD COUNT 3.05 X10^6/uL (4.7-6.0); RED CELL DISTRIBUTION WIDTH 14.8 % (11.6-16.5); WHITE BLOOD COUNT 11.3 X10^3/uL (3.6-10.0)
[2021-10-09] MEDS ORDERED: HEPARIN SODIUM INJ 5000 UNITS IVP ONE (04:22)
[2021-10-09 04:57] LABS: ALANINE AMINOTRANSFERASE 11 Units/L (12-78); ALKALINE PHOSPHATASE 84 Units/L (46-116); ASPARTATE AMINO TRANSFERASE 10 Units/L (15-37); BLOOD UREA NITROGEN 18 mg/dL (7-18); CALCIUM 7.6 mg/dL (8.5-10.1); CARBON DIOXIDE 29.1 mmol/L (21-32); CHLORIDE 109 mmol/L (98-107); COR CA(FOR HYPOALB) 9.2 mg/dL (8.5-10.1); COR NA(FOR HYPERGLY) 140 mmol/L (136-145); CREATININE 1.47 mg/dL (0.70-1.30); SODIUM 140 mmol/L (136-145); TOTAL PROTEIN 5.2 g/dL (6.4-8.2); eGFR NON BLACK RACES 50 (>60)
[2021-10-09] MEDS: ZOSYN VIAL 3.375 GRAMS 3.375 G in NS 100 ML IV 100 ML IV SCH ×3 (05:24→21:37)
[2021-10-09] MEDS: NEURONTIN CAP 300 MG PO SCH ×3 (05:24→21:36)
--- NOTE | 2021-10-09 06:03 | RAD ---
HISTORYShortness of breathSTUDYChest AP [id number]/2022 chest x-ray and CTA chestFINDINGSThe heart is markedly enlarged. Pulmonary venous congestion is present. No definite interstitial edema, alveolar edema, or alveolar infiltrates identified. No pleural effusion or pneumothorax is identified. Bony thorax is unremarkable.IMPRESSIONMarked cardiomegaly with pulmonary venous congestionNo definite acute infiltratesElectronically signed by: CATHI TREVINO (Oct 09, 2021 06:01:50)
[2021-10-09] MEDS: HEPARIN SODIUM IN D5W 25,000 UNITS/500 ML BAG IV PRN (07:49)
[2021-10-09] MEDS ORDERED: GLUCOPHAGE ONE ×2 (08:42→19:09)
[2021-10-09] MEDS: SYNTHROID 100 mcg TAB PO SCH (08:45)
[2021-10-09] MEDS: ACTOS PO SCH (08:45)
[2021-10-09] MEDS: GLUCOPHAGE PO SCH ×2 (08:45→21:36)
[2021-10-09] MEDS: CIPRO IV 400 MG PREMIX* 400 MG/200 ML IV.SOLN. IV SCH ×2 (08:45→20:14)
[2021-10-09] MEDS: GLUCOTROL XL 24-HR PO SCH (08:46)
[2021-10-09] MEDS: PriLOSEC PO SCH (08:46)
[2021-10-09] MEDS: ZOCOR TAB 40 MG PO SCH (08:46)
[2021-10-09] MEDS: PLAVIX PO SCH (08:52)
[2021-10-09 09:17] LABS: CKMB % 3.1 % (<4); CREATINE KINASE MB 1.1 ng/mL (0-4.0)
[2021-10-09] MEDS: ELIQUIS PO SCH ×2 (11:12→20:25)
--- NOTE | 2021-10-09 11:32 | DR.CARD ---
Cardiology Consult Consultation for Day of: Date: 10/09/21 Chief Complaint Chief Complaint: Fatigue Allergies Allergies Allergy/AdvReac Type Severity Reaction Status Date / Time No Known Drug Allergies Allergy Verified 05/30/17 14:17 History of Present Illness History of Present Illness: Patient presented to the emergency department with complaints of weakness and fatigue. Inpatient stay has been significant for OLIVA, Pulmonary Embolism, Acute infection/cellulitis + leukocytosis and fevers. Patient is known to our cardiology clinic for HFpEF. He had echocardiogram 06/07/21: Normal EF, severe concentric LVH (IVS 1.7cm), Mild MR, RVSP 23. NST, 06/26/21: fixed mild moderate defect inf and lateral regions with normal contractility consistent with bowel artifact. Considered a probably normal/low risk study. Mr. Hopper shares that he has not had any chest discomfort inpatient. he has noticed ankle edema. He denies PND, orthopnea. Overall he is feeling improved. Past Medical History Past Medical History: Alzheimers, Arthritis, Diabetes, Gout and Hypertension Family History Family Medical History: Diabetes Mellitus and Cancer Social History Does patient currently use any type of tobacco product: No Have you used tobacco products in the last 12 months: No Type of Tobacco Use: None Does any household member use tobacco: No Alcohol Use: None Drug Use: None Medications Home Medications: No Known Drug Allergies Allergy (Verified 05/30/17 14:17) CONTINUE taking the following medications gabapentin 300 mg PO TID 10/03/21 [History] pioglitazone 15 mg PO DAILY 10/03/21 [History] tramadol 50 mg PO QID PRN 10/03/21 [History] Review of Systems Constitutional: No Symptoms Reported Eyes: No Symptoms Reported ENT: No Symptoms Reported Respiratory: No Symptoms Reported Cardiovascular: Edema; denies Chest Pain, Palpitations, Orthopnea, Paroxysmal Noc. Dyspnea and Light Headedness Gastrointestinal: No Symptoms Reported Genitourinary: No Symptoms Reported Musculoskeletal: Back Pain and Foot Pain (bilateral neuropathy) Skin: Lesions (improving cellulitis L anterior chest) Neurological: Numbness (+ tinling, bilateral lower extremities) Physical Exam Vital Signs: Temperature 98.6 F Pulse Rate 92 Respiratory Rate 18 Blood Pressure [Right Arm] 142/65 Blood Pressure 103/50 O2 Sat by Pulse Oximetry 96 Oriented: Normal Eyes: Normal Ear: Normal Nose: Normal Respiratory: Clear Throughout Cardiovascular: Normal (RRR, no m/r/g, no JVD, mild ankle edema.) Auscultation: Bowel Sounds: Normal Palpation: Normal Tenderness: Normal Skin: Normal and Rash (improving L anterior chest cellulitis) Psychiatric: Normal Mood Description: Calm Speech Pattern: Clear Medical Decision Making Reason for Consult: PE (+ troponins) EKG Results: Sinus Rhythm Labs reviewed: Yes Radiology Reviewed: Yes Significant Abnormal Xray: CTA - Pulmonary embolism Plan Plan: 1. Elevated Tropins a. nonischemic ecg b. no chest pain inpatient c. CTA (+) Pulmonary embolism d. NST 06/25: Fixed defect likely related to bowel artifact, no ischemic, considered low risk probably normal study e. Troponins elevated but stable no peak/trough 274.6 --> 267.6 --> 271.1 --> 195 f. likely type II NSTEMI r/t pulmonary embolism g. FU outpatient - see attending note 2. Pulmonary embolism a. Per CTA 10/08/21 b. Currently on heparin 3. HFpEF a. CTA 10/08/21 reports cardiomegaly and pulmonary venous congestion b. would recommend d/c Actos, consider Jardiance or Farxiga outpatient with s pecial attention to renal function c. Pt with mild ankle edema, no orthpnea/pnd d. give lasix 20mg PO PRN swelling/PELAEZ 4. OLIVA a. improving b. only gently diuresis c. follow hospitalists recs 5. Leukocytosis a. source of infection/being treated for L anterior chest cellulitis b. improving on ABx c. continue hospitalist recs
--- NOTE | 2021-10-09 13:49 | PCM.PROG ---
Progress Note - Progress Note for Day of Date of Exam: 10/09/21 - Subjective Subjective: IS CURRENTLY INPATIENT STATUS FOR TREATMENT OF ACUTE KIDNEY INJURY (NON-TRAUMATIC), PULMONARY EMBOLISM, LEFT CHEST WALL CELLULITIS, GENERALIZED WEAKNESS, LOW BACK PAIN. TODAY, HE IS ALERT AND ORIENTED, LYING IN BED ON MORNING ROUNDS. HE CONTINUES WITH WEAKNESS, SHORTNESS OF BREATH, AND INTERMITTENT LOW BACK PAIN. HE DENIES HAVING ANY CHEST PAIN. ON EXAMINATION, HEART IS REGULAR IN RATE AND RHYTHM. BILATERAL LUNGS NOTED WITH DIMINISHED LUNG SOUNDS THROUGHOUT. ERYTHEMA AND EDEMA NOTED TO LEFT CHEST WALL, SLIGHTLY DECREASED SINCE YESTERDAY. AREA IS TENDER TO TOUCH. ABDOMEN IS ROUND, SOFT, AND NON-TENDER WITH NORMAL BOWEL SOUNDS NOTED IN ALL QUADRANTS. TRACE LOWER EXTREMITY EDEMA NOTED. PATIENT ADMITS TO HAVING A CARDIAC WORK-UP BY , COMBINER OPERATOR, IN JUNE. AN ECHO WAS OBTAINED AT THAT TIME. IT REVEALED AN EJECTION FRACTION OF 55%, SEVERE CONCENTRIC HYPERTROPHY OF THE LEFT VENTRICLE, RVSP 23mmHG, LEFT ATRIAL CAVITY SEVERELY DILATED AT 5.9cm. STRESS TEST WAS DONE AND REVEALED A FIXED MILD-MODERATE DEFECT IN THE INFEROLATERAL AND INFERIOR REGIONS. NORMAL ECG STRESS. NO EVIDENCE OF MYOCARDIAL REPERFUSION. HIS VITALS THIS MORNING ARE: 97.7-68-20-94%-110/52. HE IS CURRENTLY UTILIZING OXYGEN VIA NASAL CANNULA AT 2-3LPM. LABS WERE OBTAINED. WBC DECREASED TO 11.3, RBC 3.05, HGB 9.4, HCT 27.5, PLT COUNT 120, PTT 71.9, SODIUM 140, CHLORIDE 109, POTASSIUM 3.7, BUN 18, CREATININE 1.47, GLUCOSE 112, CALCIUM 7.6, AST 10, ALT 11, CRP 194, TOTAL PRTOEIN 5.2, ALBUMIN 2.0. CARDIAC ENZYMES WERE OBTAINED YESTERDAY. HIS INITIAL TROPONIN AT 11:14 WAS 274.6. THIS MORNING, IT IS 195.4. A URINE CULTURE AND BLOOD CULTURES ARE PENDING. CHEST CTA WAS OBTAINED YESTERDAY AND REVEALED: 1. Study is positive for pulmonary embolus with multiple bilateral segmental pulmonary artery defects noted.2. There is cardiomegaly and evidence of CHF with pleural effusions and increased interlobular septal thickening.3. Patchy opacities in lung bases favor atelectasis, though pulmonary infarct is not entirely excluded.4. Gas in the left upper anterior chest wall soft tissues near the shoulder is noted. Significant infection is possible. Correlate clinically. Partially visualized incompletely healed left clavicle fracture favored. Shoulder radiographs can further assess.5. Partial collapse of the T12 vertebral body noted, incompletely characterize with gas is essentially unchanged from the October 03, 2021 lumbar spine. HE IS CURRENTLY RECEIVING: NORMAL SALINE AT 75 ML/HR, ZOSYN 3.375G IV TID, CIPRO 400MG IV Q12H, TYLENOL 650MG PO Q4H PRN, OTBS ACHS, NORCO 10/325MG PO QID PRN, ZOFRAN 4MG IV Q6H PRN, PHENERGAN 12.5MG IM Q6H PRN, AND HIS HOME MEDICATIONS WITH THE EXCEPTION OF ALLOPURINOL AND MELOXICAM WERE RESUMED. WE WILL PLAN TO HAVE EVALUATE PATIENT THIS MORNING. OTHERWISE, WE WILL FOLLOW UP WITH AM LABS AND CONTINUE TO MONITOR. TIME SPENT ON CLINICAL ASSESSMENT, REVIEWING LABS AND IMAGING, DECISION MAKING, AND DOCUMENTATION GREATER THAN 45 MINUTES. - Past Medical Family Social History Past Med/Fam/Surg Hx: No changes since H&P Allergies: Allergies No Known Drug Allergies Allergy (Verified 05/30/17 14:17) - Review of Systems ROS: No change since H&P - Vital Signs and I&O's Vital Signs: Temperature 97.7 F Pulse Rate [Brachial] 86 Pulse Rate [Left Radial] 68 Pulse Rate 65 Respiratory Rate 21 Blood Pressure [Right Arm] 131/59 Blood Pressure 118/56 O2 Sat by Pulse Oximetry 95 Intake and Output: Intake & Output 10/07/21 10/08/21 10/09/21 10/10/21 11:59 11:59 11:59 11:59 Intake Total 2770 / 2770 2830 / 2830 2250 / 2250 Output Total 1630 / 1630 1100 / 1100 1375 / 1375 Balance 1140 / 1140 1730 / 1730 875 / 875 - Physical Exam Oriented: Normal Eyes: Normal Ear: Normal Nose: Normal Throat: Normal Respiratory: Generalized, Diminished Cardiovascular: Normal (RRR, no m/r/g, no JVD, mild ankle edema.) : Normal Auscultation: Bowel Sounds: Normal Palpation: Normal Tenderness: Normal Skin: Rash (improving L anterior chest cellulitis) Musculoskeletal: Normal, Back:Thoracic, Back:Lumbar, Motor Deficit, Instability Psychiatric: Normal Mood Description: Calm Affect: Normal Speech Pattern: Clear - Laboratory and Diagnostics Result Diagrams: 10/09/21 03:50 10/09/21 03:50 Labs: 10/08/21 15:32 Urine,Clean Catch Urine Culture - Preliminary 10/07/21 13:03 Urine,Clean Catch Urine Culture - Final 10/07/21 00:08 Blood Blood Culture - Preliminary 10/07/21 00:00 Blood Blood Culture - Preliminary Laboratory WBC 11.3 X10^3/uL (3.6-10.0) H 10/09/21 03:50 RBC 3.05 X10^6/uL (4.7-6.0) L 10/09/21 03:50 Hgb 9.4 g/dL (13.5-18.0) L 10/09/21 03:50 Hct 27.5 % (42.0-54.0) L 10/09/21 03:50 MCV 90.3 fL (80.0-100.0) 10/09/21 03:50 MCH 30.8 pg (27.0-34.0) 10/09/21 03:50 MCHC 34.1 g/dL (33.0-35.0) 10/09/21 03:50 RDW 14.8 % (11.6-16.5) 10/09/21 03:50 Plt Count 120 X10^3/uL (150.0-450.0) L 10/09/21 03:50 Plt Count Comment Decreased (ADEQUATE) 10/07/21 04:50 MPV 8.5 fL (7.4-11.0) 10/09/21 03:50 Neut % (Auto) 87.7 % (42.0-75.0) H 10/09/21 03:50 Lymph % (Auto) 7.8 % (21.0-51.0) L 10/09/21 03:50 [place] % (Auto) 2.9 % (0.0-13.0) 10/09/21 03:50 Eos % (Auto) 1.4 % (0.9-2.9) 10/09/21 03:50 Baso % (Auto) 0.2 % (0.2-1.0) 10/09/21 03:50 Neut # (Auto) 9.9 x10^3/uL (2.2-4.8) H 10/09/21 03:50 Lymph # (Auto) 0.9 X10^3/uL (1.3-2.9) L 10/09/21 03:50 [place] # (Auto) 0.3 x10^3/uL (0.3-0.8) 10/09/21 03:50 Eos # (Auto) 0.2 x10^3/uL (0.0-0.2) 10/09/21 03:50 Baso # (Auto) 0.0 X10^3/uL (0.0-0.1) 10/09/21 03:50 Absolute Nucleated RBC 0.0 /100WBC 10/09/21 03:50 Total Counted 100 10/07/21 04:50 Neutrophils % (Manual) 86 % (39-76) H 10/07/21 04:50 Band Neutrophils % 6 % (0-10) 10/07/21 04:50 Lymphocytes % (Manual) 6 % (13-43) L 10/07/21 04:50 Monocytes % (Manual) 2 % (4-9) L 10/07/21 04:50 Plt Morphology Comment Normal (NORMAL) 10/07/21 04:50 RBC Morphology Normal (NORMAL) 10/07/21 04:50 APTT 71.9 SECONDS (22.9-36.5) H 10/09/21 10:22 PTT Comment - 10/09/21 10:22 Sodium 140 mmol/L (136-145) 10/09/21 03:50 Corrected Sodium 140 mmol/L (136-145) 10/09/21 03:50 Potassium 3.7 mmol/L (3.5-5.1) 10/09/21 03:50 Chloride 109 mmol/L (98-107) H 10/09/21 03:50 Carbon Dioxide 29.1 mmol/L (21-32) 10/09/21 03:50 BUN 18 mg/dL (7-18) 10/09/21 03:50 Creatinine 1.47 mg/dL (0.70-1.30) H 10/09/21 03:50 Est GFR (MDRD) Af Amer > 60 (>60) 10/09/21 03:50 Est GFR (MDRD) Non-Af 50 (>60) L 10/09/21 03:50 Glucose 112 mg/dL (65-99) H 10/09/21 03:50 POC Glucose (mg/dL) 91 mg/dL (65-99) 10/09/21 11:20 Lactic Acid 1.8 mmol/L (0.4-2.0) 10/08/21 09:23 Calcium 7.6 mg/dL (8.5-10.1) L 10/09/21 03:50 Corrected Calcium 9.2 mg/dL (8.5-10.1) 10/09/21 03:50 Total Bilirubin 0.20 mg/dL (0.2-1.0) 10/09/21 03:50 AST 10 Units/L (15-37) L 10/09/21 03:50 ALT 11 Units/L (12-78) L 10/09/21 03:50 Alkaline Phosphatase 84 Units/L (46-116) 10/09/21 03:50 Creatine Kinase 36 Units/L (39-308) L 10/09/21 03:50 CK-MB (CK-2) 1.1 ng/mL (0-4.0) 10/09/21 03:50 CK/CKMB % Calc 3.1 % (<4) 10/09/21 03:50 Troponin I High Sens 195.4 ng/L (4.0-60.0) H* 10/09/21 03:50 C-Reactive Protein 194.00 mg/L (0-3.0) H 10/09/21 03:50 Total Protein 5.2 g/dL (6.4-8.2) L 10/09/21 03:50 Albumin 2.0 g/dL (3.4-5.0) L 10/09/21 03:50 Globulin 3.2 g/dL (2.5-4.5) 10/09/21 03:50 Albumin/Globulin Ratio 0.6 Ratio (1.1-2.1) L 10/09/21 03:50 Lipase 50 Units/L (73-393) L 10/03/21 11:21 Specimen Type Clean catch urine 10/08/21 15:32 Urine Color Yellow (YELLOW) 10/08/21 15:32 Urine Appearance Clear (CLEAR) 10/08/21 15:32 Urine pH 6.0 (5.0 - 8.0) 10/08/21 15:32 Ur Specific [place] 1.010 (1.000-1.030) 10/08/21 15:32 Urine Protein 2+ (NEGATIVE) 10/08/21 15:32 Urine Glucose (UA) Negative (NEGATIVE) 10/08/21 15:32 Urine Ketones Negative (NEGATIVE) 10/08/21 15:32 Urine Blood 1+ (NEGATIVE) 10/08/21 15:32 Urine Nitrite Negative (NEGATIVE) 10/08/21 15:32 Urine Bilirubin Negative (NEGATIVE) 10/08/21 15:32 Urine Urobilinogen Normal (NORMAL) 10/08/21 15:32 Ur Leukocyte Esterase Negative (NEGATIVE) 10/08/21 15:32 Urine RBC 3-5 /HPF (0-3) A 10/08/21 15:32 Urine WBC 0-2 /HPF (0-5) 10/08/21 15:32 Ur Squamous Epith Cells Rare /HPF (NEGATIVE) 10/08/21 15:32 Urine Bacteria Trace /HPF (NEGATIVE) 10/08/21 15:32 Urine Mucus Few /HPF (NEGATIVE) 10/07/21 13:03 Ur Culture Indicated? No/not indicated 10/08/21 15:32 SARS-CoV-2 (PCR) Negative (NEGATIVE) 10/07/21 12:55 Influenza Type A (PCR) Negative (NEGATIVE) 10/07/21 12:55 Influenza Type B (PCR) Negative (NEGATIVE) 10/07/21 12:55 RSV (PCR) Negative (NEGATIVE) 10/07/21 12:55 - Plan (1) Pulmonary embolism Status: Acute Qualifiers: Pulmonary embolism type: multiple subsegmental (without acute cor pulmonale) Qualified Code(s): I26.94 - Multiple subsegmental pulmonary emboli without acute cor pulmonale Plan: NORMAL SALINE AT 75 ML/HR, ZOSYN 3.375G IV TID, CIPRO 400MG IV Q12H, TYLENOL 650MG PO Q4H PRN, OTBS ACHS, NORCO 10/325MG PO QID PRN, ZOFRAN 4MG IV Q6H PRN, PHENERGAN 12.5MG IM Q6H PRN, AND HIS HOME MEDICATIONS WITH THE EXCEPTION OF ALLOPURINOL AND MELOXICAM WERE RESUMED. (2) Acute nontraumatic kidney injury Status: Acute (3) Cellulitis of chest wall Status: Acute (4) Fever Status: Acute Qualifiers: Fever type: unspecified Qualified Code(s): R50.9 - Fever, unspecified Plan: CULTURES PENDING (5) Shortness of breath Status: Acute (6) Generalized weakness Status: Acute (7) Lower extremity weakness Status: Acute Qualifiers: Laterality: bilateral Qualified Code(s): R29.898 - Other symptoms and signs involving the musculoskeletal system Plan: OBTAIN LUMBAR MRI (8) Intractable low back pain Status: Acute
[2021-10-09] MEDS: NORVASC TAB 5 MG PO SCH (20:26)
[2021-10-10] MEDS: NS 1,000 ML IV 1,000 ML IV SCH ×3 (03:09→18:41)
[2021-10-10 05:27] LABS: BASOPHILS % (AUTO) 0.6 % (0.2-1.0); EOSINOPHILS # (AUTO) 0.2 x10^3/uL (0.0-0.2); EOSINOPHILS % (AUTO) 2.7 % (0.9-2.9); HEMATOCRIT 26.9 % (42.0-54.0); HEMOGLOBIN 9.3 g/dL (13.5-18.0); LYMPHOCYTES % (AUTO) 13.9 % (21.0-51.0); MEAN CORPUSCULAR HEMOGLOBIN 31.3 pg (27.0-34.0); MEAN CORPUSCULAR HGB CONC 34.7 g/dL (33.0-35.0); MEAN CORPUSCULAR VOLUME 90.3 fL (80.0-100.0); MONOCYTES # (AUTO) 0.3 x10^3/uL (0.3-0.8); NEUTROPHILS # (AUTO) 5.9 x10^3/uL (2.2-4.8); NEUTROPHILS % (AUTO) 78.8 % (42.0-75.0); RED BLOOD COUNT 2.98 X10^6/uL (4.7-6.0); RED CELL DISTRIBUTION WIDTH 14.2 % (11.6-16.5); WHITE BLOOD COUNT 7.5 X10^3/uL (3.6-10.0)
[2021-10-10] MEDS: NEURONTIN CAP 300 MG PO SCH ×3 (05:28→21:34)
[2021-10-10] MEDS: ZOSYN VIAL 3.375 GRAMS 3.375 G in NS 100 ML IV 100 ML IV SCH ×3 (05:28→21:34)
[2021-10-10 05:37] LABS: ALANINE AMINOTRANSFERASE 14 Units/L (12-78); ALKALINE PHOSPHATASE 92 Units/L (46-116); ASPARTATE AMINO TRANSFERASE 11 Units/L (15-37); BLOOD UREA NITROGEN 15 mg/dL (7-18); CALCIUM 7.9 mg/dL (8.5-10.1); CARBON DIOXIDE 28.1 mmol/L (21-32); CHLORIDE 109 mmol/L (98-107); COR CA(FOR HYPOALB) 9.5 mg/dL (8.5-10.1); CREATININE 1.49 mg/dL (0.70-1.30); SODIUM 142 mmol/L (136-145); TOTAL PROTEIN 5.2 g/dL (6.4-8.2); eGFR NON BLACK RACES 49 (>60)
--- NOTE | 2021-10-10 06:05 | RAD ---
HISTORYSOB Relevant Clinical InformationSTUDYCHEST, 1 [id number]/08/2022FINDINGSThe trachea is midline. The cardiac silhouette is enlarged.. The lungs are clear without focal infiltrate or effusion. The bony thorax is unremarkable.IMPRESSIONCardiomegaly.No active cardiopulmonary disease.Electronically signed by: Sarmad Cornell (Oct 10, 2021 06:03:44)
[2021-10-10] MEDS ORDERED: GLUCOPHAGE ONE ×2 (08:18→19:05)
[2021-10-10 08:38] LABS: ABG BASE EXCESS 2.4 mmol/L (-2.0-2.0); ABG HCO3 27.2 mmol/L (22-26)
[2021-10-10 08:41] LABS: ABG ALLEN TEST POS
[2021-10-10] MEDS: CIPRO IV 400 MG PREMIX* 400 MG/200 ML IV.SOLN. IV SCH ×2 (09:18→20:22)
[2021-10-10] MEDS: ELIQUIS PO SCH ×2 (09:18→20:24)
[2021-10-10] MEDS: PriLOSEC PO SCH (09:19)
[2021-10-10] MEDS: GLUCOPHAGE PO SCH ×2 (09:19→21:37)
[2021-10-10] MEDS: SYNTHROID 100 mcg TAB PO SCH (09:19)
[2021-10-10] MEDS: ZOCOR TAB 40 MG PO SCH (09:21)
[2021-10-10] MEDS: PLAVIX PO SCH (09:21)
[2021-10-10] MEDS: GLUCOTROL XL 24-HR PO SCH (09:21)
[2021-10-10 13:39] VITALS: BMI 38.5
[2021-10-10] MEDS: NORVASC TAB 5 MG PO SCH (20:24)
[2021-10-11] MEDS: NS 1,000 ML IV 1,000 ML IV SCH ×2 (01:00→10:31)
[2021-10-11 04:55] LABS: BASOPHILS % (AUTO) 0.4 % (0.2-1.0); EOSINOPHILS # (AUTO) 0.2 x10^3/uL (0.0-0.2); EOSINOPHILS % (AUTO) 3.2 % (0.9-2.9); HEMATOCRIT 27.4 % (42.0-54.0); HEMOGLOBIN 9.4 g/dL (13.5-18.0); LYMPHOCYTES # (AUTO) 0.8 X10^3/uL (1.3-2.9); LYMPHOCYTES % (AUTO) 15.9 % (21.0-51.0); MEAN CORPUSCULAR HGB CONC 34.3 g/dL (33.0-35.0); MEAN CORPUSCULAR VOLUME 90.3 fL (80.0-100.0); MEAN PLATELET VOLUME 8.7 fL (7.4-11.0); MONOCYTES # (AUTO) 0.4 x10^3/uL (0.3-0.8); MONOCYTES % (AUTO) 7.7 % (0.0-13.0); NEUTROPHILS # (AUTO) 3.8 x10^3/uL (2.2-4.8); NEUTROPHILS % (AUTO) 72.8 % (42.0-75.0); RED BLOOD COUNT 3.04 X10^6/uL (4.7-6.0); RED CELL DISTRIBUTION WIDTH 14.3 % (11.6-16.5); WHITE BLOOD COUNT 5.2 X10^3/uL (3.6-10.0)
[2021-10-11 05:06] LABS: ALANINE AMINOTRANSFERASE 16 Units/L (12-78); ALBUMIN 2.1 g/dL (3.4-5.0); ALKALINE PHOSPHATASE 98 Units/L (46-116); ASPARTATE AMINO TRANSFERASE 15 Units/L (15-37); BLOOD UREA NITROGEN 11 mg/dL (7-18); CARBON DIOXIDE 28.4 mmol/L (21-32); CHLORIDE 109 mmol/L (98-107); COR CA(FOR HYPOALB) 9.5 mg/dL (8.5-10.1); CREATININE 1.34 mg/dL (0.70-1.30); SODIUM 143 mmol/L (136-145); TOTAL PROTEIN 5.4 g/dL (6.4-8.2); eGFR NON BLACK RACES 56 (>60)
[2021-10-11] MEDS: NEURONTIN CAP 300 MG PO SCH (05:19)
[2021-10-11] MEDS: ZOSYN VIAL 3.375 GRAMS 3.375 G in NS 100 ML IV 100 ML IV SCH (05:20)
[2021-10-11] MEDS ORDERED: POTASSIUM CHL 60 MEQ/NS 0.45% 500 ML IV PRN (06:14)
[2021-10-11] MEDS ORDERED: MICRO K EXTEN CAP 10 MEQ PO PRN (06:14)
[2021-10-11] MEDS ORDERED: POTASSIUM CHLORIDE LIQ 20 MEQ UDC PO PRN (06:14)
[2021-10-11] MEDS ORDERED: K-RIDER 10 MEQ/NS 100 ML 10 MEQ/100 ML BAG IV PRN (06:14)
[2021-10-11] MEDS ORDERED: K-DUR TAB 20 MEQ PO PRN (06:14)
[2021-10-11] MEDS ORDERED: MAGNESIUM SULFATE 1 GRAM/100 mL PREMIX 1 G/100 ML BAG IV PRN (06:14)
[2021-10-11] MEDS ORDERED: KLOR-CON PO PRN (06:14)
[2021-10-11] MEDS ORDERED: POTASSIUM CHL 40 MEQ/NS 0.45% 500 ML IV PRN (06:14)
--- NOTE | 2021-10-11 06:36 | RAD ---
HISTORYShortness of breathSTUDYChest AP [id number]/09/2022FINDINGSThe heart remains enlarged. Mild pulmonary venous congestion is present. No interstitial edema, alveolar edema, alveolar infiltrates or pleural effusions are identified. Bony thorax is unremarkable.IMPRESSIONMarked cardiomegaly with mild pulmonary venous congestionNo definite infiltratesElectronically signed by: CATHI TREVINO (Oct 11, 2021 06:34:38)
[2021-10-11] MEDS ORDERED: GLUCOPHAGE ONE (08:41)
[2021-10-11] MEDS: PriLOSEC PO SCH (09:15)
[2021-10-11] MEDS: CIPRO IV 400 MG PREMIX* 400 MG/200 ML IV.SOLN. IV SCH (09:15)
[2021-10-11] MEDS: GLUCOPHAGE PO SCH (09:15)
[2021-10-11] MEDS: ELIQUIS PO SCH (09:16)
[2021-10-11] MEDS: GLUCOTROL XL 24-HR PO SCH (09:16)
[2021-10-11] MEDS: ZOCOR TAB 40 MG PO SCH (09:16)
[2021-10-11] MEDS: SYNTHROID 100 mcg TAB PO SCH (09:17)
[2021-10-11] MEDS ORDERED: LASIX IVP SCH (10:00)
[2021-10-11] MEDS ORDERED: K-DUR TAB 20 MEQ PO SCH (10:00)
[2021-10-11] MEDS: PLAVIX PO SCH (10:15)
[2021-10-11 10:56] VITALS: BP 132/63
[2021-10-11 12:28] LABS: ABG ALLEN TEST POSITIVE; ABG BASE EXCESS 3.5 mmol/L (-2.0-2.0); ABG HCO3 26.7 mmol/L (22-26)
[2021-10-16] MEDS ORDERED: ELIQUIS PO SCH (09:00)
== END 2021-10-11 14:10 | disposition home health service (06) | DRG 682 ==
LOC: ER 10:12 → MED/SURG 13:00 → ICU 10-08 13:55
PROVIDERS: ADMIT Internal Medicine; ATTEND Internal Medicine
DX: G30.9 Alzheimer's disease, unspecified; L03.115 Cellulitis of right lower limb; M54.89 Other dorsalgia; I50.9 Heart failure, unspecified; I11.0 Hypertensive heart disease with heart failure; Z20.822 Contact with and (suspected) exposure to COVID-19; R42 Dizziness and giddiness; R53.1 Weakness; R77.8 Other specified abnormalities of plasma proteins; N17.8 Other acute kidney failure; I26.94 Multiple subsegmental thrombotic pulmonary emboli without acute cor pulmonale; E11.65 Type 2 diabetes mellitus with hyperglycemia; L03.313 Cellulitis of chest wall; R06.02 Shortness of breath; R26.89 Other abnormalities of gait and mobility; L03.116 Cellulitis of left lower limb; R79.1 Abnormal coagulation profile

== ENCOUNTER 2022-10-09 16:36 | Inpatient (IN) ==
[2022-10-09] MEDS ORDERED: NS 500 ML IV 500 ML IV ONE ×2 (16:51→17:04)
--- NOTE | 2022-10-09 17:00 | DR.GENAD ---
HPI Time Seen Time Seen by Provider: 10/09/22 16:50 Complaint/Symptoms Chief Complaint Doctors Comments: 72 y/o male brought in via EMS. Pt was outside, had sudden sensation of his legs giving out, fell to the ground,, landed on his buttocks. No head injury, no neck pain. Has slight low back pain since fall. Feeling lightheaded, a bit confused. Denies chest pain, dyspnea, bowel or bladder complaints. + hypoxic on EMS arrival, upper 80s. Now 91-93% on 2 L. No h/o COPD. Does have h/o CHF per the EMR. States has an occasional cough, but not bad. Has chronic edema of his lower exts, but not bad. Nurses notes reviewed Nurses Notes Review: Yes Source History Provided: EMS PMH PMH Past Medical History: Alzheimers, Arthritis, Diabetes, Gout and Hypertension Past Medical History Comment: h/o edema, CHF, lumbar DDD Past Surgical History: Yes Family History Family Medical History: Diabetes Mellitus and Cancer Social History Does patient currently use any type of tobacco product: No Alcohol Use: None Do you use any recreational Drugs:: No ROS Review of Systems Constitutional: Weakness Eyes: No Symptoms Reported ENTM: No Symptoms Reported Respiratoy: No Symptoms Reported Cardiovascular: No Symptoms Reported Gastrointestinal/Abdominal: No Symptoms Reported Genitourinary: No Symptoms Reported Neurological: Weakness Musculoskeletal: No Symptoms Reported Integumentary: No Symptoms Reported Hematologic/Lymphatic: No Symptoms Reported All Other Systems: Reviewed and Negative PE Vital Signs Vitals: Temperature 97.9 F Pulse Rate 79 Pulse Rate 92 Respiratory Rate 12 Respiratory Rate 18 Blood Pressure [Right Arm] 131/59 Blood Pressure [Left Arm] 122/61 Blood Pressure 119/56 Blood Pressure 132/63 O2 Sat by Pulse Oximetry 90 O2 Sat by Pulse Oximetry 94 General General Appearance: Alert and In No Apparent Distress Head Head Exam: Normal Inspection, Atraumatic and Normocephalic Eyes Eye exam: PERRL and EOMI ENT ENT Exam: Normal Exam and Mucous Membranes Moist Neck Neck Exam: Normal Inspection Respiratory Respiratory Exam: Normal Lung Sounds Bilat; negative Accessory Muscle Use or Respiratory Distress Cardiovascular Cardiovascular Exam: Regular Rate, Normal Rhythm and Normal Heart Sounds Abdominal Exam Abdominal Exam: Normal Bowel Sounds and Soft; negative Tenderness Extremities Extremities Exam: Edema (2+ bilateral lower exts, + difficulty with straight leg raising bilaterally) Back Back Exam: Normal Inspection and Tenderness (mild, paralumbar muscles. ) Neurologic Neurological Exam: Alert, Oriented X3 and CN II-XII Intact; negative Motor Sensory Deficit Skin Skin Exam: Warm and Dry COURSE Treatment Treatment: 72 y/o male with sudden onset of bilateral leg weakness, fell to the ground. Pt appears weak. Has difficulty raising either leg, weak and discomfort, can get off bed bilaterally. W/u initiated. Pt dropped his BP on arrival, given IV fluid bolus. + poor pulse ox on 2 L O2, increased to 4, then changed to 50% venti, then NRB. Pt is awake and alert, talks appropiately. No focal deficit c/w acute CVA. CXR - + cardiomegaly, with increased markings bilaterally c/w CHF (does have a h/o CHF in the EMR). Denies chest pain, H/A. Labs show elevated INR - 4.8, is on coumadin. Cr 2.25 (1.6 few years ago, no recent #). Normal lactic acid, WBC. BNP normal, despite presentation. Pt given IV lasix, 20 mg, plus additional IV fluids, for his BP. Discussed with Dr Fitzpatrick, accepts the admission. Will repeat troponin. ROR Labs Reviewed Laboratory Results Reviewed?: Yes Result Diagrams: 10/09/22 17:20 10/09/22 17:20 Laboratory: WBC 9.1 X10^3/uL (3.6-10.0) 10/09/22 17:20 RBC 3.33 X10^6/uL (4.7-6.0) L 10/09/22 17:20 Hgb 10.4 g/dL (13.5-18.0) L 10/09/22 17:20 Hct 29.6 % (42.0-54.0) L 10/09/22 17:20 MCV 89.1 fL (80.0-100.0) 10/09/22 17:20 MCH 31.1 pg (27.0-34.0) 10/09/22 17:20 MCHC 34.9 g/dL (33.0-35.0) 10/09/22 17:20 RDW 13.3 % (11.6-16.5) 10/09/22 17:20 Plt Count 197 X10^3/uL (150.0-450.0) 10/09/22 17:20 MPV 7.7 fL (7.4-11.0) 10/09/22 17:20 Neut % (Auto) 84.7 % (42.0-75.0) H 10/09/22 17:20 Lymph % (Auto) 9.0 % (21.0-51.0) L 10/09/22 17:20 [place] % (Auto) 5.3 % (0.0-13.0) 10/09/22 17:20 Eos % (Auto) 0.5 % (0.9-2.9) L 10/09/22 17:20 Baso % (Auto) 0.5 % (0.2-1.0) 10/09/22 17:20 Neut # (Auto) 7.7 x10^3/uL (2.2-4.8) H 10/09/22 17:20 Lymph # (Auto) 0.8 X10^3/uL (1.3-2.9) L 10/09/22 17:20 [place] # (Auto) 0.5 x10^3/uL (0.3-0.8) 10/09/22 17:20 Eos # (Auto) 0.0 x10^3/uL (0.0-0.2) 10/09/22 17:20 Baso # (Auto) 0.0 X10^3/uL (0.0-0.1) 10/09/22 17:20 Absolute Nucleated RBC 0.0 /100WBC 10/09/22 17:20 PT 44.5 SECONDS (11.8-14.3) 10/09/22 17:20 INR Target Range - 10/09/22 17:20 INR 4.83 (0.8-1.3) H 10/09/22 17:20 Sodium 143 mmol/L (136-145) 10/09/22 17:20 Corrected Sodium 143 mmol/L (136-145) 10/09/22 17:20 Potassium 3.9 mmol/L (3.5-5.1) 10/09/22 17:20 Chloride 105 mmol/L (98-107) 10/09/22 17:20 Carbon Dioxide 31.1 mmol/L (21-32) 10/09/22 17:20 BUN 29 mg/dL (7-18) H 10/09/22 17:20 Creatinine 2.26 mg/dL (0.70-1.30) H 10/09/22 17:20 Est GFR (MDRD) Af Amer 37 (>60) L 10/09/22 17:20 Est GFR (MDRD) Non-Af 30 (>60) L 10/09/22 17:20 Glucose 112 mg/dL (65-99) H 10/09/22 17:20 Lactic Acid 0.9 mmol/L (0.4-2.0) 10/09/22 17:20 Calcium 8.2 mg/dL (8.5-10.1) L 10/09/22 17:20 Corrected Calcium 9.0 mg/dL (8.5-10.1) 10/09/22 17:20 Total Bilirubin 0.30 mg/dL (0.2-1.0) 10/09/22 17:20 AST 9 Units/L (15-37) L 10/09/22 17:20 ALT 12 Units/L (12-78) 10/09/22 17:20 Alkaline Phosphatase 71 Units/L (46-116) 10/09/22 17:20 Creatine Kinase 81 Units/L (39-308) 10/09/22 17:20 Troponin I High Sens 8.0 ng/L (4.0-60.0) 10/09/22 17:20 B-Natriuretic Peptide 55.2 pg/mL (0-79) 10/09/22 17:20 Total Protein 6.6 g/dL (6.4-8.2) 10/09/22 17:20 Albumin 3.0 g/dL (3.4-5.0) L 10/09/22 17:20 Globulin 3.6 g/dL (2.5-4.5) 10/09/22 17:20 Albumin/Globulin Ratio 0.8 Ratio (1.1-2.1) L 10/09/22 17:20 Specimen Type Catherized urine 10/09/22 18:35 Urine Color Yellow (YELLOW) 10/09/22 18:35 Urine Appearance Clear (CLEAR) 10/09/22 18:35 Urine pH 5.0 (5.0 - 8.0) 10/09/22 18:35 Ur Specific [place] 1.010 (1.000-1.030) 10/09/22 18:35 Urine Protein Negative (NEGATIVE) 10/09/22 18:35 Urine Glucose (UA) Negative (NEGATIVE) 10/09/22 18:35 Urine Ketones Negative (NEGATIVE) 10/09/22 18:35 Urine Blood Negative (NEGATIVE) 10/09/22 18:35 Urine Nitrite Negative (NEGATIVE) 10/09/22 18:35 Urine Bilirubin Negative (NEGATIVE) 10/09/22 18:35 Urine Urobilinogen Normal (NORMAL) 10/09/22 18:35 Ur Leukocyte Esterase Negative (NEGATIVE) 10/09/22 18:35 XRAY XRAY Interpreted by: Self X-ray Results: c/w pulmonary vascular congestion. EKG Rate: 84 In[place]: Normal Rhythm: NSR ST: Nonsp Opioid Opioid Risk Tool Age (Dwight box if 16-45): No History of Preadolescent Sexual Abuse: No Total: 0 Total Score Risk Category: Low Risk Copyright: Iron ROBB predicting aberrant behaviors Discharge Plan Diagnosis Discharge Problem: CHF (congestive heart failure), Acute nontraumatic kidney injury, Weakness generalized, Elevated INR Discharge Plan Patient Disposition: ADMITTED INPATIENT Condition: Stable Prescriptions: No Action metformin 500 mg tablet 500 mg PO BID amlodipine 5 mg tablet 5 mg PO HS allopurinol 100 mg tablet 100 mg PO DAILY omeprazole 40 mg capsule,delayed release(DR/EC) 40 mg PO DAILY levothyroxine 100 mcg tablet 100 mcg PO DAILY simvastatin 40 mg Tablet 40 mg PO DAILY cetirizine 10 mg Tablet 10 mg PO HS amlodipine 5 mg tablet 5 mg PO QDAY aspirin 325 mg Tablet,Delayed Release (Dr/Ec) 325 mg PO DAILY tamsulosin 0.4 mg capsule 0.4 mg PO QDAY meclizine 25 mg tablet 25 mg PO QDAY PRN warfarin 5 mg tablet 5 mg PO QDAY furosemide 20 mg tablet 20 mg PO BID hydrocodone-acetaminophen 10-325 mg tablet 1 tab PO QID PRN (Reason: Pain) dicyclomine 20 mg tablet 20 mg PO QID tramadol 50 mg tablet 50 mg PO QID PRN (Reason: PAIN') gabapentin 300 mg capsule 300 mg PO TID Health Concerns: Post Hospitalization: new medications and changes needed to prevent readmission or further decline. Pt educated and given instructions on all concerns. Plan of Treatment: Continue with present treatment and follow up plan. Pt is to keep follow up appointment as instructed and take medications as ordered. Orders to Discharge Patient Discharge Orders: Transfer (Routine); Ordered 10/09/22 Ordered By: Carlo Miranda Follow ups/Referrals Follow ups/Referrals: Mack Fitzpatrick [Primary Care Provider] - 3 days
--- NOTE | 2022-10-09 17:02 | EKG ---
Test Reason : weakness Blood Pressure : */* mmHG Vent. Rate : 84 BPM Atrial Rate : 84 BPM P-R Int : 180 ms QRS Dur : 90 ms QT Int : 370 ms P-R-T Axes : 28 30 61 degrees QTc Int : 437 ms Normal sinus rhythm Normal ECG No previous ECGs available Confirmed by Tien Lynch ([id number]) on 10/09/2022 8:19:08 PM Referred By: Confirmed By: Tien Lynch
[2022-10-09 17:53] LABS: BASOPHILS % (AUTO) 0.5 % (0.2-1.0); EOSINOPHILS % (AUTO) 0.5 % (0.9-2.9); HEMATOCRIT 29.6 % (42.0-54.0); HEMOGLOBIN 10.4 g/dL (13.5-18.0); LYMPHOCYTES # (AUTO) 0.8 X10^3/uL (1.3-2.9); MEAN CORPUSCULAR HEMOGLOBIN 31.1 pg (27.0-34.0); MEAN CORPUSCULAR HGB CONC 34.9 g/dL (33.0-35.0); MEAN CORPUSCULAR VOLUME 89.1 fL (80.0-100.0); MEAN PLATELET VOLUME 7.7 fL (7.4-11.0); MONOCYTES # (AUTO) 0.5 x10^3/uL (0.3-0.8); MONOCYTES % (AUTO) 5.3 % (0.0-13.0); NEUTROPHILS # (AUTO) 7.7 x10^3/uL (2.2-4.8); NEUTROPHILS % (AUTO) 84.7 % (42.0-75.0); PLATELET COUNT 197 X10^3/uL (150.0-450.0); RED BLOOD COUNT 3.33 X10^6/uL (4.7-6.0); RED CELL DISTRIBUTION WIDTH 13.3 % (11.6-16.5); WHITE BLOOD COUNT 9.1 X10^3/uL (3.6-10.0)
[2022-10-09 18:07] LABS: CALCIUM 8.2 mg/dL (8.5-10.1); CARBON DIOXIDE 31.1 mmol/L (21-32); CREATININE 2.26 mg/dL (0.70-1.30); POTASSIUM 3.9 mmol/L (3.5-5.1); TOTAL PROTEIN 6.6 g/dL (6.4-8.2)
[2022-10-09] MEDS ORDERED: D5 NS 1,000 ML IV 1,000 ML IV ONE (18:07)
[2022-10-09] MEDS ORDERED: LASIX ONE (18:07)
[2022-10-09 18:09] LABS: INR 4.83 (0.8-1.3)
[2022-10-09] MEDS ORDERED: LASIX IVP STA (18:13)
[2022-10-09] MEDS ORDERED: D5 NS 1,000 ML IV 1,000 ML IV STA (18:13)
[2022-10-09 18:47] LABS: COLOR,URINE YELLOW (YELLOW)
[2022-10-09 18:48] LABS: APPEARANCE,URINE CLEAR (CLEAR); BILIRUBIN,URINE NEGATIVE (NEGATIVE); BLOOD/HEMOGLOBIN,URINE NEGATIVE (NEGATIVE); GLUCOSE, URINE NEGATIVE (NEGATIVE); KETONES,URINE NEGATIVE (NEGATIVE); LEUKOCYTE ESTERASE ,URINE NEGATIVE (NEGATIVE); NITRITES,URINE NEGATIVE (NEGATIVE); PROTEIN,URINE NEGATIVE (NEGATIVE); UROBILINOGEN,URINE NORMAL (NORMAL)
--- NOTE | 2022-10-09 19:07 | CT ---
HISTORYdizzy/weak when his knees gave away and he fell to his buttocks. C/O mild pain to lower back. CAOX3, he just feels dizzy, denies N&V, or further pain. states has had a mild cough the past few daysSTUDYBRAIN W/O CONCOMPARISONNoneTECHNIQUEMultiple axial CT images of the head without contrast. Dose reduction techniques including Automated Exposure Control (AEC) and adjustment of mA and kV were utilized.FINDINGSNo visible intracranial hemorrhage or overt acute infarct. Patchy white matter disease nonspecific but compatible with small vessel ischemic change. No ventriculomegaly or midline shift. Basal cisterns appear patent. Globes intact. Included paranasal sinuses and mastoid air cells appear aerated. Skull base and calvarium appear intact. Vascular calcifications.IMPRESSIONNo acute intracranial finding.Electronically signed by: Edwin Mireles (Oct 09, 2022 19:06:05)
[2022-10-09] MEDS: D5 NS 1,000 ML IV 1,000 ML IV SCH (21:38)
[2022-10-09 21:47] VITALS: BMI 31.8
[2022-10-09] MEDS ORDERED: MILK OF MAGNESIA PO PRN (22:04)
--- NOTE | 2022-10-10 00:43 | RAD ---
HISTORYdizzy/weak when his knees gave away and he fell to his buttocks. C/O mild pain to lower back. CAOX3, he just feels dizzy, denies N&V, or further pain. states has had a mild cough the past few daysSTUDYCHEST, 1 VIEWCOMPARISONNone.TECHNIQUEA single frontal view of the chest was obtained.FINDINGSThere are multiple EKG leads and wires seen overlying the patient. There is moderate cardiomegaly with left ventricular hypertrophy. There are small bilateral pleural effusions. There is a right lower lobe infiltrate and patchy alveolar densities seen in the left upper lobe and left lung base. There is no pneumothorax. The osseous structures are intact.IMPRESSIONSmall bilateral pleural effusions with scattered focal alveolar infiltrates of the right lung base, left upper lobe and left lung base.Electronically signed by: Maria Isabel Parks (Oct 10, 2022 00:42:03)
[2022-10-10 05:19] LABS: BASOPHILS % (AUTO) 0.5 % (0.2-1.0); EOSINOPHILS # (AUTO) 0.1 x10^3/uL (0.0-0.2); EOSINOPHILS % (AUTO) 1.2 % (0.9-2.9); HEMATOCRIT 27.4 % (42.0-54.0); HEMOGLOBIN 9.7 g/dL (13.5-18.0); LYMPHOCYTES # (AUTO) 1.5 X10^3/uL (1.3-2.9); LYMPHOCYTES % (AUTO) 23.1 % (21.0-51.0); MEAN CORPUSCULAR HEMOGLOBIN 31.4 pg (27.0-34.0); MEAN CORPUSCULAR HGB CONC 35.4 g/dL (33.0-35.0); MEAN CORPUSCULAR VOLUME 88.7 fL (80.0-100.0); MEAN PLATELET VOLUME 7.9 fL (7.4-11.0); MONOCYTES # (AUTO) 0.5 x10^3/uL (0.3-0.8); MONOCYTES % (AUTO) 7.2 % (0.0-13.0); NEUTROPHILS # (AUTO) 4.5 x10^3/uL (2.2-4.8); PLATELET COUNT 188 X10^3/uL (150.0-450.0); RED BLOOD COUNT 3.09 X10^6/uL (4.7-6.0); RED CELL DISTRIBUTION WIDTH 13.6 % (11.6-16.5); WHITE BLOOD COUNT 6.5 X10^3/uL (3.6-10.0)
[2022-10-10 05:37] LABS: ALANINE AMINOTRANSFERASE 12 Units/L (12-78); ALBUMIN 2.7 g/dL (3.4-5.0); ALKALINE PHOSPHATASE 63 Units/L (46-116); ASPARTATE AMINO TRANSFERASE 8 Units/L (15-37); BLOOD UREA NITROGEN 26 mg/dL (7-18); CALCIUM 8.3 mg/dL (8.5-10.1); CARBON DIOXIDE 32.3 mmol/L (21-32); CHLORIDE 108 mmol/L (98-107); COR CA(FOR HYPOALB) 9.3 mg/dL (8.5-10.1); CREATININE 2.02 mg/dL (0.70-1.30); GLUCOSE 103 mg/dL (65-99); POTASSIUM 3.8 mmol/L (3.5-5.1); SODIUM 146 mmol/L (136-145); TOTAL PROTEIN 6.1 g/dL (6.4-8.2); eGFR NON BLACK RACES 35 (>60)
[2022-10-10] MEDS: SYNTHROID 100 mcg TAB PO SCH (06:07)
[2022-10-10] MEDS: D5 NS 1,000 ML IV 1,000 ML IV SCH ×2 (06:08→18:53)
[2022-10-10 06:42] LABS: INR 6.05 (0.8-1.3)
[2022-10-10] MEDS ORDERED: GLUCOPHAGE ONE (08:38)
[2022-10-10] MEDS: GLUCOPHAGE PO SCH ×2 (08:45→20:17)
[2022-10-10] MEDS: FLOMAX PO SCH (08:45)
[2022-10-10] MEDS: ZYLOPRIM PO SCH (08:45)
[2022-10-10] MEDS: LASIX IVP SCH ×2 (08:45→18:25)
[2022-10-10] MEDS: LEVAQUIN PREMIX IV 750 MG 750 MG/150 ML BAG IV SCH (10:32)
[2022-10-10] MEDS: FORTAZ or TAZICEF VIAL INJ 1 G in NS 100 ML IV 100 ML IV SCH ×2 (11:20→21:21)
[2022-10-10] MEDS: XOPENEX 1.25 MG/3 ML NEBULE NEB SCH ×2 (13:36→20:25)
--- NOTE | 2022-10-10 16:58 | DR.H&P ---
H&P - History & Physical for Day of: H&P Date: 10/09/22 - Chief Complaint Chief Complaint: LOWER EXTREMITY WEAKNESS, DIZZINESS, CONFUSION, SOB - History of Present Illness History of Present Illness: IS A 72 YEAR OLD PATIENT OF OURS. HE PRESENTED TO THE ER WITH COMPLAINTS OF LOWER EXTREMITY WEAKNESS, DIZZINESS, CONFUSION, AND SHORTNESS OF BREATH. PATIENT REPORTS THAT HE WAS OUTSIDE WORKING WHEN HIS SYMPTOMS STARTED. HE REPORTS FALLING TO THE GROUND AND LANDING ON HIS BUTTOCKS. HE REPORTS HAVING MILD LOW BACK PAIN SINCE FALLING. HE DENIES CHEST PAIN, FEVER, BOWEL OR BLADDER COMPLAINTS. EMS REPORTS THAT HIS OXYGEN SATURATION AT HOME WERE IN THE UPPER 80s. HE HAS A PMH OF ALZHEIMERS, ARTHRITIS, A-FIB, DIABETES, GOUT, HTN, CHF, AND LUMBAR DDD. ON ARRIVAL TO THE HOSPITAL, HIS VITALS WERE: 97.9-92-18-94%-118/54. LABS WERE OBTAINED. WBC 9.1, RBC 3.33, HGB 10.4, HCT 29.6, PLT COUNT 197, INR 4.83, SODIUM 143, POTASSIUM 3.9, CHLORIDE 105, BUN 29, CREATININE 2.26, GLUCOSE 112, CALCIUM 8.2, TOTAL BILI 0.30, AST 9, ALT 12, ALK PHOS 71, TROPONIN 8.0, BNP 55.2, TOTAL PROTEIN 6.6, ALBUMIN 3.0, LACTIC ACID 0.9. A URINALYSIS WAS OBTAINED AND WAS UNREMARKABLE. RESPIRATORY VIRAL PANEL WAS COLLECTED. BLOOD CULTURES WERE SET UP. EKG REVEALED: NORMAL SINUS RHYTHM WITH HR 84. A CHEST XRAY WAS OBTAINED AND REVEALED: Small bilateral pleural effusions with scattered focal alveolar infiltrates of the right lung base, left upper lobe and left lung base. A BRAIN CT WAS OBTAINED AND REVEALED: No visible intracranial hemorrhage or overt acute infarct. Patchy white matter disease nonspecific but compatible with small vessel ischemic change. No ventriculomegaly or midline shift. Basal cisterns appear patent. Globes intact. Included paranasal sinuses and mastoid air cells appear aerated. Skull base and calvarium appear intact. Vascular calcifications. WHILE IN THE ER, HIS SATURATIONS DROPPED TO 86% ON 3LPM NASAL CANNULA. HE WAS INCREASED TO 5 LPM. SATURATIONS JONATHAN UP TO 88-89%. HE WAS THEN PLACED ON THE NONREBREATHER. HIS SATURATIONS INCREASED TO 92-94%. HIS BLOOD PRESSURE DROPPED TO 96/42. IN THE ER, HE WAS GIVEN A ONE LITER NORMAL SALINE BOLUS AND LASIX 20MG IV X 1 DOSE. HE WAS ADMITTED TO THE HOSPITAL FOR FURTHER EVALUATION AND TREATMENT OF MULTILOBE PNEUMONIA, CHF, ACUTE RENAL INJURY, GENERALIZED WEAKNESS, AND HYPOTENSION. HE WAS STARTED ON NORMAL SALINE AT 80 ML/HR, LASIX 20MG IV BID, LEVAQUIN 750MG IV Q48H, FORTAZ 1G IV BID, XOPENEX NEBS TID, AND HIS HOME MEDICATIONS WERE RESUMED. HOME MEDS INCLUDE: ALLOPURINOL, DOCUSATE, LEVOTHYROXINE, METFORMIN, AND FLOMAX. WE WILL HOLD HIS COUMADIN DUE TO ELEVATED INR. OTHERWISE, WE PLAN TO FOLLOW-UP WITH AM LABS AND CHEST XRAY AND CONTINUE TO MONITOR. TIME SPENT ON CLINICAL ASSESSMENT, REVIEWING LABS AND IMAGING, DECISION MAKING, AND DOCUMENTATION GREATER THAN 75 MINUTES. - Past Medical History Past Medical History: Hypertension, Diabetes, Alzheimers, Arthritis, Gout - Family History Family Medical History: Diabetes Mellitus, Cancer - Social History Does patient currently use any type of tobacco product: No Have you used tobacco products in the last 12 months: No Type of Tobacco Use: None Does any household member use tobacco: No Alcohol Use: None Drug Use: None - Medications Home Medications: Home Medications Medication Instructions Recorded Confirmed Type allopurinol 100 mg tablet 100 mg PO DAILY 11/26/18 10/09/22 History amlodipine 5 mg tablet 5 mg PO HS 11/26/18 10/09/22 History levothyroxine 100 mcg tablet 100 mcg PO DAILY 11/26/18 10/09/22 History metformin 500 mg tablet 500 mg PO BID 11/26/18 10/09/22 History omeprazole 40 mg capsule,delayed 40 mg PO DAILY 11/26/18 10/09/22 History release simvastatin 40 mg tablet 40 mg PO DAILY 11/26/18 10/09/22 History dicyclomine 20 mg tablet 20 mg PO QID 02/07/20 10/09/22 History hydrocodone 10 mg-acetaminophen 1 tab PO QID PRN Pain 02/07/20 10/09/22 History 325 mg tablet gabapentin 300 mg capsule 300 mg PO TID 10/03/21 10/09/22 History tramadol 50 mg tablet 50 mg PO QID PRN PAIN' 10/03/21 10/09/22 History amlodipine 5 mg tablet 5 mg PO QDAY 10/09/22 10/09/22 History aspirin 325 mg tablet,delayed 325 mg PO DAILY 10/09/22 10/09/22 History release cetirizine 10 mg tablet 10 mg PO HS 10/09/22 10/09/22 History furosemide 20 mg tablet 20 mg PO BID 10/09/22 10/09/22 History meclizine 25 mg tablet 25 mg PO QDAY PRN 10/09/22 10/09/22 History tamsulosin 0.4 mg capsule 0.4 mg PO QDAY 10/09/22 10/09/22 History warfarin 5 mg tablet 5 mg PO QDAY 10/09/22 10/09/22 History - Review of Systems Constitutional: Weakness Eyes: No Symptoms Reported ENT: No Symptoms Reported Respiratory: Shortness of Breath, SOB with Excertion Cardiovascular: Light Headedness Gastrointestinal: No Symptoms Reported Genitourinary: No Symptoms Reported Musculoskeletal: No Symptoms Reported Skin: No Symptoms Reported Neurological: Weakness, Confusion - Physical Exam Vital Signs: Temperature 98.1 F Temperature 97.9 F Pulse Rate [Left Radial] 69 Pulse Rate 74 Pulse Rate 92 Respiratory Rate 12 Respiratory Rate 18 Blood Pressure [Right Arm] 151/66 Blood Pressure [Left Arm] 122/61 Blood Pressure 131/59 Blood Pressure 132/63 O2 Sat by Pulse Oximetry 96 O2 Sat by Pulse Oximetry 94 Oriented: Normal Eyes: Normal Ear: Normal Nose: Normal Throat: Normal Respiratory: Diminished Throughout Cardiovascular: Normal : Normal Auscultation: Bowel Sounds: Normal Palpation: Normal Tenderness: Normal Skin: Decreased Turgur Musculoskeletal: Right, Left, Leg, Instability Psychiatric: Normal Mood Description: Calm Affect: Normal Speech Pattern: Clear - Assessment/Plan (1) Multifocal pneumonia Status: Acute Plan: ADMIT, SUPPLEMENTAL OXYGEN, NORMAL SALINE AT 80 ML/HR, LASIX 20MG IV BID, LEVAQUIN 750MG IV Q48H, FORTAZ 1G IV BID, XOPENEX NEBS TID, AND HIS HOME MEDICATIONS WERE RESUMED. HOME MEDS INCLUDE: ALLOPURINOL, DOCUSATE, LEVOTHYROXINE, METFORMIN, AND FLOMAX. (2) Congestive heart failure (CHF) Qualifiers: Heart failure type: unspecified Heart failure chronicity: acute on chronic Qualified Code(s): I50.9 - Heart failure, unspecified Status: Chronic Plan: LASIX 20MG BID (3) Acute nontraumatic kidney injury Status: Acute Plan: IV HYDRATION (4) Generalized weakness Status: Acute (5) Peripheral edema Status: Acute Plan: LASIX 20MG BID (6) Hypotension Qualifiers: Hypotension type: unspecified hypotension type Qualified Code(s): I95.9 - Hypotension, unspecified Status: Acute Plan: GENTLE IV HYDRATION (7) Elevated INR Status: Acute Plan: HOLD COUMADIN (8) Type 2 diabetes mellitus Qualifiers: Diabetes mellitus prison insulin use: with prison use Diabetes mellitus complication status: with hyperglycemia Qualified Code(s): E11.65 - Type 2 diabetes mellitus with hyperglycemia; Z79.4 - nursing home (current) use of insulin Status: Chronic Plan: OTBS ACHS, CONTINUE HOME MEDS - Allergies Allergies/Adverse Reactions: Allergies Allergy/AdvReac Type Severity Reaction Status Date / Time acetaminophen Allergy Unknown Verified 10/09/22 21:17 [From Lorcet (hydrocodone)] hydrocodone Allergy Unknown Verified 10/09/22 21:17 [From Lorcet (hydrocodone)] Opioids - Morphine Analogues Allergy Verified 10/09/22 21:18
[2022-10-10] MEDS: COLACE CAP 100 MG PO SCH (21:21)
[2022-10-10 22:02] LABS: INR 6.25 (0.8-1.3)
[2022-10-10] MEDS ORDERED: AQUA-MEPHYTON ADULT INJ 5 MG in NS 50 ML IV 50 ML IV ONE (22:45)
[2022-10-10] MEDS: TYLENOL 325 MG TAB PO PRN (23:25)
[2022-10-11] MEDS: D5 NS 1,000 ML IV 1,000 ML IV SCH ×3 (00:16→11:31)
[2022-10-11 05:14] LABS: BASOPHILS % (AUTO) 0.2 % (0.2-1.0); EOSINOPHILS % (AUTO) 0.5 % (0.9-2.9); HEMATOCRIT 27.9 % (42.0-54.0); HEMOGLOBIN 9.9 g/dL (13.5-18.0); LYMPHOCYTES # (AUTO) 1.1 X10^3/uL (1.3-2.9); LYMPHOCYTES % (AUTO) 15.4 % (21.0-51.0); MEAN CORPUSCULAR HEMOGLOBIN 30.9 pg (27.0-34.0); MEAN CORPUSCULAR HGB CONC 35.6 g/dL (33.0-35.0); MEAN CORPUSCULAR VOLUME 86.8 fL (80.0-100.0); MEAN PLATELET VOLUME 7.7 fL (7.4-11.0); MONOCYTES # (AUTO) 0.5 x10^3/uL (0.3-0.8); MONOCYTES % (AUTO) 7.5 % (0.0-13.0); NEUTROPHILS # (AUTO) 5.5 x10^3/uL (2.2-4.8); NEUTROPHILS % (AUTO) 76.4 % (42.0-75.0); PLATELET COUNT 217 X10^3/uL (150.0-450.0); RED BLOOD COUNT 3.21 X10^6/uL (4.7-6.0); RED CELL DISTRIBUTION WIDTH 13.2 % (11.6-16.5); WHITE BLOOD COUNT 7.3 X10^3/uL (3.6-10.0)
[2022-10-11 05:28] LABS: ALANINE AMINOTRANSFERASE 10 Units/L (12-78); ALBUMIN 2.8 g/dL (3.4-5.0); ALKALINE PHOSPHATASE 64 Units/L (46-116); ASPARTATE AMINO TRANSFERASE 8 Units/L (15-37); BLOOD UREA NITROGEN 20 mg/dL (7-18); CALCIUM 8.4 mg/dL (8.5-10.1); CARBON DIOXIDE 30.6 mmol/L (21-32); CHLORIDE 107 mmol/L (98-107); COR CA(FOR HYPOALB) 9.4 mg/dL (8.5-10.1); CREATININE 1.82 mg/dL (0.70-1.30); GLUCOSE 102 mg/dL (65-99); POTASSIUM 3.3 mmol/L (3.5-5.1); SODIUM 147 mmol/L (136-145); TOTAL PROTEIN 6.3 g/dL (6.4-8.2); eGFR NON BLACK RACES 39 (>60)
[2022-10-11] MEDS ORDERED: MICRO K EXTEN CAP 10 MEQ PO PRN (06:00)
[2022-10-11] MEDS ORDERED: POTASSIUM CHLORIDE LIQ 20 MEQ UDC PO PRN (06:00)
[2022-10-11] MEDS ORDERED: KLOR-CON PO PRN (06:00)
[2022-10-11] MEDS ORDERED: K-RIDER 10 MEQ/NS 100 ML 10 MEQ/100 ML BAG IV PRN (06:00)
[2022-10-11] MEDS ORDERED: K-DUR TAB 20 MEQ PO PRN (06:00)
[2022-10-11] MEDS ORDERED: POTASSIUM CHL 40 MEQ/NS 0.45% 500 ML IV PRN (06:00)
[2022-10-11] MEDS ORDERED: POTASSIUM CHL 60 MEQ/NS 0.45% 500 ML IV PRN (06:00)
[2022-10-11 06:05] LABS: INR 2.04 (0.8-1.3)
[2022-10-11] MEDS: XOPENEX 1.25 MG/3 ML NEBULE NEB SCH ×3 (06:05→20:01)
[2022-10-11] MEDS: TYLENOL 325 MG TAB PO PRN (06:25)
--- NOTE | 2022-10-11 06:33 | RAD ---
HISTORYShortness of breathSTUDYCHEST, 1 [id number]/2023FINDINGSThe trachea is midline. The cardiac silhouette is enlarged with a tortuous thoracic aorta . The lungs are clear without focal infiltrate or effusion. The bony thorax is unremarkable.IMPRESSIONNo acute cardiopulmonary disease.Electronically signed by: GUS BALLARD (Oct 11, 2022 06:32:38)
[2022-10-11] MEDS ORDERED: GLUCOPHAGE ONE ×2 (08:36→20:04)
[2022-10-11] MEDS: LASIX IVP SCH ×2 (08:58→17:30)
[2022-10-11] MEDS: FORTAZ or TAZICEF VIAL INJ 1 G in NS 100 ML IV 100 ML IV SCH ×2 (08:59→20:15)
[2022-10-11] MEDS: FLOMAX PO SCH (08:59)
[2022-10-11] MEDS: GLUCOPHAGE PO SCH ×2 (08:59→20:13)
[2022-10-11] MEDS: ZYLOPRIM PO SCH (09:00)
[2022-10-11] MEDS: SYNTHROID 100 mcg TAB PO SCH (09:00)
[2022-10-11] MEDS: COUMADIN TAB 2.5 MG (JANTOVEN) PO SCH (11:30)
[2022-10-11] MEDS: MAGNESIUM SULFATE 1 GRAM/100 mL PREMIX 1 G/100 ML BAG IV PRN ×5 (18:20→23:10)
[2022-10-11] MEDS: COLACE CAP 100 MG PO SCH (20:14)
[2022-10-11] MEDS: NORCO 10/325 TAB PO PRN (23:22)
[2022-10-12] MEDS: D5 NS 1,000 ML IV 1,000 ML IV SCH (01:19)
[2022-10-12 05:20] LABS: BASOPHILS % (AUTO) 0.6 % (0.2-1.0); EOSINOPHILS # (AUTO) 0.1 x10^3/uL (0.0-0.2); EOSINOPHILS % (AUTO) 1.5 % (0.9-2.9); HEMATOCRIT 28.5 % (42.0-54.0); LYMPHOCYTES # (AUTO) 1.5 X10^3/uL (1.3-2.9); LYMPHOCYTES % (AUTO) 20.5 % (21.0-51.0); MEAN CORPUSCULAR HEMOGLOBIN 30.7 pg (27.0-34.0); MEAN CORPUSCULAR VOLUME 87.7 fL (80.0-100.0); MEAN PLATELET VOLUME 7.6 fL (7.4-11.0); MONOCYTES # (AUTO) 0.5 x10^3/uL (0.3-0.8); MONOCYTES % (AUTO) 6.3 % (0.0-13.0); NEUTROPHILS # (AUTO) 5.2 x10^3/uL (2.2-4.8); NEUTROPHILS % (AUTO) 71.1 % (42.0-75.0); PLATELET COUNT 242 X10^3/uL (150.0-450.0); RED BLOOD COUNT 3.25 X10^6/uL (4.7-6.0); RED CELL DISTRIBUTION WIDTH 13.7 % (11.6-16.5); WHITE BLOOD COUNT 7.3 X10^3/uL (3.6-10.0)
[2022-10-12] MEDS: XOPENEX 1.25 MG/3 ML NEBULE NEB SCH ×3 (05:31→21:22)
[2022-10-12 05:35] LABS: ALBUMIN 2.8 g/dL (3.4-5.0); CALCIUM 8.2 mg/dL (8.5-10.1); CARBON DIOXIDE 30.1 mmol/L (21-32); COR CA(FOR HYPOALB) 9.2 mg/dL (8.5-10.1); CREATININE 1.74 mg/dL (0.70-1.30); MAGNESIUM 2.1 mg/dL (2.0-2.9); POTASSIUM 3.6 mmol/L (3.5-5.1); TOTAL PROTEIN 6.5 g/dL (6.4-8.2)
[2022-10-12 06:04] LABS: INR 1.28 (0.8-1.3)
[2022-10-12] MEDS: SYNTHROID 100 mcg TAB PO SCH (06:20)
--- NOTE | 2022-10-12 06:38 | RAD ---
HISTORYShortness of breathSTUDYCHEST, 1 [id number]/2023FINDINGSThe trachea is midline. The cardiac silhouette is enlarged with a tortuous thoracic aorta . The lungs are clear without focal infiltrate or effusion. The bony thorax is unremarkable.IMPRESSIONNo acute cardiopulmonary disease.Electronically signed by: GUS BALLARD (Oct 12, 2022 06:37:37)
[2022-10-12] MEDS ORDERED: GLUCOPHAGE ONE ×2 (08:35→19:37)
[2022-10-12] MEDS: LASIX IVP SCH ×2 (09:02→18:11)
[2022-10-12] MEDS: FORTAZ or TAZICEF VIAL INJ 1 G in NS 100 ML IV 100 ML IV SCH ×2 (09:02→20:34)
[2022-10-12] MEDS: FLOMAX PO SCH (09:03)
[2022-10-12] MEDS: ZYLOPRIM PO SCH (09:03)
[2022-10-12] MEDS: COUMADIN TAB 2.5 MG (JANTOVEN) PO SCH (09:03)
[2022-10-12] MEDS: NORCO 10/325 TAB PO PRN ×2 (09:20→20:38)
[2022-10-12] MEDS ORDERED: COUMADIN TAB 4 MG (JANTOVEN) PO ONE (10:47)
[2022-10-12] MEDS ORDERED: COUMADIN TAB 2 MG (JANTOVEN) PO ONE (10:48)
[2022-10-12] MEDS: GLUCOPHAGE PO SCH ×2 (11:19→20:34)
[2022-10-12] MEDS: LEVAQUIN PREMIX IV 750 MG 750 MG/150 ML BAG IV SCH (11:19)
[2022-10-12] MEDS: LR 1,000 ML IV 1,000 ML IV SCH (11:29)
[2022-10-12] MEDS: COLACE CAP 100 MG PO SCH (20:34)
[2022-10-13 00:05] VITALS: TEMP 98.1
[2022-10-13] MEDS: LR 1,000 ML IV 1,000 ML IV SCH ×2 (02:42→13:16)
[2022-10-13 05:22] LABS: BASOPHILS % (AUTO) 0.7 % (0.2-1.0); EOSINOPHILS # (AUTO) 0.2 x10^3/uL (0.0-0.2); EOSINOPHILS % (AUTO) 2.9 % (0.9-2.9); HEMATOCRIT 28.4 % (42.0-54.0); LYMPHOCYTES # (AUTO) 1.4 X10^3/uL (1.3-2.9); LYMPHOCYTES % (AUTO) 20.5 % (21.0-51.0); MEAN CORPUSCULAR HEMOGLOBIN 30.9 pg (27.0-34.0); MEAN CORPUSCULAR HGB CONC 35.3 g/dL (33.0-35.0); MEAN CORPUSCULAR VOLUME 87.6 fL (80.0-100.0); MEAN PLATELET VOLUME 7.5 fL (7.4-11.0); MONOCYTES # (AUTO) 0.4 x10^3/uL (0.3-0.8); MONOCYTES % (AUTO) 5.7 % (0.0-13.0); NEUTROPHILS # (AUTO) 4.6 x10^3/uL (2.2-4.8); NEUTROPHILS % (AUTO) 70.2 % (42.0-75.0); PLATELET COUNT 256 X10^3/uL (150.0-450.0); RED BLOOD COUNT 3.24 X10^6/uL (4.7-6.0); RED CELL DISTRIBUTION WIDTH 13.4 % (11.6-16.5); WHITE BLOOD COUNT 6.6 X10^3/uL (3.6-10.0)
[2022-10-13 05:29] LABS: ALANINE AMINOTRANSFERASE 12 Units/L (12-78); ALBUMIN 2.8 g/dL (3.4-5.0); ALKALINE PHOSPHATASE 69 Units/L (46-116); ASPARTATE AMINO TRANSFERASE 10 Units/L (15-37); BLOOD UREA NITROGEN 13 mg/dL (7-18); CALCIUM 8.4 mg/dL (8.5-10.1); CHLORIDE 108 mmol/L (98-107); COR CA(FOR HYPOALB) 9.4 mg/dL (8.5-10.1); CREATININE 1.66 mg/dL (0.70-1.30); GLUCOSE 90 mg/dL (65-99); POTASSIUM 3.9 mmol/L (3.5-5.1); SODIUM 145 mmol/L (136-145); TOTAL PROTEIN 6.5 g/dL (6.4-8.2); eGFR NON BLACK RACES 43 (>60)
--- NOTE | 2022-10-13 05:58 | RAD ---
PROCEDURE: Chest X-ray 1 View .HISTORY: Dyspnea and asthenia.TECHNIQUE: AP view .COMPARISON: 10/12/2022.TECHNICAL QUALITY: Satisfactory .FINDINGS:Normal size heart .Mediastinum and hilar regions show no masses or lymphadenopathy .Normal central vascularity .No pulmonary consolidation, masses, pleural fluid, or pneumothorax .No acute bony abnormality .IMPRESSION:No active cardiopulmonary disease .Electronically signed by: Alfonzo Lozano (Oct 13, 2022 05:56:49)
[2022-10-13] MEDS: SYNTHROID 100 mcg TAB PO SCH (06:01)
[2022-10-13 06:04] LABS: INR 1.44 (0.8-1.3)
[2022-10-13] MEDS: XOPENEX 1.25 MG/3 ML NEBULE NEB SCH ×2 (06:05→13:08)
[2022-10-13] MEDS: NORCO 10/325 TAB PO PRN (08:09)
[2022-10-13] MEDS ORDERED: GLUCOPHAGE ONE (09:30)
[2022-10-13] MEDS: COUMADIN TAB 2.5 MG (JANTOVEN) PO SCH (09:43)
[2022-10-13] MEDS: GLUCOPHAGE PO SCH (09:43)
[2022-10-13] MEDS: ZYLOPRIM PO SCH (09:44)
[2022-10-13] MEDS: FORTAZ or TAZICEF VIAL INJ 1 G in NS 100 ML IV 100 ML IV SCH (09:44)
[2022-10-13] MEDS: FLOMAX PO SCH (09:44)
[2022-10-13] MEDS: LASIX IVP SCH (09:44)
[2022-10-13 12:15] VITALS: BP 167/65; PULSE 80; O2SAT 70
== END 2022-10-13 15:48 | disposition home health service (06) | DRG 178 ==
LOC: ER 16:36 → ICU 16:36 → OBSVTOIN 19:44 → ICU 20:53
PROVIDERS: ADMIT Internal Medicine; ATTEND Internal Medicine
DX: G30.8 Other Alzheimer's disease; I50.9 Heart failure, unspecified; R79.1 Abnormal coagulation profile; M54.59 Other low back pain; R42 Dizziness and giddiness; R53.1 Weakness; I48.91 Unspecified atrial fibrillation; J15.211 Pneumonia due to Methicillin susceptible Staphylococcus aureus; I95.89 Other hypotension; R06.02 Shortness of breath; Z79.4 Long term (current) use of insulin; Z20.822 Contact with and (suspected) exposure to COVID-19; W18.39XA Other fall on same level, initial encounter; N17.8 Other acute kidney failure